=== PATIENT | female | born 1935 | race Caucasian/White ===

== ENCOUNTER 2023-12-16 09:54 | Inpatient (IN) | payer MEDICARE, SELFPAY ==
[2023-12-16] VITALS (19 sets, daily range): BP systolic 110–145; BP diastolic 52–98; BMI 21.6
--- NOTE | 2023-12-16 10:16 | CON.CAR ---
Addendum entered and electronically signed by Hair Muñoz MD 12/16/23 17:26:
I saw and examined the patient.
The Rn Admit's note was reviewed and I agree with the note.
Comment:
GEN: No distress, awake, Ox3
HEENT: supple, anicteric, mmm
LUNGS: CTA, no wheezes/rales
CV: Reg, S1/S2, 11/15 syst LSB, no gallop
ABD: soft, BS+, NT/ND
EXT: No edema
NEURO: Gross non-focal
SKIN: No rash
Plan:
She was recently hospitalized at [facility] for syncope and was found to have rapid atrial flutter and atrial fibrillation. Transesophageal echo revealed no left atrial appendage thrombus with a depressed ejection fraction of 20 to 25% but
cardioversion was not performed. At that point her primary digital sales executive felt AV node ablation will be a better choice for her over the long-term. A biventricular pacemaker is already in place.
Plan will be to proceed with AV node ablation. Post procedure we will consider reducing the amiodarone/Toprol doses.
Continue heart failure management with Toprol, Aldactone. Would consider reducing Toprol dose and adding Entresto.
Will need to investigate cost of Jardiance.
Continue Eliquis.
Original Note:
Consultation
Consultation Request
Date/Time Consultation Requested: 12/16/23
Date/Time Consultation Performed: 12/16/23
Performing Provider: Dr. Muñoz
Reason for Consultation: Transfer from [facility] for AV node ablation
Medical History
-
History of Present Illness:
Patient presented to [facility] with chest pain and possible syncope on 12/05/2023. Patient had serially undetectable troponin levels and it was noted and cardiology notes from transfer that she had nonobstructive coronary artery disease by cardiac
catheterization 2008 and again in 2019 so the plan was for conservative management. As for possible syncope on admission her orthostatic vital signs were initially positive but then corrected with IV fluids and knee-high compression stockings. She
continued with symptoms and also had 2:1 atrial flutter versus atrial tachycardia and Afib throughout her admission. She has a history of paroxysmal atrial fibrillation and was previously on amiodarone 100 mg daily but her burden increased leading
up to that admission at [facility]. The patient had a AUDI on 12/11/2023 with the plan for cardioversion to follow, but it appears that ultimately cardioversion was not performed as cardiology felt that the patient's rate control was adequate and
the prospects of a successful cardioversion were limited. The patient already has a Medtronic DOUBLE END PRODUCTION GRINDER�P in place this is a decision was made by cardiology at [facility] to send the patient to [facility] for an AV node ablation.
PMH:
Admitted to [facility] with chest pain and near syncope 12/05/23
s/p Medtronic DOUBLE END PRODUCTION GRINDER-P 12/29/20
Persistent Afib/tach with RVR
spontaneously converted to SR 12/15/23
Nonischemic CM EF 20-25% by AUDI 12/11/23
Chronic anemia, baseline hgb appears to be in 9 range
Chronic left bundle-branch block
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
Anteroseptal/apical scar/Ischemic cardiomyopathy EF 27%
Chronic amiodarone therapy
Chronic Eliquis OAC
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
History of right parietal ischemic stroke 06/2020
Hypertension
Hyperlipidemia
Past Medical History
Past Medical History: Other (in HPI)
Past Surgical History: Cardiac (Medtronic DOUBLE END PRODUCTION GRINDER-P 12/2020), Orthopedic (09/2004) and Other (femoral endarterectomy 08/2009)
Social History
Tobacco: Non-Smoker
Alcohol: None
Drug: None
Living: With Family
Family History
Family History: CAD and Other (CVA)
Allergies / Home Medications
Allergy/AdvReac Type Severity Reaction Status Date / Time
acetaminophen [From Percocet] Allergy Unknown Verified 12/28/20 13:42
diazepam [From Valium] Allergy Unknown Verified 12/28/20 13:42
lisinopril Allergy Unknown Verified 12/28/20 13:42
oxycodone [From Percocet] Allergy Unknown Verified 12/28/20 13:42
Penicillins Allergy Unknown Verified 12/28/20 13:42
Medication Instructions Recorded Confirmed Type
Iron 130 mg PO BID Supplement 12/29/20 12/29/20 History
amiodarone 200 mg tablet 100 mg PO DAILY Heart 12/29/20 12/29/20 History
disease/condition
amlodipine 5 mg tablet 5 mg PO DAILY Blood pressure 12/29/20 12/29/20 History
aspirin 81 mg tablet,delayed 81 mg PO Q48H Blood clot 12/29/20 12/29/20 History
release (Aspir-Low) prevention/tx
epoetin west 40,000 unit/mL 40,000 unit SC .[id number] ANEMIA 12/29/20 12/29/20 History
injection solution (Procrit)
glipizide 10 mg tablet 10 mg PO BID Diabetes 12/29/20 12/29/20 History
levothyroxine 75 mcg capsule 75 mcg PO DAILY Thyroid 12/29/20 12/29/20 History
metoprolol succinate 25 mg 25 mg PO DAILY Blood pressure 12/29/20 12/29/20 History
tablet,extended release 24 hr
pravastatin 20 mg tablet 20 mg PO DAILY High cholesterol 12/29/20 12/29/20 History
spironolactone 25 mg tablet 25 mg PO DAILY Heart Failure 12/29/20 12/29/20 History
Review of Systems
-
History Source: Patient
All other systems: Negative unless noted
Physical Exam
Vital Signs
Temp Pulse Resp Pulse Ox
97.8 F 62 18 96
12/16/23 10:00 12/16/23 10:00 12/16/23 10:00 12/16/23 10:00
GEN: NAD. AAOx3
HEENT: EOMI, MMM
LUNGS: CTA B/L, no wheezes or rales
CV: Reg, S1/S2, 2/6 systolic murmur
ABD: soft, BS+, NT/ND
EXT: No clubbing, cyanosis, lesions or edema B/L
NEURO: Gross non-focal
SKIN: Warm, dry and pink. No rash
Lab Results
Glu 179, BUN 34, Cre 1.2, sodium 134, potassium 5.1, magnesium 1.9
AST 27, ALT 37
WBC 10.6, Hgb 11.1, Hct 32.5, Plt 208
Impression / Plan
-
PCP: Dr. Olga Curry
Primary Fabric Stretcher: Dr. Benedicto Harvey
Assessment:
Transfer from [facility] for AV node ablation 12/16/23
Admitted to [facility] with chest pain and near syncope 12/05/23
s/p Medtronic DOUBLE END PRODUCTION GRINDER-P 12/29/20
Persistent Afib/tach with RVR
spontaneously converted to SR 12/15/23
Nonischemic CM EF 20-25% by AUDI 12/11/23
Chronic anemia, baseline hgb appears to be in 9 range
Chronic left bundle-branch block
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
Anteroseptal/apical scar/Ischemic cardiomyopathy EF 27%
Chronic amiodarone therapy
Chronic Eliquis OAC
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
History of right parietal ischemic stroke 06/2020
Hypertension
Hyperlipidemia
AUDI 12/11/23: [facility] study, EF 20-25%
Plan:
-Patient presented to [facility] with chest pain and possible syncope on 12/05/2023. Patient had serially undetectable troponin levels and it was noted and cardiology notes from transfer that she had nonobstructive coronary artery disease by cardiac
catheterization 2008 and again in 2019 so the plan was for conservative management. As for possible syncope on admission her orthostatic vital signs were initially positive but then corrected with IV fluids and knee-high compression stockings. She
continued with symptoms and also had 2:1 atrial flutter versus atrial tachycardia and Afib throughout her admission. She has a history of paroxysmal atrial fibrillation and was previously on amiodarone 100 mg daily but her burden increased leading
up to that admission at [facility]. The patient had a AUDI on 12/11/2023 with the plan for cardioversion to follow, but it appears that ultimately cardioversion was not performed as cardiology felt that the patient's rate control was adequate and
the prospects of a successful cardioversion were limited. The patient already has a Medtronic DOUBLE END PRODUCTION GRINDER�P in place this is a decision was made by cardiology at [facility] to send the patient to [facility] for an AV node ablation.
-Patient transferred from [facility] to today for a planned AV node ablation.
-Medtronic DOUBLE END PRODUCTION GRINDER-P in place and device checked today after patient arrived. She is now in SR. Afib is new just prior to admission to [facility] 12/05/23. Device report reviewed by me and ECG reviewed by me with sinus rhythm and paced rhythm.
-Patient spontaneously converted to SR prior to transfer.
-Cont Eliquis 2.5 mg BID. Patient had no TI thrombus on AUDI 12/11/23
-Prior to admission patient was taking amiodarone 100 mg daily and the dose was increased to 200 mg BID during [facility] admission.
-Nonobstructive CAD by last cath in 2019. Troponin levels were indeterminate to normal at [facility]. No recurrence of chest pain once rapid arrhythmia rates controlled.
-EF 20-25% by AUDI 12/11/23. Outpatient GDMT continued including Toprol XL but dose increased to 100 mg BID, spironolactone but dose increased to 25 mg daily
--- NOTE | 2023-12-16 10:48 | PTCARENOTE ---
Received the patient from [facility] in a stretcher. She is AAOX3, vital signs are stable. NSR/SB with occasional A/AV pacing noted on the monitor. She has no complains of pain. I assisted her to the commode with a RW x1 assist. She did
complain of dizziness when she stands up. She stated that she has been NPO since midnight. I oriented her to her room and her call gabriel is within reach. Her son and are at her bedside.
[2023-12-16 12:04] LABS: Hematocrit 32.5 % (37.0-47.0); Hemoglobin 11.1 g/dL (12.0-16.0); Mean Corp Hgb Conc. 34.2 g/dL (33.0-37.0); Mean Corpuscular Hgb 30.4 pg (27.0-31.0); Mean Platelet Volume 11.4 fL (7.4-10.4); Platelet Count 208 10^3/uL (130-400); Red Blood Cell Count 3.65 10^6/uL (4.20-5.40); Red Cell Dist. Width 13.8 % (11.5-14.5); White Blood Cell Count 10.6 10^3/uL (4.8-10.8)
[2023-12-16 12:50] LABS: ALT (SGPT) 37 U/L (0-35); AST (SGOT) 27 U/L (14-36); Albumin 3.3 g/dl (3.5-5.0); Alkaline Phosphatase 116 U/L (38-126); Blood Urea Nitrogen 34 mg/dl (7-17); Calcium 8.7 mg/dl (8.4-10.2); Carbon Dioxide 19 mmol/L (22-30); Chloride 109 mmol/L (98-107); Estimated Creatinine Clearance 20 ml/min; Glucose 179 mg/dl (70-99); Magnesium 1.9 mg/dl (1.6-2.3); Potassium 5.1 mmol/L (3.5-5.1); Sodium 134 mmol/L (135-145); Total Bilirubin 0.9 mg/dl (0.2-1.3); Total Protein 5.7 g/dl (6.3-8.2); eGFR 43.54
--- NOTE | 2023-12-16 14:21 | ITS.CL.ABL ---
Warranty Manager - Ablation
Ablation
Procedure Report:
ELECTROPHYSIOLOGY ABLATION REPORT
Date of procedure: December 16, 2023
Referring: Dr. Benedicto Harvey
INDICATION: Atrial fibrillation with rapid ventricular response which is medically refractory
HISTORY:
Recent admission for atrial fibrillation with rapid ventricular response and converted to sinus rhythm on amiodarone therapy.
'TIME-OUT': called and confirmed.
SEDATION/ANESTHESIA: Conscious
Vascular access: She has prior surgical scar in the right groin from prior dissection�bleeding during right femoral arterial access for left heart catheterization. We utilized ultrasound guidance for direct venipuncture on that side away from the
prior surgical scar and placed an 8 Wallisian short sheath which at the end of the case was removed with manual pressure.
PROCEDURE:
(1) The biventricular pacemaker placed in 2020 was interrogated and reprogrammed to VVI@40 ppm.
(2) A deflectable-tip mapping/ablation catheter was advanced to the medial tricuspid annulus region where a HIS potential identified. The catheter was slightly withdrawn from this location to a site more proximal, about correction between the HIS
recording position and that of the coronary sinus os. At this location, a small HIS potential was evident along with large amplitude atrial deflections and a relatively small ventricular electrogram.
Radiofrequency energy was applied at this site using a temperature-controlled system. 2 seconds after the onset of power delivery, an accelerated junctional rhythm occurred followed by deceleration and heart block. This RF application (max power
set: 70 W, Max temperature set: 60 degrees was continued for sequential 15 second lesions. At the conclusion of this, no escape rhythm was present.
(3) The biventricular pacemaker was interrogated and found to have stable function compared to the pre-ablation findings.
Pacing reprogrammed to DDDR@60-130 ppm.
COMPLICATIONS: None
SUMMARY: Status post AV bing ablation
RECOMMENDATIONS:
1. Out of bed 4 hours
2. Will have PT and OT evaluation and continue amiodarone loading plus apixaban
Copy to: Dr. Benedicto Harvey
--- NOTE | 2023-12-16 14:56 | PTCARENOTE ---
Received the patient from the labor relations consultant in her bed. The patient is AAOX3, VSS, and 93% on RA. 100% av paving is noted on the monitor. Instructed the patient on activity restrictions and expected oob time. Her call gabriel is within reach. Her family is
at her bedside.
[2023-12-16] MEDS: TYLENOL 650 MG PO (16:46)
[2023-12-16 17:36] LABS: Glucose - Point of Care 163 mg/dl (70-99)
[2023-12-16] MEDS: NOVOLOG FLEXPEN-MODERATE RESISTANCE 1 UNITS SC (18:40)
[2023-12-16] MEDS: GLUCOTROL 10 MG PO (19:36)
[2023-12-16] MEDS: PACERONE 200 MG PO (19:36)
[2023-12-16] MEDS: ELIQUIS 2.5 MG PO (19:37)
[2023-12-16] MEDS: TOPROL XL 100 MG PO (19:37)
--- NOTE | 2023-12-16 19:50 | PTCARENOTE ---
Assumed care of patient at 1900, patient AAO, denies chest pain/discomfort. Patient AV paced on monitor, VSS, lungs clear/diminished bilaterally, SPO2 96% on RA. Abd soft, non tender, Voiding without issue. Palpable distal pulses. PIV assessed
and maintained. Full assessment completed as documented, plan of care discussed with patient verbalizing understanding.
[2023-12-16] MEDS: LIPITOR 40 MG PO (21:25)
[2023-12-16 21:29] LABS: Glucose - Point of Care 316 mg/dl (70-99)
--- NOTE | 2023-12-16 23:27 | PTCARENOTE ---
No acute changes in assessment, patient resting comfortably, remains AV paced on monitor, VSS.
[2023-12-17] VITALS (10 sets, daily range): BP systolic 121–141; BP diastolic 64–87; PULSE 66–68; O2SAT 98; BMI 21.4
[2023-12-17 04:49] LABS: Hematocrit 30.3 % (37.0-47.0); Hemoglobin 10.4 g/dL (12.0-16.0); Mean Corp Hgb Conc. 34.3 g/dL (33.0-37.0); Mean Corpuscular Hgb 31.3 pg (27.0-31.0); Mean Corpuscular Volume 91.3 fL (81.0-99.0); Platelet Count 198 10^3/uL (130-400); Red Blood Cell Count 3.32 10^6/uL (4.20-5.40); Red Cell Dist. Width 13.8 % (11.5-14.5); White Blood Cell Count 8.2 10^3/uL (4.8-10.8)
[2023-12-17 05:32] LABS: Blood Urea Nitrogen 32 mg/dl (7-17); Calcium 8.3 mg/dl (8.4-10.2); Carbon Dioxide 19 mmol/L (22-30); Chloride 112 mmol/L (98-107); Estimated Creatinine Clearance 18 ml/min; Glucose 151 mg/dl (70-99); Magnesium 1.8 mg/dl (1.6-2.3); Potassium 4.7 mmol/L (3.5-5.1); Sodium 137 mmol/L (135-145); eGFR 39.55
[2023-12-17] MEDS: SYNTHROID 88 MCG PO (06:38)
--- NOTE | 2023-12-17 07:20 | W.PN.CARDCBS ---
Addendum entered and electronically signed by Olinda Joshi PA-C 12/17/23 09:13:
Patient and family agreeable to transfer to [facility] for rehab.
dictation # [id number]
Addendum entered and electronically signed by Adan Martell MD 12/17/23 09:08:
patient seen and examined
appropriate AV pacing on tele (BIV)
agree with PA-Lakeisha note and assessment
agree with PA-Lakeisha plan
exam:
heent ncat
jvp 6
cor regular
lungs ctab
abd soft nt nd
no ext edema
aao x3
non focal neurologically
Assessment:
s/p AV node ablation 12/16/23
Transfer from [facility] for AV node ablation 12/16/23
Admitted to [facility] with chest pain and near syncope 12/05/23
s/p Medtronic RESTAURANT LINE COOK-P 12/29/20
Persistent Afib/tach with RVR
spontaneously converted to SR 12/15/23Nonischemic CM EF 20-25% by AUDI 12/11/23
Chronic anemia, baseline hgb appears to be in 9 range
Chronic left bundle-branch block
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
Right femoral artery dissection complicating cath treated with femoral endarterectomy/patch angioplastyAnteroseptal/apical scar/Ischemic cardiomyopathy EF 27%
Chronic amiodarone therapy
Chronic Eliquis OAC
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
History of right parietal ischemic stroke 06/2020
Hypertension
Hyperlipidemia
AUDI 12/11/23: [facility] study, EF 20-25%
Plan:
-Patient is s/p successful AV node ablation 12/16/23. ECG is AV paced 12/16/23.
-Medtronic RESTAURANT LINE COOK-P in place and device checked 12/16/23. She is now in SR. Persistent Afib was relatively new just prior to admission to [facility] 12/05/23.
-Prior to admission at [facility] patient was taking amiodarone 100 mg daily and the dose was increased to 200 mg BID during [facility] admission. Will continue to load and then reduce to 200 mg daily.
-Cont Eliquis 2.5 mg BID. Patient had no TI thrombus on AUDI 12/11/23
-Nonobstructive CAD by last cath in 2019. Troponin levels were indeterminate to normal at [facility]. No recurrence of chest pain once rapid arrhythmia rates controlled.
-EF 20-25% by AUDI 12/11/23. Outpatient GDMT continued including Toprol XL but dose increased to 100 mg BID, spironolactone but dose increased to 25 mg daily
-Pending evaluations by PT/OT will plan for likely d/c 12/17/23
HPI: Patient presented to [facility] with chest pain and possible syncope on 12/05/2023.� Patient had serially undetectable troponin levels and it was noted and cardiology notes from transfer that she had nonobstructive coronary artery disease by cardiac
catheterization 2008 and again in 2019 so the plan was for conservative management.� As for possible syncope on admission her orthostatic vital signs were initially positive but then corrected with IV fluids and knee-high compression stockings.� She
continued with symptoms and also had 2:1 atrial flutter versus atrial tachycardia and Afib throughout her admission.� She has a history of paroxysmal atrial fibrillation and was previously on amiodarone 100 mg daily but her burden increased leading
up to that admission at [facility].� The patient had a AUDI on 12/11/2023 with the plan for cardioversion to follow, but it appears that ultimately cardioversion was not performed as cardiology felt that the patient's rate control was adequate and
the prospects of a successful cardioversion were limited.� The patient already has a Medtronic RESTAURANT LINE COOK�P in place this is a decision was made by cardiology at [facility] to send the patient to [facility] for an AV node ablation.
Original Note:
Today's Communication / Plan
-
PT/OT eval
In SR, cont amio
Possible d/c to home today
Impression / Plan
-
PCP: Dr. Olga Curry
Primary Doorperson Or Luggage Porter: Dr. Benedicto Harvey
Assessment:
s/p AV node ablation 12/16/23
Transfer from [facility] for AV node ablation 12/16/23
Admitted to [facility] with chest pain and near syncope 12/05/23
s/p Medtronic RESTAURANT LINE COOK-P 12/29/20
Persistent Afib/tach with RVR
spontaneously converted to SR 12/15/23
Nonischemic CM EF 20-25% by AUDI 12/11/23
Chronic anemia, baseline hgb appears to be in 9 range
Chronic left bundle-branch block
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
Anteroseptal/apical scar/Ischemic cardiomyopathy EF 27%
Chronic amiodarone therapy
Chronic Eliquis OAC
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
History of right parietal ischemic stroke 06/2020
Hypertension
Hyperlipidemia
AUDI 12/11/23: [facility] study, EF 20-25%
Plan:
-Patient is s/p successful AV node ablation 12/16/23. ECG is AV paced 12/16/23.
-Medtronic RESTAURANT LINE COOK-P in place and device checked 12/16/23. She is now in SR. Persistent Afib was relatively new just prior to admission to [facility] 12/05/23.
-Prior to admission at [facility] patient was taking amiodarone 100 mg daily and the dose was increased to 200 mg BID during [facility] admission. Will continue to load and then reduce to 200 mg daily.
-Cont Eliquis 2.5 mg BID. Patient had no TI thrombus on AUDI 12/11/23
-Nonobstructive CAD by last cath in 2019. Troponin levels were indeterminate to normal at [facility]. No recurrence of chest pain once rapid arrhythmia rates controlled.
-EF 20-25% by AUDI 12/11/23. Outpatient GDMT continued including Toprol XL but dose increased to 100 mg BID, spironolactone but dose increased to 25 mg daily
-Pending evaluations by PT/OT will plan for likely d/c 12/17/23
HPI: Patient presented to [facility] with chest pain and possible syncope on 12/05/2023. Patient had serially undetectable troponin levels and it was noted and cardiology notes from transfer that she had nonobstructive coronary artery disease by cardiac
catheterization 2008 and again in 2019 so the plan was for conservative management. As for possible syncope on admission her orthostatic vital signs were initially positive but then corrected with IV fluids and knee-high compression stockings. She
continued with symptoms and also had 2:1 atrial flutter versus atrial tachycardia and Afib throughout her admission. She has a history of paroxysmal atrial fibrillation and was previously on amiodarone 100 mg daily but her burden increased leading
up to that admission at [facility]. The patient had a AUDI on 12/11/2023 with the plan for cardioversion to follow, but it appears that ultimately cardioversion was not performed as cardiology felt that the patient's rate control was adequate and
the prospects of a successful cardioversion were limited. The patient already has a Medtronic RESTAURANT LINE COOK�P in place this is a decision was made by cardiology at [facility] to send the patient to [facility] for an AV node ablation.
Progress Note - Doorperson Or Luggage Porter
Subjective
Date of Service: December 17, 2023
She feels well, no palpitations
Objective
Labs:
12/17/23 04:15
12/17/23 04:15
Labs
Hgb 10.4 g/dL (12.0-16.0) L 12/17/23 04:15
Hct 30.3 % (37.0-47.0) L 12/17/23 04:15
Plt Count 198 10^3/uL (130-400) 12/17/23 04:15
Sodium 137 mmol/L (135-145) 12/17/23 04:15
Potassium 4.7 mmol/L (3.5-5.1) 12/17/23 04:15
BUN 32 mg/dl (7-17) H 12/17/23 04:15
Creatinine 1.3 mg/dL (0.6-1.0) H 12/17/23 04:15
Glucose 151 mg/dl (70-99) H 12/17/23 04:15
Vital Signs and I&O:
Vital Signs
Temp Pulse Resp BP Pulse Ox
97.9 F 60 16 131/68 95
12/17/23 03:55 12/17/23 03:52 12/17/23 03:55 12/17/23 03:52 12/17/23 03:55
Vital Signs
Temp Pulse Resp BP Pulse Ox
97.9 F 60 16 131/68 95
12/17/23 03:55 12/17/23 03:52 12/17/23 03:55 12/17/23 03:52 12/17/23 03:55
Intake & Output
12/15/23 12/16/23 12/17/23 12/18/23
06:59 06:59 06:59 06:59
Intake Total 240 / 240
Output Total 960 / 960
Balance -720 / -720
Physical Exam
Physical Exam
GEN: NAD. AAOx3
HEENT: EOMI, MMM
LUNGS: CTA B/L, no wheezes or rales
CV: Reg, S1/S2, 2/6 systolic murmur
ABD: soft, BS+, NT/ND
EXT: No clubbing, cyanosis, lesions or edema B/L
NEURO: Gross non-focal
SKIN: Warm, dry and pink. No rash
[2023-12-17] MEDS: GLUCOTROL 10 MG PO (08:35)
[2023-12-17] MEDS: TOPROL XL 100 MG PO (08:35)
[2023-12-17] MEDS: ELIQUIS 2.5 MG PO (08:35)
[2023-12-17] MEDS: PACERONE 200 MG PO (08:36)
[2023-12-17] MEDS: ALDACTONE 12.5 MG PO (08:36)
[2023-12-17] MEDS: FLUSH (NSS) 1 FLUSH IV (08:36)
[2023-12-17 08:54] LABS: Glycohemoglobin (HgbA1c) 7.5 % (4.0-5.6)
--- NOTE | 2023-12-17 09:05 | W.DS.TRANS ---
DC Summary - Material Inspector
-
Discharge Instructions:
Sleep Apnea Risk Intermediate
Discharge Diagnosis/Procedures AV node ablation
Diet Low Cholesterol,Diabetic, Carb Controlled
Activity Other activity
Driving Restrictions No driving for 24 hours
Bathing Restrictions OK to Shower
Stop these medications: -STOP taking aspirin
Instructions:
Stand-Alone Forms: DC Instructions- Cath/EP Lab
Changes to Home Medications: Yes
Discharge Medications:
DC Medications w/original date entered in [facility]
Iron 130 mg PO BID Supplement 12/29/20
epoetin west 40,000 unit/mL injection solution (Procrit) 40,000 unit SC .[id number] ANEMIA 12/29/20
glipizide 10 mg tablet 10 mg PO BID Diabetes 12/29/20
metoprolol succinate 25 mg tablet,extended release 24 hr 100 mg PO BID Blood pressure 12/29/20
spironolactone 25 mg tablet 12.5 mg PO DAILY Heart Failure 12/29/20
apixaban 2.5 mg tablet (Eliquis) 2.5 mg PO BID 12/16/23
atorvastatin 40 mg tablet 40 mg PO HS 12/16/23
levothyroxine 88 mcg tablet 88 mcg PO DAILY 12/16/23
amiodarone 200 mg tablet 200 mg PO DAILY Arrhythmia #30 tabs 12/17/23
amiodarone 200 mg tablet 200 mg PO Q12 Arrhythmia #28 tabs 12/17/23
Home Medication Changes
Aspirin stopped
Amiodarone dose increased
Pending Results: No
[2023-12-17 09:09] LABS: Glucose - Point of Care 151 mg/dl (70-99)
--- NOTE | 2023-12-17 09:27 | CM ---
Chart reviewed. Patient is independent of ADLS, lives with her in a [address], [facility], ambulates with a SPC and a rolling walker. Patient has become deconditioned from being an inpatient at [facility] since 12/05. Patient's daughter in law works at
[facility] and would like her to go there. Patient is agreeable. Bed available and confirmed. Wheelchair van arranged for 3pm. Patient's daughter in law, Galina, made aware. Plan is for the patient to be discharged to [facility].
[2023-12-17] MEDS: NOVOLOG FLEXPEN-MODERATE RESISTANCE 1 UNITS SC ×2 (09:58→13:08)
[2023-12-17 13:06] LABS: Glucose - Point of Care 184 mg/dl (70-99)
[2023-12-17] MEDS: FLUZONE HIGH-DOSE QUAD 2023-24 0.699999999999999956 ML IM (13:07)
== END 2023-12-17 16:46 | DRG 274 ==
LOC: IVU 09:54
PROVIDERS: Physician Assistant Medical; ADMITTING PHYSICIAN Internal Medicine Cardiovascular Disease; OTHER PHYSICIAN Internal Medicine Cardiovascular Disease
PROC: 02583ZZ Destruction of Conduction Mechanism, Percutaneous Approach (ICD-10-PCS; 2023-12-16)
DX: I48.19 Other persistent atrial fibrillation (principal); I48.92 Unspecified atrial flutter; I50.9 Heart failure, unspecified; I11.0 Hypertensive heart disease with heart failure; Z79.01 Long term (current) use of anticoagulants; E78.00 Pure hypercholesterolemia, unspecified; D64.9 Anemia, unspecified
CPT/HCPCS: 80048; 80053; 82962; 83036; 83735; 85027; 87070; 90662; 93005; 93650; 97162; 97166; 97535; C1733; C1894; G0008

== ENCOUNTER → 2023-12-22 10:43 | Outpatient (REF) | payer OTHER, MEDICARE, SELFPAY ==
[2023-12-22 11:49] LABS: % Basophils 0.3 % (0-2); % Eosinophils 2.3 % (0-6); % Immature Granulocytes 0.5 % (0-0.5); % Lymphocytes 10.4 % (20.5-51.1); % Monocytes 6.9 % (1.7-9.3); % Neutrophils 79.6 % (42.2-75.2); Absolute Eosinophils 0.3 10^3/uL (0-0.7); Absolute Immature Granulocytes 0.1 10^3/uL (0-0.05); Absolute Lymphocytes 1.3 10^3/uL (1.2-3.4); Absolute Monocytes 0.9 10^3/uL (0.1-0.6); Absolute Neutrophils 9.9 10^3/uL (1.4-6.5); Hematocrit 33.3 % (37.0-47.0); Mean Corpuscular Volume 93.8 fL (81.0-99.0); Mean Platelet Volume 10.9 fL (7.4-10.4); Nucleated Red Blood Cells % 0 %; Platelet Count 214 10^3/uL (130-400); Red Blood Cell Count 3.55 10^6/uL (4.20-5.40); Red Cell Dist. Width 13.7 % (11.5-14.5); White Blood Cell Count 12.4 10^3/uL (4.8-10.8)
[2023-12-22 12:20] LABS: ALT (SGPT) 24 U/L (0-35); AST (SGOT) 28 U/L (14-36); Albumin 3.2 g/dl (3.5-5.0); Alkaline Phosphatase 100 U/L (38-126); Blood Urea Nitrogen 26 mg/dl (7-17); Calcium 8.3 mg/dl (8.4-10.2); Carbon Dioxide 22 mmol/L (22-30); Chloride 108 mmol/L (98-107); Glucose 142 mg/dl (70-99); Magnesium 1.8 mg/dl (1.6-2.3); Potassium 4.9 mmol/L (3.5-5.1); Sodium 135 mmol/L (135-145); Total Bilirubin 0.6 mg/dl (0.2-1.3); Total Protein 5.6 g/dl (6.3-8.2); eGFR 48.33
[2023-12-22 12:33] LABS: TSH 1.15 uIU/ml (0.47-4.68)
[2023-12-23 11:43] LABS: Glycohemoglobin (HgbA1c) 7.4 % (4.0-5.6)
== END ==
LOC: OLABN 10:43
PROVIDERS: ATTENDING PHYSICIAN Student in an Organized Health Care Education/Training Program
DX: E11.9 Type 2 diabetes mellitus without complications (principal); D50.9 Iron deficiency anemia, unspecified; E83.42 Hypomagnesemia; E03.9 Hypothyroidism, unspecified
CPT/HCPCS: 36415; 80053; 83036; 83735; 84443; 85025

== ENCOUNTER → 2023-12-23 13:51 | Outpatient (REF) | payer OTHER, MEDICARE, SELFPAY ==
[2023-12-23 19:06] LABS: Urine Albumin Trace (Neg - Trace); Urine Bilirubin Negative (Negative); Urine Character Clear (Clear); Urine Color Yellow; Urine Glucose Negative (Negative); Urine Ketone Negative (Negative); Urine Leukocyte Trace (Negative); Urine Nitrite Negative (Negative); Urine Occult Blood Negative (Negative); Urine Urobilinogen Negative (Neg - 1+)
[2023-12-23 19:15] LABS: Urine Red Blood Cell None Seen /HPF (0-2)
== END ==
LOC: OLABN 13:51
PROVIDERS: ATTENDING PHYSICIAN Student in an Organized Health Care Education/Training Program
DX: R35.0 Frequency of micturition (principal); R39.15 Urgency of urination
CPT/HCPCS: 81003; 81015; 87086

== ENCOUNTER 2024-01-23 11:13 | Inpatient (IN) | payer MEDICARE, SELFPAY ==
[2024-01-23] VITALS (21 sets, daily range): BP systolic 88–140; BP diastolic 43–75; BMI 23.3; BMI 22.4
[2024-01-23 09:45] LABS: % Basophils 0.1 % (0-2); % Eosinophils 1.5 % (0-6); % Immature Granulocytes 0.6 % (0-0.5); % Lymphocytes 8.9 % (20.5-51.1); % Monocytes 8.3 % (1.7-9.3); % Neutrophils 80.6 % (42.2-75.2); Absolute Eosinophils 0.2 10^3/uL (0-0.7); Absolute Immature Granulocytes 0.1 10^3/uL (0-0.05); Absolute Lymphocytes 0.9 10^3/uL (1.2-3.4); Absolute Monocytes 0.8 10^3/uL (0.1-0.6); Absolute Neutrophils 8.1 10^3/uL (1.4-6.5); Mean Corp Hgb Conc. 30.2 g/dL (33.0-37.0); Mean Corpuscular Hgb 31.9 pg (27.0-31.0); Mean Corpuscular Volume 105.9 fL (81.0-99.0); Mean Platelet Volume 10.5 fL (7.4-10.4); Nucleated Red Blood Cells % 0.3 %; Platelet Count 221 10^3/uL (130-400); Red Blood Cell Count 1.88 10^6/uL (4.20-5.40); Red Cell Dist. Width 19.4 % (11.5-14.5); White Blood Cell Count 10.1 10^3/uL (4.8-10.8)
[2024-01-23 09:50] LABS: Hematocrit 19.9 % (37.0-47.0)
[2024-01-23 09:56] LABS: ALT (SGPT) 23 U/L (0-35); AST (SGOT) 34 U/L (14-36); Albumin 2.9 g/dl (3.5-5.0); Alkaline Phosphatase 91 U/L (38-126); Blood Urea Nitrogen 34 mg/dl (7-17); Calcium 7.8 mg/dl (8.4-10.2); Carbon Dioxide 22 mmol/L (22-30); Chloride 105 mmol/L (98-107); Estimated Creatinine Clearance 17 ml/min; Glucose 170 mg/dl (70-99); Potassium 4.5 mmol/L (3.5-5.1); Sodium 131 mmol/L (135-145); Total Bilirubin 0.6 mg/dl (0.2-1.3); Total Protein 5.2 g/dl (6.3-8.2); eGFR 36.19
[2024-01-23 10:01] LABS: INR 1.34; PT 16.4 Sec (11.4-14.6)
[2024-01-23 10:08] LABS: Troponin I 0.041 ng/ml
[2024-01-23] MEDS: PROTONIX IV 80 MG IV (10:10)
--- NOTE | 2024-01-23 10:25 | ED.GENMED ---
History of Present Illness
General
Chief Complaint: Chest Pain
Source: patient, ambulance crew and shelter
Exam Limitations: none
Time Seen by Provider: 01/23/24 09:41
Nursing documentation reviewed up to this point in time: agreed with
Travel History
Have you had any contact with someone who has COVID-19?: No
Do you have any symptoms of coronavirus? Fever > 100 degrees, chills, cough, shortness of breath, sore throat, loss of taste or smell, muscle aches, or headache?: No
History of Present Illness
History of Present Illness:
88-year-old female with Wade history of A-fib currently on Eliquis last dose 4 hours prior to arrival to the emergency department, cardiomyopathy CAD, pacemaker in place, NIDDM, hypothyroidism presenting to the emergency department today with
concerns of chest pain shortness of breath going to the bathroom a few hours prior to arrival. This resolved with rest has been feeling some lightheadedness with exertion over the past week or so. Also was noticed dark in stool over the past few
weeks. Denies abdominal pain has had some loose stool over the past few days
Review of Systems
Review of Systems
Allergies reviewed?: Yes
All Other Systems: ROS reviewed and negative except as documented in HPI and ROS
Phy Exam
Physical Exam
Physical Exam:
GENERAL: Alert , in no apparent distress
EYE: pupils equal and reactive
NECK: Supple, no significant adenopathy.
ENT: o/p clr, mmm.
CARDIAC: Regular rate and rhythm .
LUNGS: Clear breath sounds bilaterally, no acute respiratory distress, no wheezes/rales/rhonchi
ABDOMEN: Soft, without focal tenderness, no r/g, no cvat
NEUROLOGICAL: Alert and oriented, no focal neuro deficits
SKIN: Warm and dry, skin intact.
MUSCULOSKELETAL: No edema, well perfused.
PSYCH: Normal and appropriate interaction.
Scores
Heart Score for Chest Pain Patients
STEMI patient?: No
History: Moderately Suspicious
ECG: Nonspecific Repolarization
Age: >/= 65 years
Risk Factors: >/= 3 Risk Factors or History of CAD
Troponin: >1 - <3 x Normal Limit
Heart Score for Chest Pain Patients: 7
Heart Score Risk: 72.7 % MACE over next 6 weeks
Course
Orders/Labs/Results
Orders:
Orders
01/23/24 09:19
Electrocardiogram (*1) Urgent
Reason for Study: Chest Pain
Cardiac Monitoring- Treatment ONCE
EKG- Treatment ONCE
IV Insert/Care/Rem.- Treatment PRN
O2 Therapy [RESP] Urgent
Titrate/Wean O2 to maintain O2 sat greater than (%): 90
Special Instructions: Maintain sats >/=90%
Pulse Ox/spot Check [RESP] Urgent
Quantity: 1
Special Instructions: ON ROOM AIR
01/23/24 09:20
Complete Blood Count/With Diff Urgent
Comprehensive Metabolic Panel Urgent
Prothrombin Time Urgent
Troponin I Urgent
01/23/24 09:43
Chest [CR Chest - 2 Views ] Urgent
Comment:
Reason For Exam: cp
01/23/24 10:04
* Blood Bank Products Urgent
Blood Bank Products: *Packed RBC Leuko(PRBC's)
Quantity: 2
Transfuse Today: Yes
Reason: Anemia
01/23/24 10:05
Pantoprazole [Protonix IV] 80 mg IV NOW STA
01/23/24 10:09
Type And Crossmatch Urgent
01/23/24 10:22
Add On- LAB Routine
Tests Added?: ferritin, TIBC, iron level, B12 level, folate level
GASTROINTESTINAL CONSULT Routine
Consulting Provider: Hardy Mccoy
Was physician already notified: Yes
Abnormal Lab Results
01/23/24 01/23/24
09:20 10:09
RBC 1.88 L 10^6/uL
(4.20-5.40)
Hgb 6.0 L* g/dL
(12.0-16.0)
Hct 19.9 L* %
(37.0-47.0)
MCV 105.9 H fL
(81.0-99.0)
MCH 31.9 H pg
(27.0-31.0)
MCHC 30.2 L g/dL
(33.0-37.0)
RDW 19.4 H %
(11.5-14.5)
MPV 10.5 H fL
(7.4-10.4)
Abs Immat Gran (auto) 0.1 H 10^3/uL
(0-0.05)
Absolute Neuts (auto) 8.1 H 10^3/uL
(1.4-6.5)
Absolute Lymphs (auto) 0.9 L 10^3/uL
(1.2-3.4)
Absolute Monos (auto) 0.8 H 10^3/uL
(0.1-0.6)
Immature Gran % 0.6 H %
(0-0.5)
Neutrophils % 80.6 H %
(42.2-75.2)
Lymphocytes % 8.9 L %
(20.5-51.1)
PT 16.4 H Sec
(11.4-14.6)
Sodium 131 L mmol/L
(135-145)
BUN 34 H mg/dl
(7-17)
Creatinine 1.4 H mg/dL
(0.6-1.0)
Glucose 170 H mg/dl
(70-99)
Calcium 7.8 L mg/dl
(8.4-10.2)
Troponin I 0.041 H* ng/ml
Total Protein 5.2 L g/dl
(6.3-8.2)
Albumin 2.9 L g/dl
(3.5-5.0)
Crossmatch IS Only See Detail
01/23/24 09:20
01/23/24 09:20
Vital Signs
Initial and Last Documented VS:
Initial Vital Signs
Temp Pulse Resp BP Pulse Ox
98.4 F 63 22 114/71 99
01/23/24 09:21 01/23/24 09:21 01/23/24 09:21 01/23/24 09:21 01/23/24 09:21
Last Documented Vital Signs
Temp Pulse Resp BP Pulse Ox
98.4 F 60 21 106/50 94
01/23/24 09:21 01/23/24 10:15 01/23/24 10:15 01/23/24 10:02 01/23/24 09:55
MDM/Problems Addressed
MDM/Problems Addressed:
88-year-old female presenting to the emergency department today with concerns of chest discomfort lightheadedness walking to the back this morning resolved with upon arrival vital signs are normal EKG without emergent findings hemoglobin to be 6
which is 5 points lower than previous hemoglobin 1 month ago. She also claims that her stool has been dark and is guaiac positive. No abdominal pain. Patient was written for 2 units of blood GI was immediately consulted patient admitted for
transfusion and GI assessment.
*Critical Care Note
Total Time (30-74mins, 75-104mins- exclusive of procedures): Not Applicable
ED Attending Note
-
Portions of this chart may have been created with voice recognition software.� Occasional wrong word or��sound alike� substitutions may have occurred due to the inherent limitations of voice recognition software.
Discharge Plan
Departure
Patient Disposition: Admit
Date of Disposition: 01/23/24
Time of Disposition: 10:26
Admit to: IMU
Admit to doctor: Verdin
Presentation/result/management discussed w/ accepting MD/DO: Hospitalist
Patient with high blood pressure during this ER visit?: No
Condition: Good
Covid-19: Not Applicable
Discharge Problem:
Anemia, GI bleed
Prescriptions:
No Action
glipizide 10 MG tablet
5 mg PO BID
spironolactone 25 MG tablet
12.5 mg PO DAILY
Procrit 40,000 UNIT/ML solution
40,000 unit SC UD
Rx Instructions:
hold 6 days, administer 1 day hold for 14 days
ferrous sulfate 325 mg (65 mg iron) Tablet
650 mg PO BID Qty: 0
Patient Comments:
65mg tablets, takes 2 tabs BID
atorvastatin 40 mg Tablet
40 mg PO HS
levothyroxine 88 mcg Tablet
88 mcg PO DAILY
Eliquis 2.5 mg Tablet
2.5 mg PO BID
amiodarone 200 mg tablet
200 mg PO DAILY Qty: 30 11RF
acetaminophen [Tylenol] 325 mg Tablet
650 mg PO Q4HPRN PRN (Reason: mild pain)
lidocaine 4 % Adhesive Patch,Medicated
1 patch TOPICAL DAILY
trazodone 50 mg Tablet
25 mg PO Q8HPRN PRN (Reason: anxiety)
metoprolol tartrate [Lopressor] 100 mg Tablet
100 mg PO BID
magnesium hydroxide [Milk of Magnesia] 400 mg/5 mL Suspension
2,400 mg PO HSPRN PRN (Reason: constipation)
bisacodyl [Dulcolax (bisacodyl)] 10 mg Suppository
10 mg VA [id number] PRN (Reason: if no bm aftr mom)
Referrals:
Lizandro Stevenson DO [Family Provider] -
Interventions
Interventions:
*Risk Screen - Suicide Last Done: 01/23/24 09:21
*General Assessment Last Done: 01/23/24 09:21
*Neglect/Abuse Screening Last Done: 01/23/24 09:21
ED- Fall Risk Assessment Last Done: 01/23/24 09:26
*ED COVID-19 Vaccine History Last Done: 01/23/24 09:21
ED- Cardiac Assessment Last Done: 01/23/24 09:26
--- NOTE | 2024-01-23 10:41 | HPS.HSE ---
Family Physician
-
Family Physician: Lizandro Stevenson, DO
Chief Complaint
-
epigastric abd pain, nausea, exertional chest pain and shortness of breath which resolved with rest.
History of Present Illness
88-year-old female with PMH Persistent A-fib on Eliquis, cardiomyopathy/CAD, pacemaker in place, NIDDM, hypothyroidism; p/w exertional chest pain and shortness of breath, which resolved with rest. She also c/o epigastric abd pain, nausea (no
vomiting) and lightheadedness.� She has noticed dark stool over the past few weeks.�
Medical History
Past Medical History
Past Medical History: Reports Other
Additional Past Medical History:
# Persistent atrial fibrillation
# Status post AV node ablation 12/16/2023.
# Status post Medtronic TURNTABLE ENGINEER-P 12/29/2020.
# Chronic amiodarone therapy.
# Nonischemic cardiomyopathy ejection fraction 20-25 percent by AUDI 12/11/2023.
# Nonobstructive coronary artery disease by cardiac catheterization in August 2020.
# Hypertension.
# History of right femoral artery dissection as a cardiac catheterization complication treated with femoral endarterectomy and patch angioplasty August 2020.
# History of right parietal ischemic stroke June 2020.
# Hyperlipidemia.
Past Surgical History: Reports Other
Additional Past Surgical History:
see above
Social History
Tobacco: Non-smoker
Family History
Family History: Not pertinent
Allergies / Home Medications
Allergies reflects when Allergies were last updated in [facility].
Home Medications with original date entered in [facility]
Allergy/Medication List:
Allergies
Allergy/AdvReac Type Severity Reaction Status Date / Time
acetaminophen [From Percocet] Allergy Unknown Verified 01/23/24 09:26
diazepam [From Valium] Allergy Unknown Verified 01/23/24 09:26
lisinopril Allergy Unknown Verified 01/23/24 09:26
oxycodone [From Percocet] Allergy Unknown Verified 01/23/24 09:26
Penicillins Allergy Unknown Verified 01/23/24 09:26
Home Medications
epoetin west 40,000 unit/mL injection solution (Procrit) 40,000 unit SC UD ANEMIA 12/29/20
ferrous sulfate 325 mg (65 mg iron) tablet 650 mg PO BID Supplement ##0 12/29/20
glipizide 10 mg tablet 5 mg PO BID Diabetes 12/29/20
spironolactone 25 mg tablet 12.5 mg PO DAILY Heart Failure 12/29/20
apixaban 2.5 mg tablet (Eliquis) 2.5 mg PO BID Blood Clot Prevention/Tx 12/16/23
atorvastatin 40 mg tablet 40 mg PO HS High Cholesterol 12/16/23
levothyroxine 88 mcg tablet 88 mcg PO DAILY@0700 Thyroid 12/16/23
amiodarone 200 mg tablet 200 mg PO DAILY Arrhythmia #30 tabs 12/17/23
acetaminophen 325 mg tablet (Tylenol) 650 mg PO Q4HPRN PRN mild pain 01/23/24
bisacodyl 10 mg rectal suppository (Dulcolax (bisacodyl)) 10 mg UT [id number] PRN if no bm aftr mom 01/23/24
lidocaine 4 % topical patch 1 patch topical DAILY right shoulder pain 01/23/24
magnesium hydroxide 400 mg/5 mL oral suspension (Milk of Magnesia) 2,400 mg PO HSPRN PRN constipation 01/23/24
metoprolol tartrate 100 mg tablet (Lopressor) 100 mg PO BID Blood Pressure 01/23/24
trazodone 50 mg tablet 25 mg PO Q8HPRN PRN anxiety 01/23/24
Review of Systems
-
Abdomen/GI: Reports See HPI, Abdominal Pain (epigastric) and Nausea
Physical Exam
Vital Signs
Vital Signs
Temp Pulse Resp BP Pulse Ox
36.9 C 60 21 106/50 94
01/23/24 09:21 01/23/24 10:15 01/23/24 10:15 01/23/24 10:02 01/23/24 09:55
Physical Exam
General: Well Developed and Appears Chronically Ill
HEENT: NormoCephalic and Atraumatic
Respiratory: Clear and Non Labored Respirations; No Accessory Resp Muscle Use
Cardiac: S1/S2 and Regular Rhythm; No Murmur or Rub
GI: Soft, Non Tender, Non Distended and Normal Bowel Sounds; No Organomegaly
Rectal: Deferred by Provider
Musculoskeletal: No Clubbing, No Cyanosis and No Edema
Skin: No Rash
Neuro: Awake
Psych: Calm and Intact Judgment/Insight
Laboratory Results
-
01/23/24 09:20
01/23/24 09:20
Laboratory Results
PT 16.4 Sec (11.4-14.6) H 01/23/24 09:20
INR 1.34 01/23/24 09:20
Total Bilirubin 0.6 mg/dl (0.2-1.3) 01/23/24 09:20
AST 34 U/L (14-36) 01/23/24 09:20
ALT 23 U/L (0-35) 01/23/24 09:20
Alkaline Phosphatase 91 U/L (38-126) 01/23/24 09:20
Troponin I 0.041 ng/ml H* 01/23/24 09:20
Data Reviewed
-
Lab Data: Labs Reviewed by me
Impression/Plan
-
88-year-old female with PMH Persistent A-fib on Eliquis, cardiomyopathy/CAD, pacemaker in place, NIDDM, hypothyroidism; p/w exertional chest pain and shortness of breath, which resolved with rest. She also c/o epigastric abd pain, nausea (no
vomiting) and lightheadedness.� She has noticed dark stool over the past few weeks.�
A/P:
# Epigastric abd pain, with symptomatic anemia, acute on chronic anaemia, suspect due to GIB
Hgb 6.0 from baseline 11
2 units PRBC ordered to be transfused, follow Hgb
Start Protonix 40 IV BID
Check iron studies, B12, folate level
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
GI CS
Will consult cardiology to follow along due to extensive cardiac PMH and recent AV node ablation
# elevated trop likely due to demand ischemia
Trop 0.041, cont to trend until peak
EKG V paced
# ALENA on CKD stage 3, ALENA likely prerenal with GIB
SCr 1.4 from baseline 1.1
Monitor SCr
# Persistent atrial fibrillation
# Status post AV node ablation 12/16/2023.
# Status post Med[employer]onic TURNTABLE ENGINEER-P 12/29/2020.
# Chronic amiodarone therapy.
# Nonischemic cardiomyopathy ejection fraction 20-25 percent by AUDI 12/11/2023.
# Nonobstructive coronary artery disease by cardiac catheterization in August 2020.
# Hypertension.
Cardiology CS to follow along
Hold TRUCK BODY BUILDER Lopressor and Aldactone with current hypotension
# History of right femoral artery dissection as a cardiac catheterization complication treated with femoral endarterectomy and patch angioplasty August 2020.
# History of right parietal ischemic stroke June 2020.
# Hyperlipidemia.
DVT ppx: SCD
FC
[2024-01-23 10:49] LABS: Iron 59 ug/dl (37-170)
[2024-01-23 11:00] LABS: Percent Saturation 18 % (20-50); Total Iron Binding Capacity 323 ug/dl (265-497)
[2024-01-23 11:26] LABS: Ferritin 31.4 ng/ml (11.1-264.0)
--- NOTE | 2024-01-23 11:54 | CON.CAR ---
Addendum entered and electronically signed by Izaiah Kraft MD 01/23/24 16:59:
I saw and examined the patient.
The Egg Packer's note was reviewed and I agree with the note.
Comment: Briefly, 88-year-old woman past medical history of paroxysmal atrial fibrillation on Eliquis, prior CVA and nonischemic cardiomyopathy (EF 20-25%) presenting with symptomatic transfusion-dependent anemia with Hgb of 6. After receiving
blood transfusion she was resting comfortably in bed without chest discomfort or shortness of breath.
Okay to hold oral anticoagulation while working on potential bleed with plan to resume when safe from GI standpoint
Ultimately could consider watchman
Given known cardiomyopathy may require IV diuresis with blood transfusion, but currently volume status seems reasonable
Agree with holding BB and aldactone given hypotension earlier today
Original Note:
Consultation
Consultation Request
Date/Time Consultation Requested: 01/23/2024
Date/Time Consultation Performed: 01/23/2024 at 1400
Requesting Provider: Dr. Read
Performing Provider: Dr. Kraft
Reason for Consultation: GIB on Eliquis
Medical History
-
History of Present Illness:
HPI: Rica is an 88 year old female with PMH of paroxysmal atrial fibrillation, cardiomyopathy, nonobstructive CAD, anemia, HTN, HLD, and CVA who presented to [facility] for evaluation of chest pain and SOB in the AM while walking to the bathroom.
Symptoms resolved with rest, however given concern, she came to ER for further evaluation. Upon further questioning, patient admitted to dark stool for the past few weeks with loose stools over the past few days. On arrival to ER, she was noted to
have hemoglobin of 6.0. given concern for GIB, she was started on IV pantoprazole and admitted. 2 units PRBCs ordered. Cardiology consulted for evaluation as patient is on Eliquis for afib and had recent AV node ablation 12/16/2023. At this time,
patient reports she is chest pain free and denies any SOB at rest.
PMH:
Paroxysmal Afib/tach
s/p AV node ablation 12/16/23
s/p Med[employer]onic MONOMER RECOVERY OPERATOR-P 12/29/20
Nonischemic CM EF 20-25% by AUDI 12/11/23
Chronic LBBB
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
Chronic amiodarone therapy
Chronic Eliquis OAC
Chronic anemia
h/o GI bleeding/recurrent anemia presumed due to AV malformations
h/o right parietal ischemic stroke 06/2020
Hypertension
Hyperlipidemia
Past Medical History
Past Medical History: Other (In HPI)
Past Surgical History: Cardiac (Medtronic MONOMER RECOVERY OPERATOR-P 12/2020, AV node ablation 12/17/2023), Orthopedic and Other (femoral endarterectomy 2008)
Social History
Tobacco: Non-Smoker
Alcohol: None
Drug: None
Living: With Family
Family History
Family History: CAD and Other (CVA)
Allergies / Home Medications
Allergy/AdvReac Type Severity Reaction Status Date / Time
acetaminophen [From Percocet] Allergy Unknown Verified 01/23/24 09:26
diazepam [From Valium] Allergy Unknown Verified 01/23/24 09:26
lisinopril Allergy Unknown Verified 01/23/24 09:26
oxycodone [From Percocet] Allergy Unknown Verified 01/23/24 09:26
Penicillins Allergy Unknown Verified 01/23/24 09:26
Medication Instructions Recorded Confirmed Type
epoetin west 40,000 unit/mL 40,000 unit SC UD ANEMIA 12/29/20 01/23/24 History
injection solution (Procrit)
ferrous sulfate 325 mg (65 mg 650 mg PO BID Supplement ##0 12/29/20 01/23/24 History
iron) tablet
glipizide 10 mg tablet 5 mg PO BID Diabetes 12/29/20 01/23/24 History
spironolactone 25 mg tablet 12.5 mg PO DAILY Heart Failure 12/29/20 01/23/24 History
apixaban 2.5 mg tablet (Eliquis) 2.5 mg PO BID Blood Clot 12/16/23 01/23/24 History
Prevention/Tx
atorvastatin 40 mg tablet 40 mg PO HS High Cholesterol 12/16/23 01/23/24 History
levothyroxine 88 mcg tablet 88 mcg PO DAILY@0700 Thyroid 12/16/23 01/23/24 History
amiodarone 200 mg tablet 200 mg PO DAILY Arrhythmia #30 tabs 12/17/23 01/23/24 Rx
acetaminophen 325 mg tablet 650 mg PO Q4HPRN PRN mild pain 01/23/24 01/23/24 History
(Tylenol)
bisacodyl 10 mg rectal suppository 10 mg MS [id number] PRN if no bm aftr 01/23/24 01/23/24 History
(Dulcolax (bisacodyl)) mom
lidocaine 4 % topical patch 1 patch topical DAILY right 01/23/24 01/23/24 History
shoulder pain
magnesium hydroxide 400 mg/5 mL 2,400 mg PO HSPRN PRN constipation 01/23/24 01/23/24 History
oral suspension (Milk of Magnesia)
metoprolol tartrate 100 mg tablet 100 mg PO BID Blood Pressure 01/23/24 01/23/24 History
(Lopressor)
trazodone 50 mg tablet 25 mg PO Q8HPRN PRN anxiety 01/23/24 01/23/24 History
Review of Systems
-
History Source: Patient
All other systems: Negative unless noted
Physical Exam
Vital Signs
Temp Pulse Resp BP Pulse Ox
98.4 F 62 13 104/47 100
01/23/24 09:21 01/23/24 11:30 01/23/24 11:30 01/23/24 11:30 01/23/24 11:30
Lab Results
01/23/24 09:20
01/23/24 09:20
Troponin I 0.041 ng/ml H* 01/23/24 09:20
Physical Exam
General: Well Developed, Well Nourished and No Apparent Distress
Respiratory: Clear and Non Labored Respirations
Cardiac: S1/S2 and Regular Rhythm
Musculoskeletal: No Clubbing, No Cyanosis and No Edema
Skin: Warm and Dry
Neuro: AO x 3 and Nonfocal/Grossly Intact
Psych: Calm
Impression / Plan
-
PCP: Dr. Olga Curry
Maturity Checker: Dr. Harvey
Impression:
Presented with SOB
Acute blood loss anemia
Suspected GIB
Elevated troponin, suspect nonischemic myocardial injury
ALENA
Paroxysmal Afib/tach
s/p AV node ablation 12/16/23
s/p Med[employer]onic MONOMER RECOVERY OPERATOR-P 12/29/20
Nonischemic CM EF 20-25% by AUDI 12/11/23
Chronic LBBB
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
Chronic amiodarone therapy
Chronic Eliquis OAC - on hold currently w/ GIB
Chronic anemia
h/o GI bleeding/recurrent anemia presumed due to AV malformations
h/o right parietal ischemic stroke 06/2020
Hypertension
Hyperlipidemia
AUDI 12/11/23: HRH study, EF 20-25%
Plan:
-Presented with SOB and chest pain in the setting of anemia with hemoglobin 6.0 on arrival. 2 units PRBCs ordered and transfusing
-GI consulted by primary service given concern for GIB, following for active bleeding and continuing on BID IV PPI for now. Await plan for further workup/endoscopy.
-Eliquis on hold. Eventually resume once safe per GI. Consider for eventual watchman procedure given h/o recurent GIB.
-Elevated troponin noted at 0.041. Suspect nonischemic myocardial injury in the setting of severe anemia. Trend trop to peak. Nonobstructive CAD by cath in 2019.
-Patient has history of atrial fibrillation, V paced on EKG. HR stable on amiodarone 200mg daily.
-EF 20-25% by AUDI at [facility] 12/2023. As OP is on Toprol XL 100mg BID and spironolactone 25mg daily per last DC summary. Both on hold currently given hypotension.
-Follow volume status closely with transfusions. As OP is not on lasix.
-ALENA noted with creat up to 1.4. Spironolactone on hold.
HPI: Rica is an 88 year old female with PMH of paroxysmal atrial fibrillation, cardiomyopathy, nonobstructive CAD, anemia, HTN, HLD, and CVA who presented to [facility] for evaluation of chest pain and SOB in the AM while walking to the bathroom.
Symptoms resolved with rest, however given concern, she came to ER for further evaluation. Upon further questioning, patient admitted to dark stool for the past few weeks with loose stools over the past few days. On arrival to ER, she was noted to
have hemoglobin of 6.0. given concern for GIB, she was started on IV pantoprazole and admitted. 2 units PRBCs ordered. Cardiology consulted for evaluation as patient is on Eliquis for afib and had recent AV node ablation 12/16/2023. At this time,
patient reports she is chest pain free and denies any SOB at rest.
Data Reviewed
-
EKG: Tracing Personally Visualized and interpreted
Labs: Labs Reviewed by me
Old Records: Reviewed
[2024-01-23 11:57] LABS: Folate 10.8 ng/ml (2.76-20); Vitamin B12 332 pg/ml (239-931)
--- NOTE | 2024-01-23 12:38 | CON.GI ---
Addendum entered and electronically signed by Hardy Mccoy MD 01/23/24 17:51:
I saw and examined the patient.
The EVIDENCE TECHNICIAN or PA's note was reviewed and I agree with the note.
Comment: 88yo female presents with chest pain and SOB. Hgb 6.0 on admission and stool black heme positive. She has hx SB AVMs requiring EGD/cautery with Dr Leo at [facility] every couple years until about 2017. She was eventually started on
Sandostatin LAR 20mg IM monthly and that has helped control the bleeding. She has not required EGDs in the last years. She was recently hospitalized for cardiac issues and missed her dose of Sandostatin in December. She had AV node ablation done
on 12/16/23. She is currently on Eliquis, last dose this am.
REC:
Transfuse PRBC
Protonix BID IV
Trend Hgb
Would set up for EGD once OK from cardiac standpoint to treat possible bleeding AVMs. Could have bled since she missed her Sandostatin dose last month
Will follow
Original Note:
Consultation
-
Date/Time Consultation Requested: 01/23/24 1022
Date/Time Consultation Performed: 01/23/24 1239
Requesting Provider: Dr. Read
Performing Provider: Dr. Mccoy/BRI Rodriguez
Reason for Consultation: anemia, OB pos stool
Medical History
Chief Complaint / HPI
Chief Complaint: CP
History of Present Illness:
88-year-old female with past medical history of atrial fibrillation currently on Eliquis last dose 5 AM this morning, CAD, permanent pacemaker, nonischemic cardiomyopathy, CVA, diabetes, hypothyroidism, multiple small bowel AVMs with last
cauterization in [address] Leo at [facility], [place] with need for prior IV infusions changed over to Procrit followed by [facility] now on oral iron after being discharged to residential facility who presents to the emergency
room with chest pain. The patient states that this morning she felt as if a 'elephant was sitting on my chest and my heart was pounding out of my chest'. She also states that she had nausea as well. She states that she has been having shortness
of breath for some time at least over the past 2 weeks. We are asked to evaluate for significant anemia with a hemoglobin of 6.0 and stool that is occult blood positive. The patient tells me that she was followed by Dr. Leo for many years for
history of GI bleeding associated with '200 small bowel AVMs'. For which she had cauterized many times. She states that she was eventually placed on IV iron and then finally placed on Procrit which kept her hemoglobin stable. She no longer
required endoscopic evaluation for maintenance. Her last time that she had endoscopic evaluation was back in 2017. She states that since that time her stools have been light brown. Her last dose of Procrit was approximately 2 months ago. She
states that after she was hospitalized at [facility] she was placed on oral iron 2 pills a day and that is when her stool color changed. She also became constipated. She was given Dulcolax which then produced loose stool. After that she was
also given Imodium and has not had a bowel movement since that time. This morning she did have nausea associated with her chest pain. Her sons are present at bedside and states that while she was at [facility] her hemoglobin was 8. When she
was hospitalized here in December her hemoglobin was in the 11 range. The patient states that she feels gassy. She denies any fevers, chills, vomiting, hematochezia, dysphagia or dyne aphasia. She denies any early satiety or unintentional weight
loss. She does have a history of colon polyps. She does not have a history of ulcers. She has no family history of gastrointestinal malignancies.
Past Medical History
Past Medical History: Arrhythmias (A-fib), CAD, CVA and Other (Nonischemic cardiomyopathy, diabetes, hypothyroidism, small bowel AVMs, iron deficiency anemia)
Past Surgical History: Cardiac (Pacemaker, AV node ablation, right femoral artery dissection, femoral artery endarterectomy)
Social History
Tobacco: Non-Smoker
Alcohol: None
Drug: None
Living: Halfway
Family History
Family History: Other (No family history gastrointestinal malignancy or IBD)
Allergies / Home Medications
Allergy/AdvReac Type Severity Reaction Status Date / Time
acetaminophen [From Percocet] Allergy Unknown Verified 01/23/24 09:26
diazepam [From Valium] Allergy Unknown Verified 01/23/24 09:26
lisinopril Allergy Unknown Verified 01/23/24 09:26
oxycodone [From Percocet] Allergy Unknown Verified 01/23/24 09:26
Penicillins Allergy Unknown Verified 01/23/24 09:26
Medication Instructions Recorded
epoetin west 40,000 unit/mL 40,000 unit SC UD ANEMIA 12/29/20
injection solution (Procrit)
ferrous sulfate 325 mg (65 mg 650 mg PO BID Supplement ##0 12/29/20
iron) tablet
glipizide 10 mg tablet 5 mg PO BID Diabetes 12/29/20
spironolactone 25 mg tablet 12.5 mg PO DAILY Heart Failure 12/29/20
apixaban 2.5 mg tablet (Eliquis) 2.5 mg PO BID Blood Clot 12/16/23
Prevention/Tx
atorvastatin 40 mg tablet 40 mg PO HS High Cholesterol 12/16/23
levothyroxine 88 mcg tablet 88 mcg PO DAILY@0700 Thyroid 12/16/23
amiodarone 200 mg tablet 200 mg PO DAILY Arrhythmia #30 tabs 12/17/23
acetaminophen 325 mg tablet 650 mg PO Q4HPRN PRN mild pain 01/23/24
(Tylenol)
bisacodyl 10 mg rectal suppository 10 mg OR [id number] PRN if no bm aftr 01/23/24
(Dulcolax (bisacodyl)) mom
lidocaine 4 % topical patch 1 patch topical DAILY right 01/23/24
shoulder pain
magnesium hydroxide 400 mg/5 mL 2,400 mg PO HSPRN PRN constipation 01/23/24
oral suspension (Milk of Magnesia)
metoprolol tartrate 100 mg tablet 100 mg PO BID Blood Pressure 01/23/24
(Lopressor)
trazodone 50 mg tablet 25 mg PO Q8HPRN PRN anxiety 01/23/24
Review of Systems
-
All other systems: A 12 pt ROS was Negative except as stated above in HPI
Vital Signs
Temp Pulse Resp BP Pulse Ox
97.7 F 68 13 90/66 98
01/23/24 12:09 01/23/24 12:05 01/23/24 12:05 01/23/24 12:05 01/23/24 11:45
Physical Exam
Exam
General: No Apparent Distress
HEENT: Anicteric
Respiratory: Clear
Cardiac: Regular Rhythm
GI: Soft, Non Tender, Non Distended and Normal Bowel Sounds
Rectal: Hem Positive (Per ER record)
Musculoskeletal: No Edema
Skin: Warm and Dry
Neuro: AO x 3
Psych: Calm
Results
WBC 10.1 10^3/uL (4.8-10.8) 01/23/24 09:20
Hgb 6.0 g/dL (12.0-16.0) L* 01/23/24 09:20
Hct 19.9 % (37.0-47.0) L* 01/23/24 09:20
MCV 105.9 fL (81.0-99.0) H 01/23/24 09:20
Plt Count 221 10^3/uL (130-400) 01/23/24 09:20
Absolute Neuts (auto) 8.1 10^3/uL (1.4-6.5) H 01/23/24 09:20
PT 16.4 Sec (11.4-14.6) H 01/23/24 09:20
INR 1.34 01/23/24 09:20
Sodium 131 mmol/L (135-145) L 01/23/24 09:20
Potassium 4.5 mmol/L (3.5-5.1) 01/23/24 09:20
Chloride 105 mmol/L (98-107) 01/23/24 09:20
Carbon Dioxide 22 mmol/L (22-30) 01/23/24 09:20
BUN 34 mg/dl (7-17) H 01/23/24 09:20
Creatinine 1.4 mg/dL (0.6-1.0) H 01/23/24 09:20
Calcium 7.8 mg/dl (8.4-10.2) L 01/23/24 09:20
Total Bilirubin 0.6 mg/dl (0.2-1.3) 01/23/24 09:20
AST 34 U/L (14-36) 01/23/24 09:20
ALT 23 U/L (0-35) 01/23/24 09:20
Alkaline Phosphatase 91 U/L (38-126) 01/23/24 09:20
Diagnostic Image Results:
CXR (pending)
Prior GI Procedures:
EGD: Performed at [facility] [place] records not available to me, approximately or prior to 2017
Colonoscopy: Performed at [facility] records unavailable to me, approximately or prior to 2017
Assessment / Plan
-
88-year-old female with past medical history of atrial fibrillation currently on Eliquis last dose 5 AM this morning, CAD, permanent pacemaker, nonischemic cardiomyopathy, CVA, diabetes, hypothyroidism, multiple small bowel AVMs with last
cauterization in [address] Leo at [facility], [place] with need for prior IV infusions changed over to Procrit followed by [facility] now on oral iron after being discharged to residential facility who presents to the emergency
room with chest pain. Found to have hemoglobin of 6.0. Baseline is roughly 11. Stool positive for occult blood and is dark. Patient has been off of her routine Procrit for approximately 1 to 2 months. Has a history of small bowel AVMs in the
past requiring multiple cauterizations roughly 2017. WBC 10.0, hemoglobin 6.0, hematocrit 19.9, platelet 221, PT 16.4, INR 1.3, sodium 131, potassium 4.5, BUN 34, creatinine 1.4 iron 59, TIBC 323, percent saturation 18, ferritin 31.4, B12 332,
folate 10.8, total bilirubin 0.6, AST 34, ALT 23, alk phos 91, troponin 0.041.
Impression:
Severe anemia
Occult blood positive stools
History of small bowel AVMs
Paroxysmal A-fib currently on anticoagulation, Eliquis last dose this a.m.
Chest pain, elevated troponin
Nonischemic cardiomyopathy EF 20-25%
History of CAD
Plan:
-Okay for clear liquid diet, no reds
-Continue pantoprazole 40 mg IV twice daily
-Transfuse as ordered, keep hemoglobin greater than 8.
-Watch for signs of active GI bleeding
-Await cardiology consultation
-Eliquis currently on hold
-Trend hemoglobin
-Further recommendations to be forthcoming regarding endoscopic evaluation.
-
-
Thank you for consultation and allowing me to participate in the patient's care. Please call the call center professional GI physician during the after hours with any questions or concerns.
[2024-01-23] MEDS: COMPAZINE 5 MG IV (15:33)
--- NOTE | 2024-01-23 16:45 | PTCARENOTE ---
Admitted to 3344 approx 1200, admission completed bedside/IMU monitors in place. 100% V paced on tele, BP 90/60. Pale, c/o low back pain and she states she has restless legs at times and right should pain which has a lido patch on currently.
Mepilex pad placed on her back, lido patch left on and SCDs placed. Also c/o nausea- IV Compazine given x1 and she was able to get a jello and some tea in her. 1st unit PRBC completed now just started 2nd unit. Shes felt to weak to get up --Voided
100ml on bedpan- will get up to bsc with next urge to void.
[2024-01-23] MEDS: TYLENOL 650 MG PO (20:14)
[2024-01-23] MEDS: NSS (PRESERVATIVE FREE) 10 ML IV (20:15)
[2024-01-23] MEDS: PROTONIX IV 40 MG IV (20:15)
--- NOTE | 2024-01-23 21:20 | PTCARENOTE ---
Received pt at change of shift drowsy but oriented. She has restless legs and Temp was 101.0 so medicated with Tylenol Po. Skin is warm and dry and she just reports that she is tired. Monitor shows V paced rhythm at 60 and she denies SOB,
transfusion completed,
[2024-01-23 23:53] LABS: Troponin I 0.076 ng/ml
[2024-01-24] VITALS (72 sets, daily range): BP systolic 67–145; BP diastolic 35–64; BMI 23.1
[2024-01-24 00:03] LABS: Hematocrit 26.4 % (37.0-47.0)
[2024-01-24 00:05] LABS: Hemoglobin 8.4 g/dL (12.0-16.0)
--- NOTE | 2024-01-24 00:13 | W.PN.UPDATE ---
Update Note
Progress Note Update
Patient is hypotensive with SBP in low 80s, map 55, asymptomatic, no sign of active bleeding, repeated hgb level is 8.4 x2. IVF NSS total 500cc, one time order of midodrine were placed. No improvement SBP still in low 80s and map 53, Levophed
started.
[2024-01-24] MEDS: ProAmatine 5 MG PO (00:21)
[2024-01-24] MEDS: NSS 500 IV (00:21)
--- NOTE | 2024-01-24 01:08 | PTCARENOTE ---
Addendum entered by Danette Estrada RN 01/24/24 01:09:
Rechecked BP manually and it was 84/40, HR is 60 and V paced. WIRE RIGGER notified and midodrine given and 500 NSS IV at 100cc/hr. Will continue to monitor pt.
Original Note:
Pt noted to be hypotensive and admits to sl lightheadedness. Map 55 rechecke BP manuallt
[2024-01-24 05:06] LABS: Hemoglobin 8.4 g/dL (12.0-16.0); Mean Corp Hgb Conc. 32.3 g/dL (33.0-37.0); Mean Corpuscular Hgb 31.2 pg (27.0-31.0); Mean Corpuscular Volume 96.7 fL (81.0-99.0); Mean Platelet Volume 10.9 fL (7.4-10.4); Platelet Count 122 10^3/uL (130-400); Red Blood Cell Count 2.69 10^6/uL (4.20-5.40); Red Cell Dist. Width 22.8 % (11.5-14.5); White Blood Cell Count 22.1 10^3/uL (4.8-10.8)
[2024-01-24 05:18] LABS: Blood Urea Nitrogen 48 mg/dl (7-17); Calcium 7.3 mg/dl (8.4-10.2); Carbon Dioxide 20 mmol/L (22-30); Chloride 106 mmol/L (98-107); Estimated Creatinine Clearance 15 ml/min; Glucose 163 mg/dl (70-99); Potassium 3.6 mmol/L (3.5-5.1); Sodium 134 mmol/L (135-145); eGFR 30.83
[2024-01-24 05:36] LABS: Troponin I 0.089 ng/ml
[2024-01-24] MEDS: LEVOPHED 250 IV (06:10)
[2024-01-24] MEDS: SYNTHROID 88 MCG PO (06:35)
--- NOTE | 2024-01-24 08:06 | PTCARENOTE ---
Bp was continuing to be low so Weight Inspector ordered Levophed , started at 0610 and titrated to 5mcg to keep MAP > 65. See vital signs for BP trends.
[2024-01-24] MEDS: NSS (PRESERVATIVE FREE) 10 ML IV ×2 (08:20→21:18)
[2024-01-24] MEDS: PROTONIX IV 40 MG IV ×2 (08:20→21:19)
--- NOTE | 2024-01-24 08:49 | W.PN.HOSP.TC ---
Today's Communication/Plan
-
teran culture
renew and wean pressors
consider IVF
may need renal and/or ID consults
Assessment / Plan
Assessment / Plan
pt is an 88 year old female
acute hypotension requiring pressors--does not appear to be bleeding (hemorrhagic shock) nor cardiac (cardiogenic shock)--with fever and elevated WBC count, would consider septic shock as possible cause--pt having trouble urinating--bladder scan and
send for UA C&S, blood cultures, CXR without acute findings--unclear what to treat, would hold abx for now--
Epigastric abdominal pain, with symptomatic anemia, acute blood loss on chronic anemia, suspect due to GIB--HGB 6.0--transfused 2 units and now 8.4--seems to have stabilized--apprec GI, cont PPI--hold Eliquis--iron studies seem adequate so likely
anemia of chronic disease at baseline, folate WNL--B12 low normal, will replete
nonischemic myocardial injury with elevated trop likely due to GI bleed/critical illness--troponin 0.041 rising to 0.089--cont to trend--apprec cards input--also had recent AV node ablation
ALENA on CKD stage 3, ALENA likely prerenal with GIB--creat continues to rise, up to 1.6 rom baseline 1.1
Persistent atrial fibrillation/Status post AV node ablation 12/16/2023/Status post [employer] DRILL DOCTOR-P 12/29/2020/Chronic amiodarone therapy/Nonischemic cardiomyopathy ejection fraction 20-25 percent by AUDI 12/11/2023/Nonobstructive coronary artery
disease by cardiac catheterization in August 2020--apprec cards--on amio--holding eliquis
Essential Hypertension--hold all BP meds as pt on levophed for BP support
History of right femoral artery dissection as a cardiac catheterization complication treated with femoral endarterectomy and patch angioplasty August 2020.
History of right parietal ischemic stroke June 2020.
Hyperlipidemia.
DVT ppx: SCD
code status--full code
Anticipated Discharge: > 48 hours
Subjective/Interval History
-
Date of Service: January 24, 2024
pt c/o inability to urinate
Objective Data
-
Labs:
Laboratory Results
01/23/24 01/24/24
23:48 04:27
WBC 22.1 H
Hgb 8.4 L D 8.4 L
Hct 26.4 L 26.0 L
Plt Count 122 L D
Sodium 134 L
Potassium 3.6
Chloride 106
Carbon Dioxide 20 L
BUN 48 H
Creatinine 1.6 H
Glucose 163 H
Calcium 7.3 L
Vital Signs:
max temp for 24 hours
01/23/24
19:30
Temp 101.0 F H
Vital Signs
Temp Pulse Resp BP Pulse Ox
97.4 F 60 20 110/50 100
01/24/24 07:40 01/24/24 06:45 01/24/24 06:45 01/24/24 06:45 01/24/24 06:09
I&O
01/23/24 01/24/24 01/25/24
06:59 06:59 06:59
Intake Total 1640 / 1640
Output Total 100 / 100
Balance 1540 / 1540
Review of Systems
-
All other systems: Reviewed and negative
Genitourinary: Reports Difficulty Voiding
Physical Exam
-
General: Well Developed, Well Nourished and No Apparent Distress
HEENT: Normocephalic and Atraumatic; Negative Oxygen
Respiratory: Clear to Auscultation; Negative Wheezes or Rhonchi
Cardiac: Regular Rhythm and S1/S2; Negative Murmur
GI: Soft, Nontender, Nondistended and Normal Bowel Sounds
Musculoskeletal: No Clubbing, No Cyanosis and No Edema
Neuro: Awake
Psych: Calm
--- NOTE | 2024-01-24 09:23 | W.PN.GI.CBS2 ---
Today's Communication / Plan
-
Started on pressor for hypotension
No overt bleeding and Hgb stable at 8.4.
Cont BID protonix for now, change to gtt if overt bleeding
EGD when OK from cardiac standpoint for procedure, likely has SB AVMs that require cautery
Hold Eliquis, last dose yesterday
Assessment / Plan
-
88-year-old female with past medical history of atrial fibrillation currently on Eliquis last dose 5 AM this morning, CAD, permanent pacemaker, nonischemic cardiomyopathy, CVA, diabetes, hypothyroidism, multiple small bowel AVMs with last
cauterization in [address] Leo at [facility], [place] with need for prior IV infusions changed over to Procrit followed by [facility] now on oral iron after being discharged to residential facility who presents to the emergency
room with chest pain. Found to have hemoglobin of 6.0. Baseline is roughly 11. Stool positive for occult blood and is dark. Patient has been off of her routine Procrit for approximately 1 to 2 months. Has a history of small bowel AVMs in the
past requiring multiple cauterizations roughly 2016. WBC 10.0, hemoglobin 6.0, hematocrit 19.9, platelet 221, PT 16.4, INR 1.3, sodium 131, potassium 4.5, BUN 34, creatinine 1.4 iron 59, TIBC 323, percent saturation 18, ferritin 31.4, B12 332,
folate 10.8, total bilirubin 0.6, AST 34, ALT 23, alk phos 91, troponin 0.041.
Impression:
Severe anemia
Occult blood positive stools
History of small bowel AVMs. Treated with monthly Sandostatin LAR, missed dose in December due to AV node ablation hospitalization
Paroxysmal A-fib currently on anticoagulation, Eliquis last dose 315 am
Chest pain, elevated troponin 0.41-0.76-0.89
Nonischemic cardiomyopathy EF 20-25%
History of CAD
Subjective
Subjective
Date of Service: January 24, 2024
Pt hypotensive SBP 80s overnight, started on levophed. No overt bleeding
Objective
Data Reviewed
Laboratory Data:
Laboratory Results
01/24/24 04:27
Laboratory Results
PT 16.4 Sec (11.4-14.6) H 01/23/24 09:20
INR 1.34 01/23/24 09:20
Total Bilirubin 0.6 mg/dl (0.2-1.3) 01/23/24 09:20
AST 34 U/L (14-36) 01/23/24 09:20
ALT 23 U/L (0-35) 01/23/24 09:20
Alkaline Phosphatase 91 U/L (38-126) 01/23/24 09:20
Vital Signs and I&O:
Vital Signs
Temp Pulse Resp BP Pulse Ox
97.4 F 60 20 110/50 100
01/24/24 07:40 01/24/24 06:45 01/24/24 06:45 01/24/24 06:45 01/24/24 06:09
I&O
01/23/24 01/24/24 01/25/24
06:59 06:59 06:59
Intake Total 1640 / 1640
Output Total 100 / 100 275 / 275
Balance 1540 / 1540 -275 / -275
Physical Exam
Physical Exam
GI: Soft, Non Distended and Non Tender
--- NOTE | 2024-01-24 09:51 | CM ---
Patient from [facility] with Dx acute blood loss anemia, suspected GI bleed s/p transfusions. Levophed gtt. Clear liquids.
Spoke with Jett, nurse Unit [address], [facility] ([place] [phone]); the patient was there for short term rehab and had recent prior admission to their SNF for the same. She was A&O, pleasant, cooperative. The patient was receiving PT/OT, was
assist of 1 to the chair, SOB with exertion. Her skin was intact. She does not know if the patient has a bed hold. The patient's daughter in law Galina works at [facility]. [facility]
Spoke with Serjio, patient's son; the patient resides with her in a 2 story house in [facility] with 1 PETR.
The patient was A/O at home and independent in ADLs and ambulation.
She had been at [facility] previously recently and was discharged to home, then readmitted there for more rehab.
The is 89 yrs old and no longer able to manage the patient's affairs as he becomes confused.
DME - hospital bed, RW, SPC, w/c
VN - prior [facility]
SNF - [facility] x2
PCP - Olga Curry
Pharmacy - [facility]
A secondary contact is the patient's son Jaswant Cobos ([place] [phone]).
Serjio says the patient will want to return to [facility] to complete rehab, and he agrees.
Patient will need PT/OT Evals when medically stable.
SNF referral placed.
Plan follow up with [facility] for acceptance.
[2024-01-24] MEDS: PACERONE PO (09:53)
[2024-01-24] MEDS: CALCIUM GLUCONATE 280 MG IV (09:53)
--- NOTE | 2024-01-24 10:11 | W.PN.CARDCBS ---
Today's Communication / Plan
-
Agree with holding Eliquis, resume when safe from GI perspective
Agree with holding beta-alison, spironolactone given hypotension and ALENA
Impression / Plan
-
PCP: Dr. Olga Curry
Laboratory Chief: Dr. Harvey
Impression:
Presented with SOB
Acute blood loss anemia
Suspected GIB
Elevated troponin, suspect nonischemic myocardial injury
ALENA
Paroxysmal Afib/tach
s/p AV node ablation 12/16/23
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
Nonischemic CM EF 20-25% by AUDI 12/11/23
Chronic LBBB
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
Chronic amiodarone therapy
Chronic Eliquis OAC - on hold currently w/ GIB
Chronic anemia
h/o GI bleeding/recurrent anemia presumed due to AV malformations
h/o right parietal ischemic stroke 06/2020
Hypertension
Hyperlipidemia
AUDI 12/11/23: HR study, EF 20-25%
Plan:
-Presented with SOB and chest pain in the setting of anemia with hemoglobin 6.0 on arrival and received pRBCs and currently on BID IV PPI
-Requiring pressor for hemodynamic support and currently with ALENA on CKD
-Eliquis which she takes for cardioembolic ppx of AFib on hold for transfusion dependent anemia. Eventually resume once safe per GI. Consider for eventual watchman procedure given h/o recurrent GIB.
-Elevated troponin noted at 0.041. Suspect nonischemic myocardial injury in the setting of severe anemia and renal dysfunction. Trend trop to peak. Nonobstructive CAD by cath in 2019. Given age and comorbidites would favor conservative approach
-EF 20-25% by AUDI at [facility] 12/2023. As OP is on Toprol XL 100mg BID and spironolactone 25mg daily per last DC summary. Both on hold currently given hypotension.
-Follow volume status closely with transfusions, may require diuresis at some point but appears euvolemic
HPI: Rica is an 88 year old female with PMH of paroxysmal atrial fibrillation, cardiomyopathy, nonobstructive CAD, anemia, HTN, HLD, and CVA who [facility] pain and SOB in the AM while walking to the bathroom.
Symptoms resolved with rest, however given concern, she came to ER for further evaluation. Upon further questioning, patient admitted to dark stool for the past few weeks with loose stools over the past few days. On arrival to ER, she was noted to
have hemoglobin of 6.0. given concern for GIB, she was started on IV pantoprazole and admitted. 2 units PRBCs ordered. Cardiology consulted for evaluation as patient is on Eliquis for afib and had recent AV node ablation 12/16/2023. At this time,
patient reports she is chest pain free and denies any SOB at rest.
Progress Note - Laboratory Chief
Subjective
Date of Service: January 24, 2024
Patient hypotensive overnight and required pressor support. She is resting comfortably this morning and is not reporting any chest discomfort or shortness of breath. Tells me breathing is comfortable on room air.
Objective
Labs:
01/24/24 04:27
Labs
Hgb 8.4 g/dL (12.0-16.0) L 01/24/24 04:27
Hct 26.0 % (37.0-47.0) L 01/24/24 04:27
Plt Count 122 10^3/uL (130-400) L D 01/24/24 04:27
PT 16.4 Sec (11.4-14.6) H 01/23/24 09:20
INR 1.34 01/23/24 09:20
Sodium 134 mmol/L (135-145) L 01/24/24 04:27
Potassium 3.6 mmol/L (3.5-5.1) 01/24/24 04:27
BUN 48 mg/dl (7-17) H 01/24/24 04:27
Creatinine 1.6 mg/dL (0.6-1.0) H 01/24/24 04:27
Glucose 163 mg/dl (70-99) H 01/24/24 04:27
Troponins
01/23/24 01/23/24 01/24/24
09:20 23:11 04:27
Troponin I 0.041 H* 0.076 H* 0.089 H*
01/24/24
04:27
Troponin I Cancelled
Vital Signs and I&O:
Vital Signs
Temp Pulse Resp BP Pulse Ox
97.4 F 60 20 105/62 100
01/24/24 07:40 01/24/24 09:53 01/24/24 06:45 01/24/24 09:53 01/24/24 06:09
Vital Signs
Temp Pulse Resp BP Pulse Ox
97.4 F 60 20 105/62 100
01/24/24 07:40 01/24/24 09:53 01/24/24 06:45 01/24/24 09:53 01/24/24 06:09
Intake & Output
01/22/24 01/23/24 01/24/24 01/25/24
06:59 06:59 06:59 06:59
Intake Total 1640 / 1640
Output Total 100 / 100 275 / 275
Balance 1540 / 1540 -275 / -275
Physical Exam
Physical Exam
Gen: NAD, AA
HEENT: NC/AT, sclera anicteric
Neck: No JVD
CV: RRR, NL s1/s2
Lungs: CTAB on RA
Abd: S/ND
Ext: No LE edema
Skin: Warm, dry
Neuro: Non-focal
--- NOTE | 2024-01-24 12:00 | PTCARENOTE ---
Patient AAOx3, c/o being very tired. Levo gtt on, see documentation, will wean as tolerated. Patient initially not voiding but has since urinated twice, PVR documented, UA sent. No BMs. BPs soft but stable, all other VSS. RA 97%. Updated patients
son by phone. Continuing to closely monitor patient.
[2024-01-24 13:27] LABS: Hematocrit 30.4 % (37.0-47.0); Hemoglobin 9.7 g/dL (12.0-16.0)
[2024-01-24 13:52] LABS: Troponin I 0.072 ng/ml
[2024-01-24] MEDS: VITAMIN B-12 1000 MCG PO (15:15)
[2024-01-24 15:48] LABS: Urine Albumin Trace (Neg - Trace); Urine Bilirubin 1+ (Negative); Urine Character Slightly Cloudy (Clear); Urine Color Yellow; Urine Glucose 1+ (Negative); Urine Ketone Trace (Negative); Urine Leukocyte 1+ (Negative); Urine Nitrite Negative (Negative); Urine Occult Blood Negative (Negative); Urine Urobilinogen Negative (Neg - 1+)
[2024-01-24 16:08] LABS: Urine Squamous Cell >30 /LPF (Few)
[2024-01-24 16:09] LABS: Urine Bacteria Few (Negative); Urine Red Blood Cell 0-2 /HPF (0-2)
[2024-01-24 21:15] LABS: Hematocrit 25.3 % (37.0-47.0); Hemoglobin 8.4 g/dL (12.0-16.0)
[2024-01-24 21:46] LABS: Troponin I 0.066 ng/ml
[2024-01-24] MEDS: TYLENOL 650 MG PO (22:18)
[2024-01-25] VITALS (28 sets, daily range): BP systolic 89–144; BP diastolic 41–95; PULSE 60–72; BMI 23.4
[2024-01-25] MEDS: LEVOPHED 250 IV (02:18)
[2024-01-25 05:13] LABS: Hematocrit 29.4 % (37.0-47.0); Hemoglobin 9.3 g/dL (12.0-16.0); Mean Corp Hgb Conc. 31.6 g/dL (33.0-37.0); Mean Corpuscular Hgb 30.5 pg (27.0-31.0); Mean Corpuscular Volume 96.4 fL (81.0-99.0); Mean Platelet Volume 10.8 fL (7.4-10.4); Platelet Count 170 10^3/uL (130-400); Red Blood Cell Count 3.05 10^6/uL (4.20-5.40); Red Cell Dist. Width 21.1 % (11.5-14.5); White Blood Cell Count 18.6 10^3/uL (4.8-10.8)
[2024-01-25 05:38] LABS: Blood Urea Nitrogen 48 mg/dl (7-17); Calcium 8.2 mg/dl (8.4-10.2); Carbon Dioxide 20 mmol/L (22-30); Chloride 104 mmol/L (98-107); Estimated Creatinine Clearance 16 ml/min; Glucose 158 mg/dl (70-99); Magnesium 1.8 mg/dl (1.6-2.3); Sodium 133 mmol/L (135-145); eGFR 33.31
[2024-01-25] MEDS: SYNTHROID 88 MCG PO (06:21)
[2024-01-25] MEDS: NSS (PRESERVATIVE FREE) 10 ML IV ×2 (07:48→21:22)
[2024-01-25] MEDS: PROTONIX IV 40 MG IV ×2 (07:49→21:22)
[2024-01-25] MEDS: VITAMIN B-12 1000 MCG PO (07:51)
[2024-01-25] MEDS: PACERONE 200 MG PO (07:52)
--- NOTE | 2024-01-25 07:54 | W.PN.HOSP.TC ---
Today's Communication/Plan
-
will add requip
PT/OT
HGB stable
await cultures
wean levophed
Assessment / Plan
Assessment / Plan
pt is an 88 year old female
acute hypotension requiring pressors--does not appear to be bleeding (hemorrhagic shock) nor cardiac (cardiogenic shock)--with fever and elevated WBC count, would consider septic shock as possible cause but source unclear-- UA (not clean catch > 30
sq cells), urine and blood cultures pending, CXR without acute findings--unclear what to treat, would hold abx for now--levophed down to 2 mcgs
Epigastric abdominal pain, with symptomatic anemia, acute blood loss on chronic anemia, suspect due to GIB--HGB 6.0--transfused 2 units and now 9.3--seems to have stabilized, no active bleeding--apprec GI, cont PPI--hold Eliquis--iron studies seem
adequate so likely anemia of chronic disease at baseline, folate WNL--B12 low normal, started repletion
nonischemic myocardial injury with elevated trop likely due to GI bleed/critical illness--troponin 0.041 rising to 0.089--cont to trend--apprec cards input--also had recent AV node ablation
ALENA on CKD stage 3, ALENA likely prerenal with GIB--creat continues to rise, up to 1.6 from baseline 1.1
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
disease by cardiac catheterization in August 2020--apprec cards--on amio--holding eliquis
Essential Hypertension--hold all BP meds as pt on levophed for BP support
History of right femoral artery dissection as a cardiac catheterization complication treated with femoral endarterectomy and patch angioplasty August 2020.
History of right parietal ischemic stroke June 2020.
undiagnosed restless leg?--legs twitching per pt--mag and K are WNL--will add requip and see if helps
Hyperlipidemia.
DVT ppx: SCD
code status--full code
Anticipated Discharge: > 48 hours
Subjective/Interval History
-
Date of Service: January 25, 2024
pt c/o restless leg twitching
Objective Data
-
Labs:
Laboratory Results
01/24/24 01/25/24
20:55 04:52
WBC 18.6 H
Hgb 8.4 L 9.3 L
Hct 25.3 L 29.4 L
Plt Count 170 D
Sodium 133 L
Potassium 4.0
Chloride 104
Carbon Dioxide 20 L
BUN 48 H
Creatinine 1.5 H
Glucose 158 H
Calcium 8.2 L
Vital Signs:
max temp for 24 hours
01/24/24
19:40
Temp 98.5 F
Vital Signs
Temp Pulse Resp BP Pulse Ox
97.6 F 61 17 127/63 98
01/25/24 03:01 01/25/24 07:52 01/25/24 05:45 01/25/24 07:52 01/25/24 05:45
I&O
01/24/24 01/25/24 01/26/24
06:59 06:59 06:59
Intake Total 1640 / 1640 780 / 780
Output Total 100 / 100 1115 / 1115
Balance 1540 / 1540 -335 / -335
Review of Systems
-
All other systems: Reviewed and negative
Neuro: Reports Other (twitching legs)
Physical Exam
-
General: Well Developed, Well Nourished and No Apparent Distress
HEENT: Normocephalic and Atraumatic
Respiratory: Clear to Auscultation; Negative Wheezes or Rhonchi
Cardiac: Regular Rhythm and S1/S2; Negative Murmur
GI: Soft, Nontender, Nondistended and Normal Bowel Sounds
Musculoskeletal: No Clubbing, No Cyanosis and No Edema
Neuro: Awake
--- NOTE | 2024-01-25 08:15 | PTCARENOTE ---
Patient received from security shift supervisor. Patient resting comfortably in bed. AAO, VSS on Levo gtt. No events noted over night. No complaints of pain at this time. Currently on 3mcg of Levo, will attempt to wean. Diet advanced to full liquid. Call
gabriel in reach.
[2024-01-25] MEDS: REQUIP 0.25 MG PO ×2 (09:33→21:24)
[2024-01-25] MEDS: LIDOCAINE 4% PATCH 1 PATCH TOPICAL (09:33)
--- NOTE | 2024-01-25 10:30 | W.PN.GI.CBS2 ---
Today's Communication / Plan
-
Hgb stable
Pressors being weaned
Troponins have peaked
Discussed with Cardiology. Will plan EGD tomorrow for cautery of AVMs
Assessment / Plan
-
88-year-old female with past medical history of atrial fibrillation currently on Eliquis last dose 5 AM this morning, CAD, permanent pacemaker, nonischemic cardiomyopathy, CVA, diabetes, hypothyroidism, multiple small bowel AVMs with last
cauterization in [address] Leo at [facility], [place] with need for prior IV infusions changed over to Procrit followed [facility] now on oral iron after being discharged to group home facility who presents to the emergency
room with chest pain. Found to have hemoglobin of 6.0. Baseline is roughly 11. Stool positive for occult blood and is dark. Patient has been off of her routine Procrit for approximately 1 to 2 months. Has a history of small bowel AVMs in the
past requiring multiple cauterizations roughly 2016. WBC 10.0, hemoglobin 6.0, hematocrit 19.9, platelet 221, PT 16.4, INR 1.3, sodium 131, potassium 4.5, BUN 34, creatinine 1.4 iron 59, TIBC 323, percent saturation 18, ferritin 31.4, B12 332,
folate 10.8, total bilirubin 0.6, AST 34, ALT 23, alk phos 91, troponin 0.041.
Impression:
Severe anemia
Occult blood positive stools
History of small bowel AVMs. Treated with monthly Sandostatin LAR, missed dose in December due to AV node ablation hospitalization
Paroxysmal A-fib currently on anticoagulation, Eliquis last dose 3/15 am
Chest pain, elevated troponin 0.41-0.76-0.89
Nonischemic cardiomyopathy EF 20-25%
History of CAD
Subjective
Subjective
Date of Service: January 25, 2024
No complaints. No abd pain. Pressors being weaned
Objective
Data Reviewed
Laboratory Data:
Laboratory Results
01/25/24 04:52
01/25/24 04:52
Laboratory Results
PT 16.4 Sec (11.4-14.6) H 01/23/24 09:20
INR 1.34 01/23/24 09:20
Magnesium 1.8 mg/dl (1.6-2.3) 01/25/24 04:52
Total Bilirubin 0.6 mg/dl (0.2-1.3) 01/23/24 09:20
AST 34 U/L (14-36) 01/23/24 09:20
ALT 23 U/L (0-35) 01/23/24 09:20
Alkaline Phosphatase 91 U/L (38-126) 01/23/24 09:20
Vital Signs and I&O:
Vital Signs
Temp Pulse Resp BP Pulse Ox
97.6 F 61 17 127/63 94
01/25/24 07:52 01/25/24 07:52 01/25/24 05:45 01/25/24 07:52 01/25/24 10:15
I&O
01/24/24 01/25/24 01/26/24
06:59 06:59 06:59
Intake Total 1640 / 1640 780 / 780
Output Total 100 / 100 1115 / 1115
Balance 1540 / 1540 -335 / -335
Physical Exam
Physical Exam
GI: Soft, Non Distended and Non Tender
[2024-01-25 17:48] LABS: Glucose - Point of Care 365 mg/dl (70-99)
[2024-01-26] VITALS (15 sets, daily range): BP systolic 98–146; BP diastolic 44–84; PULSE 60–62; BMI 23.4
[2024-01-26 05:40] LABS: Hematocrit 27.1 % (37.0-47.0); Hemoglobin 8.5 g/dL (12.0-16.0); Mean Corp Hgb Conc. 31.4 g/dL (33.0-37.0); Mean Corpuscular Hgb 30.1 pg (27.0-31.0); Mean Corpuscular Volume 96.1 fL (81.0-99.0); Mean Platelet Volume 10.8 fL (7.4-10.4); Platelet Count 116 10^3/uL (130-400); Red Blood Cell Count 2.82 10^6/uL (4.20-5.40); Red Cell Dist. Width 19.8 % (11.5-14.5); White Blood Cell Count 10.5 10^3/uL (4.8-10.8)
[2024-01-26 05:51] LABS: Blood Urea Nitrogen 36 mg/dl (7-17); Calcium 7.7 mg/dl (8.4-10.2); Carbon Dioxide 24 mmol/L (22-30); Chloride 109 mmol/L (98-107); Estimated Creatinine Clearance 20 ml/min; Glucose 140 mg/dl (70-99); Magnesium 1.8 mg/dl (1.6-2.3); Potassium 4.7 mmol/L (3.5-5.1); Sodium 134 mmol/L (135-145); eGFR 43.54
[2024-01-26] MEDS: SYNTHROID 88 MCG PO (06:40)
--- NOTE | 2024-01-26 07:33 | W.PN.HOSP.TC ---
Today's Communication/Plan
-
see A/P
Assessment / Plan
Assessment / Plan
A/P:
# Acute hypotension requiring pressors
with fever and elevated WBC count, would consider septic shock as possible cause but source unclear. Does not appear to be bleeding (hemorrhagic shock) or cardiac (cardiogenic shock).
UA (not clean catch > 30 sq cells), urine culture pending, blood cultures negative, CXR without acute findings
cover with empiric Abx Ceftriaxone started 01/25 for 5 days
Weaned off levophed
# Epigastric abdominal pain
# Symptomatic anemia, acute blood loss on chronic anemia, suspect due to GIB
Hgb 6.0 on admission, transfused 2 units PRBC, Hgb improved to 9.7; today at 8.5
Ferritin 31, indicating iron deficient, start IV iron
Also low normal B12, cont repletion
cont PPI IV BID,
hold EAR FLAP BINDER Eliquis
GI on board, plan for EGD 01/26 for cautery of AVMs
# Nonischemic myocardial injury with elevated trop from GI bleed/critical illness
troponin peaked at 0.089
apprec cards input
# ALENA on CKD stage 3, ALENA due to prerenal with GIB
Creat 1.6 -> 1.2 today; baseline 1.1
# Persistent atrial fibrillation
# Status post AV node ablation 12/16/2023
# Status post [employer] DIRECTOR OF STUDENT AID-P 12/29/2020
# Chronic amiodarone therapy
# Nonischemic cardiomyopathy, ejection fraction 20-25 % by AUDI 12/11/2023
# Nonobstructive coronary artery disease by cardiac catheterization in August 2020
Apprec cards
Cont EAR FLAP BINDER Amio
holding Eliquis
# Essential Hypertension
hold all BP meds as pt on levophed for BP support
# History of right femoral artery dissection as a cardiac catheterization complication treated with femoral endarterectomy and patch angioplasty August 2020.
# History of right parietal ischemic stroke June 2020.
# Undiagnosed restless leg syndrome, possibly related to iron deficiency
Mag and K are WNL
added requip, can continue for now
suspect with IV iron repletion, leg twitching would improve
# Hyperlipidemia.
DVT ppx: SCD
Code status: full code
Anticipated Discharge: 24 - 48 hours
Subjective/Interval History
-
Date of Service: January 26, 2024
Objective Data
-
Labs:
Laboratory Results
01/26/24
05:17
WBC 10.5
Hgb 8.5 L
Hct 27.1 L
Plt Count 116 L D
Sodium 134 L
Potassium 4.7
Chloride 109 H
Carbon Dioxide 24
BUN 36 H
Creatinine 1.2 H
Glucose 140 H
Calcium 7.7 L
Vital Signs:
Vital Signs
Temp Pulse Resp BP Pulse Ox
36.4 C 64 19 118/61 99
01/26/24 07:20 01/26/24 05:30 01/26/24 05:30 01/26/24 04:00 01/26/24 05:30
I&O
01/25/24 01/26/24 01/27/24
06:59 06:59 06:59
Intake Total 780 / 780 680 / 680
Output Total 1115 / 1115 1000 / 1000
Balance -335 / -335 -320 / -320
Review of Systems
-
All other systems: Reviewed and negative
Physical Exam
-
General: Well Developed, Well Nourished, No Apparent Distress, Comfortable and Conversant
HEENT: Normocephalic, Atraumatic and Hearing Impaired
Respiratory: Clear to Auscultation and Non Labored Respirations; Negative Accessory Resp Muscle Use
Cardiac: Regular Rhythm and S1/S2; Negative Murmur
GI: Soft, Nontender, Nondistended and Normal Bowel Sounds
Musculoskeletal: No Clubbing, No Cyanosis and No Edema
Neuro: Awake
Psych: Calm and Intact Judgement/Insight
Data Reviewed
-
Labs: Labs Reviewed by me
[2024-01-26] MEDS: VITAMIN B-12 1000 MCG PO (08:20)
[2024-01-26] MEDS: NSS (PRESERVATIVE FREE) 10 ML IV ×2 (08:20→19:53)
[2024-01-26] MEDS: PACERONE 200 MG PO (08:20)
[2024-01-26] MEDS: PROTONIX IV 40 MG IV ×2 (08:21→19:53)
[2024-01-26] MEDS: ROCEPHIN 1000 MG IV (08:21)
[2024-01-26] MEDS: STERILE WATER FOR INJECTION 10 ML IV (08:21)
--- NOTE | 2024-01-26 09:39 | W.PN.UPDATE ---
Update Note
Progress Note Update
EGD done
Few small ectasias in gastric body, antrum and duodenal bulb. Cauterized w APC.
REC:
Resume diet
OK to resume eliquis
Told pt to reschedule her Sandostatin LAR (missed dose in December)
[2024-01-26] MEDS: LIDOCAINE 4% PATCH TOPICAL (11:29)
[2024-01-26] MEDS: FERRLECIT 110 MG IV (14:23)
--- NOTE | 2024-01-26 15:24 | W.PN.CARDCBS ---
Today's Communication / Plan
-
resume Toprol XL 100 mg po bid
eventual resume of Aldactone
Restart Eliquis per GI recommendations
Impression / Plan
-
PCP: Dr. Olga Curry
Chef Kitchen Manager: Dr. Harvey
Impression:
Presented with SOB
Acute blood loss anemia
Suspected GIB
Nonischemic myocardial injury
ALENA
Paroxysmal Afib/tach
s/p AV node ablation 12/16/23
s/p Medtronic METEOROLOGICAL TECHNICIAN-P 12/29/20
Nonischemic CM EF 20-25% by AUDI 12/11/23
Chronic LBBB
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
Chronic amiodarone therapy
Chronic Eliquis OAC - on hold currently w/ GIB
Chronic anemia
h/o GI bleeding/recurrent anemia presumed due to AV malformations
h/o right parietal ischemic stroke 06/2020
Hypertension
Hyperlipidemia
AUDI 12/11/23: HRH study, EF 20-25%
Plan:
Stable cardiology status
GI approved restart of Eliquis
Toprol and Aldactone were held on admission
Will resume Toprol
Volume status appears reasonable at present
HPI: Rica is an 88 year old female with PMH of paroxysmal atrial fibrillation, cardiomyopathy, nonobstructive CAD, anemia, HTN, HLD, and CVA who [facility] evaluation of chest pain and SOB in the AM while walking to the bathroom.
Symptoms resolved with rest, however given concern, she came to ER for further evaluation. Upon further questioning, patient admitted to dark stool for the past few weeks with loose stools over the past few days. On arrival to ER, she was noted to
have hemoglobin of 6.0. given concern for GIB, she was started on IV pantoprazole and admitted. 2 units PRBCs ordered. Cardiology consulted for evaluation as patient is on Eliquis for afib and had recent AV node ablation 12/16/2023. At this time,
patient reports she is chest pain free and denies any SOB at rest.
Progress Note - Chef Kitchen Manager
Subjective
Date of Service: January 26, 2024
No complaints
Objective
Labs:
01/26/24 05:17
01/26/24 05:17
Labs
Hgb 8.5 g/dL (12.0-16.0) L 01/26/24 05:17
Hct 27.1 % (37.0-47.0) L 01/26/24 05:17
Plt Count 116 10^3/uL (130-400) L D 01/26/24 05:17
PT 16.4 Sec (11.4-14.6) H 01/23/24 09:20
INR 1.34 01/23/24 09:20
Sodium 134 mmol/L (135-145) L 01/26/24 05:17
Potassium 4.7 mmol/L (3.5-5.1) 01/26/24 05:17
BUN 36 mg/dl (7-17) H 01/26/24 05:17
Creatinine 1.2 mg/dL (0.6-1.0) H 01/26/24 05:17
Glucose 140 mg/dl (70-99) H 01/26/24 05:17
Troponins
01/23/24 01/24/24 01/24/24
23:11 04:27 04:27
Troponin I 0.076 H* 0.089 H* Cancelled
01/24/24 01/24/24
13:19 20:55
Troponin I 0.072 H* 0.066 H*
Vital Signs and I&O:
Vital Signs
Temp Pulse Resp BP Pulse Ox
97.9 F 76 21 140/56 96
01/26/24 11:30 01/26/24 08:45 01/26/24 08:45 01/26/24 08:20 01/26/24 10:02
Vital Signs
Temp Pulse Resp BP Pulse Ox
97.9 F 76 21 140/56 96
01/26/24 11:30 01/26/24 08:45 01/26/24 08:45 01/26/24 08:20 01/26/24 10:02
Intake & Output
01/24/24 01/25/24 01/26/24 01/27/24
06:59 06:59 06:59 06:59
Intake Total 1640 / 1640 780 / 780 680 / 680
Output Total 100 / 100 1115 / 1115 1000 / 1000
Balance 1540 / 1540 -335 / -335 -320 / -320
Physical Exam
Physical Exam
General: Well developed, well nourished in NAD.
Neck: Supple, no JVD, HJR, carotids +2 B/L, no bruits bilaterally.
Heart: Non displaced PMI, RRR, no murmurs, No S3, S4, no rubs.
Lungs: Clear to auscultation bilaterally, no wheeze, rhonchi, rubs bilaterally,
normal expiratory phase.
Extremities: No clubbing, cyanosis or edema bilaterally.
Neuro: Grossly nonfocal, awake, alert and oriented x3.
--- NOTE | 2024-01-26 16:46 | PTCARENOTE ---
Recd pt this AM, pleasant cooperative. Went for Endoscopy and had AVMs quaterized. BP improved, less orhostatic symptoms upon return from EGD. Family requesting consult for palliative care upon annmarie GUERRA notified CM
[2024-01-26] MEDS: ELIQUIS 2.5 MG PO (19:53)
--- NOTE | 2024-01-26 21:32 | PTCARENOTE ---
Caring for pt overnight. pt aaox3, pleasant, denies pain. vpaced on monitor, remains on RA. no bleeding noted. no dizziness. took pills whole, no issues. Started her eliquis 2.5mg tonight. BA on, but pt rings appropriately. Refused SCDs. no other
issues at this time. will monitor.
[2024-01-27] VITALS (9 sets, daily range): BP systolic 106–151; BP diastolic 52–96; PULSE 63; BMI 22.9
[2024-01-27] MEDS: SYNTHROID 88 MCG PO (05:08)
[2024-01-27 05:37] LABS: Hematocrit 28.5 % (37.0-47.0); Hemoglobin 8.9 g/dL (12.0-16.0); Mean Corp Hgb Conc. 31.2 g/dL (33.0-37.0); Mean Corpuscular Hgb 30.3 pg (27.0-31.0); Mean Corpuscular Volume 96.9 fL (81.0-99.0); Mean Platelet Volume 11.2 fL (7.4-10.4); Platelet Count 137 10^3/uL (130-400); Red Blood Cell Count 2.94 10^6/uL (4.20-5.40); Red Cell Dist. Width 19.5 % (11.5-14.5); White Blood Cell Count 9.7 10^3/uL (4.8-10.8)
[2024-01-27 06:10] LABS: Blood Urea Nitrogen 27 mg/dl (7-17); Calcium 8.1 mg/dl (8.4-10.2); Carbon Dioxide 22 mmol/L (22-30); Chloride 107 mmol/L (98-107); Estimated Creatinine Clearance 24 ml/min; Glucose 197 mg/dl (70-99); Magnesium 1.8 mg/dl (1.6-2.3); Potassium 4.7 mmol/L (3.5-5.1); Sodium 137 mmol/L (135-145); eGFR 54.19
[2024-01-27] MEDS: PACERONE 200 MG PO (07:44)
[2024-01-27] MEDS: VITAMIN B-12 1000 MCG PO (07:45)
[2024-01-27] MEDS: ELIQUIS 2.5 MG PO (07:45)
[2024-01-27] MEDS: NSS (PRESERVATIVE FREE) 10 ML IV (07:45)
[2024-01-27] MEDS: PROTONIX IV 40 MG IV (07:46)
[2024-01-27] MEDS: STERILE WATER FOR INJECTION 10 ML IV (07:46)
[2024-01-27] MEDS: ROCEPHIN 1000 MG IV (07:46)
--- NOTE | 2024-01-27 08:16 | W.PN.HOSP.TC ---
Addendum entered and electronically signed by Joyce Read MD 01/28/24 16:23:
# Hyponatremia
# paroxysmal atrial fibrillation on Eliquis
Addendum entered and electronically signed by Joyce Read MD 01/27/24 15:01:
total DC time 40 min
Addendum entered and electronically signed by Joyce Read MD 01/27/24 08:53:
d/w GI, Ok to cont PPI daily (in place of BID)
Original Note:
Today's Communication/Plan
-
see A/P
Assessment / Plan
Assessment / Plan
A/P:
# Acute hypotension requiring pressors
with fever and elevated WBC count, would consider septic shock as possible cause but source unclear. Does not appear to be bleeding (hemorrhagic shock) or cardiac (cardiogenic shock).
UA (not clean catch > 30 sq cells), urine culture with Mixed ese hence probable contamination, blood cultures negative, CXR without acute findings
cover with empiric Abx Ceftriaxone started 01/25 for 5 days
Weaned off levophed
# Epigastric abdominal pain
# Symptomatic anemia, acute blood loss on chronic anemia, due to GIB from gastric ectasias
Hgb 6.0 on admission, transfused 2 units PRBC, Hgb improved to 9.7; today at 8.9
Ferritin 31, indicating iron deficient, started IV iron
Also low normal B12, cont repletion
cont PPI IV BID,
s/p EGD 01/25: noted few small ectasias in gastric body, antrum and duodenal bulb. Cauterized w APC.
OK to resume ASW SPECIALIST Eliquis per GI
ADAT
# Nonischemic myocardial injury with elevated trop from GI bleed/critical illness
troponin peaked at 0.089
apprec cards input
# ALENA on CKD stage 3, ALENA due to prerenal with GIB
Creat 1.6 -> 1.0 today; baseline 1.1
# Persistent atrial fibrillation
# Status post AV node ablation 12/16/2023
# Status post [employer]tronic SANFORIZING MACHINE OPERATOR-P 12/29/2020
# Chronic amiodarone therapy
# Nonischemic cardiomyopathy, ejection fraction 20-25 % by AUDI 12/11/2023
# Nonobstructive coronary artery disease by cardiac catheterization in August 2020
Cont ASW SPECIALIST Amio
OK to resume ASW SPECIALIST Eliquis per GI
ASW SPECIALIST Toprol XL and Aldactone remain on hold
Apprec cards
# Essential Hypertension
ASW SPECIALIST Toprol XL and Aldactone remain on hold
BP still low normal
# History of right femoral artery dissection as a cardiac catheterization complication treated with femoral endarterectomy and patch angioplasty August 2020.
# History of right parietal ischemic stroke June 2020.
# Undiagnosed restless leg syndrome, possibly related to iron deficiency
Mag and K are WNL
added requip, can continue for now
suspect with IV iron repletion, leg twitching would improve
# Hyperlipidemia.
DVT ppx: Eliquis
Code status: full code
DW CM
Anticipated Discharge: Within 24 hours
Subjective/Interval History
-
Date of Service: January 27, 2024
Objective Data
-
Labs:
Laboratory Results
01/27/24
05:20
WBC 9.7
Hgb 8.9 L
Hct 28.5 L
Plt Count 137
Sodium 137
Potassium 4.7
Chloride 107
Carbon Dioxide 22
BUN 27 H
Creatinine 1.0
Glucose 197 H
Calcium 8.1 L
Vital Signs:
Vital Signs
Temp Pulse Resp BP Pulse Ox
36.6 C 62 19 105/64 95
01/27/24 03:58 01/27/24 07:44 01/27/24 06:00 01/27/24 07:44 01/27/24 06:00
I&O
01/26/24 01/27/24 01/28/24
06:59 06:59 06:59
Intake Total 680 / 680 480 / 480
Output Total 1000 / 1000
Balance -320 / -320 480 / 480
Review of Systems
-
All other systems: Reviewed and negative
Physical Exam
-
General: Well Developed, Well Nourished, No Apparent Distress, Comfortable and Conversant
HEENT: Normocephalic, Atraumatic and Hearing Impaired
Respiratory: Clear to Auscultation and Non Labored Respirations; Negative Accessory Resp Muscle Use
Cardiac: Regular Rhythm and S1/S2; Negative Murmur
GI: Soft, Nontender, Nondistended and Normal Bowel Sounds
Musculoskeletal: No Clubbing, No Cyanosis and No Edema
Neuro: Awake
Psych: Calm and Intact Judgement/Insight
Data Reviewed
-
Labs: Labs Reviewed by me
--- NOTE | 2024-01-27 09:08 | W.PN.GI.CBS2 ---
Addendum entered and electronically signed by Fabian Galindo MD 01/27/24 13:34:
I saw and examined the patient.
The MACHINE SLAT BASKET MAKER or PA's note was reviewed and I agree with the note.
Comment: 88 yo F pmh A fib, Eliquis, pacemaker admitted with FOBT positive stool and anemia s/p EGD with Dr. Mccoy yesterday with AVMs.
Plan to follow up with Dr. Felipa Johnson and [facility].
I stressed to patient importance of continuing octreotide.
Continue Eliquis.
Patient being discharged as I saw her.
Original Note:
Today's Communication / Plan
-
As per plan
Assessment / Plan
-
88-year-old female with past medical history of atrial fibrillation currently on Eliquis last dose 5 AM this morning, CAD, permanent pacemaker, nonischemic cardiomyopathy, CVA, diabetes, hypothyroidism, multiple small bowel AVMs with last
cauterization in [address] Leo at [facility], [place] with need for prior IV infusions changed over to Procrit followed by [place] now on oral iron after being discharged to [facility] facility who presents to the emergency
room with chest pain. Found to have hemoglobin of 6.0. Baseline is roughly 11. Stool positive for occult blood and is dark. Patient has been off of her routine Procrit for approximately 1 to 2 months. Has a history of small bowel AVMs in the
past requiring multiple cauterizations roughly 2016. WBC 10.0, hemoglobin 6.0, hematocrit 19.9, platelet 221, PT 16.4, INR 1.3, sodium 131, potassium 4.5, BUN 34, creatinine 1.4 iron 59, TIBC 323, percent saturation 18, ferritin 31.4, B12 332,
folate 10.8, total bilirubin 0.6, AST 34, ALT 23, alk phos 91, troponin 0.041.
EGD ([facility]) 01/26/24
�� � - Normal esophagus.
�� � � � � � � � � � � - A few non-bleeding angioectasias in the stomach.
�� � � � � � � � � � � Treated with argon plasma coagulation (APC).
�� � � � � � � � � � � - A few non-bleeding angioectasias in the duodenum.
�� � � � � � � � � � � Treated with argon plasma coagulation (APC).
�� � � � � � � � � � � - No specimens collected.
Impression:
Severe anemia
Occult blood positive stools
History of small bowel AVMs. Treated with monthly Sandostatin LAR, missed dose in December due to AV node ablation hospitalization
Current gastric, duodenal bulb AVMs status post APC on 01/26/2024
Paroxysmal A-fib currently on anticoagulation, Eliquis last dose 315 am
Chest pain, elevated troponin 0.41-0.76-0.89
Nonischemic cardiomyopathy EF 20-25%
History of CAD
Plan:
-Continue PPI daily
-Follow-up with hematology as outpatient for Sandostatin (follows with [facility])
-Can follow-up with Dr. Leo
-Nothing further to add from a GI perspective. Will be available as needed or by request.
Subjective
Subjective
Date of Service: January 27, 2024
Patient without any current GI complaints. No bowel movement since yesterday. Tolerating solid diet without any difficulty. Hemoglobin stable at 8.9 up from 8.5 yesterday. She is status post EGD on 01/26/2024 that showed few small ectasias in
gastric body, antrum and duodenal bulb status post APC cauterization. Eliquis was resumed last evening. Patient to follow-up with hematology to resume her Sandostatin as an outpatient. Discussed with patient.
Objective
Data Reviewed
Laboratory Data:
Laboratory Results
01/27/24 05:20
01/27/24 05:20
Laboratory Results
PT 16.4 Sec (11.4-14.6) H 01/23/24 09:20
INR 1.34 01/23/24 09:20
Magnesium 1.8 mg/dl (1.6-2.3) 01/27/24 05:20
Total Bilirubin 0.6 mg/dl (0.2-1.3) 01/23/24 09:20
AST 34 U/L (14-36) 01/23/24 09:20
ALT 23 U/L (0-35) 01/23/24 09:20
Alkaline Phosphatase 91 U/L (38-126) 01/23/24 09:20
Vital Signs and I&O:
Vital Signs
Temp Pulse Resp BP Pulse Ox
97.9 F 62 19 105/64 95
01/27/24 03:58 01/27/24 07:44 01/27/24 06:00 01/27/24 07:44 01/27/24 06:00
I&O
01/26/24 01/27/24 01/28/24
06:59 06:59 06:59
Intake Total 680 / 680 480 / 480
Output Total 1000 / 1000
Balance -320 / -320 480 / 480
Physical Exam
Physical Exam
HEENT: Anicteric
Cardiology: Normal Sinus Rhythm
Pulmonary: Clear
GI: Soft, Non Distended, Non Tender and Normal Bowel Sounds
Neuro: Non Focal
--- NOTE | 2024-01-27 09:21 | W.PN.CARDCBS ---
Today's Communication / Plan
-
Continue Eliquis and amiodarone
Remains in underlying atrial flutter
Continue to hold Toprol with borderline blood pressure and occasional dizziness
Restart atorvastatin
Impression / Plan
-
PCP: Dr. Olga Curry
Elementary Instructional Coach: Dr. Harvey
Impression:
Presented with SOB
Acute blood loss anemia
Suspected GIB
Nonischemic myocardial injury
ALENA
Paroxysmal Afib/tach
s/p AV node ablation 12/16/23
s/p Medtronic LEAD PAINTER-P 12/29/20
Nonischemic CM EF 20-25% by AUDI 12/11/23
Chronic LBBB
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
Chronic amiodarone therapy
Chronic Eliquis OAC - on hold currently w/ GIB
Chronic anemia
h/o GI bleeding/recurrent anemia presumed due to AV malformations
h/o right parietal ischemic stroke 06/2020
Hypertension
Hyperlipidemia
AUDI 12/11/23: HRH study, EF 20-25%
Plan:
Eliquis has been resumed for no further bleeding. Hemoglobin at 8.9. Continue to follow.
Underlying rhythm remains atrial flutter. Would continue amiodarone. She was AV paced earlier this year.
Still with some mild dizziness at times. Will continue to hold on restarting Toprol.
Will ultimately need rehab.
Continue conservative therapy for coronary artery disease.
Would resume atorvastatin 40 mg daily. Continue Eliquis. Hopefully restart Toprol if blood pressure stable
HPI: Rica is an 88 year old female with PMH of paroxysmal atrial fibrillation, cardiomyopathy, nonobstructive CAD, anemia, HTN, HLD, and CVA who presented to [facility] for evaluation of chest pain and SOB in the AM while walking to the bathroom.
Symptoms resolved with rest, however given concern, she came to ER for further evaluation. Upon further questioning, patient admitted to dark stool for the past few weeks with loose stools over the past few days. On arrival to ER, she was noted to
have hemoglobin of 6.0. given concern for GIB, she was started on IV pantoprazole and admitted. 2 units PRBCs ordered. Cardiology consulted for evaluation as patient is on Eliquis for afib and had recent AV node ablation 12/16/2023. At this time,
patient reports she is chest pain free and denies any SOB at rest.
Progress Note - Elementary Instructional Coach
Subjective
Date of Service: January 27, 2024
Brief dizziness this morning. No clear bleeding
Objective
Labs:
01/27/24 05:20
01/27/24 05:20
Labs
Hgb 8.9 g/dL (12.0-16.0) L 01/27/24 05:20
Hct 28.5 % (37.0-47.0) L 01/27/24 05:20
Plt Count 137 10^3/uL (130-400) 01/27/24 05:20
PT 16.4 Sec (11.4-14.6) H 01/23/24 09:20
INR 1.34 01/23/24 09:20
Sodium 137 mmol/L (135-145) 01/27/24 05:20
Potassium 4.7 mmol/L (3.5-5.1) 01/27/24 05:20
BUN 27 mg/dl (7-17) H 01/27/24 05:20
Creatinine 1.0 mg/dL (0.6-1.0) 01/27/24 05:20
Glucose 197 mg/dl (70-99) H 01/27/24 05:20
Troponins
01/24/24 01/24/24
13:19 20:55
Troponin I 0.072 H* 0.066 H*
Vital Signs and I&O:
Vital Signs
Temp Pulse Resp BP Pulse Ox
97.9 F 62 19 105/64 95
01/27/24 03:58 01/27/24 07:44 01/27/24 06:00 01/27/24 07:44 01/27/24 06:00
Vital Signs
Temp Pulse Resp BP Pulse Ox
97.9 F 62 19 105/64 95
01/27/24 03:58 01/27/24 07:44 01/27/24 06:00 01/27/24 07:44 01/27/24 06:00
Intake & Output
01/25/24 01/26/24 01/27/24 01/28/24
06:59 06:59 06:59 06:59
Intake Total 780 / 780 680 / 680 480 / 480
Output Total 1115 / 1115 1000 / 1000
Balance -335 / -335 -320 / -320 480 / 480
Physical Exam
Physical Exam
GEN: No distress, awake, Ox3
HEENT: supple, anicteric, mmm
LUNGS: CTA, no wheezes/rales
CV: Reg, S1/S2, 1/6 syst LSB, no gallop
ABD: soft, BS+, NT/ND
EXT: No edema
NEURO: Gross non-focal
SKIN: No rash
[2024-01-27] MEDS: LIDOCAINE 4% PATCH 1 PATCH TOPICAL (09:38)
[2024-01-27] MEDS: NOVOLOG FLEXPEN-LOW RESISTANCE 3 UNITS SC (09:42)
[2024-01-27 09:50] LABS: Glucose - Point of Care 260 mg/dl (70-99)
[2024-01-27] MEDS: RETACRIT 40000 UNITS SC (11:29)
--- NOTE | 2024-01-27 11:45 | PN.CDI ---
CDI
- -
CDI:
Physician Documentation Request
Admit Date: 01/23/24 11:13
Dear Doctor Jacek,
Please review the following and provide your response in the progress notes.
Clinical Indicators:
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
Sodium levels are below/Did get IVFs
01/23/24 01/24/24 01/25/24
09:20 04:27 04:52
Sodium 131 L 134 L 133 L
01/26/24
05:17
Sodium 134 L
Based on the above, could you clarify in the progress notes, the appropriate diagnosis, if significant, that supports the above abnormalities and additional evaluation, monitoring and/or treatment rendered:
Hyponatremia
Abnormal lab value of clinical insignificance
Other
Use of terms such as suspected, likely, concern for, or probable (associated with a specific diagnosis that is being evaluated, monitored, or treated as if it exists) are acceptable and can be coded in the inpatient setting, when documented at the
time of discharge.
Thank you,
Delores Burks RN
CDI Specialist
[place] [facility]
Please use your independent medical judgment in providing your response.
--- NOTE | 2024-01-27 11:50 | PN.CDI ---
CDI
- -
CDI:
Physician Documentation Request
Admit Date: 01/23/24 11:13
Dear Doctor Jacek,
Please review the following and provide your response in the progress notes.
Clinical Indicators:
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
There is potentially conflicting documentation in the record regarding the type of afib.
Documented per cardiology notes, ' paroxysmal atrial fibrillation on Eliquis...'
Progress notes , ' Persistent atrial fibrillation...'
If possible, please provide further specificity regarding atrial fibrillation, such as:
Paroxysmal atrial fibrillation - terminates spontaneously or with intervention within 7 days of onset
Persistent atrial fibrillation - episodes of continuous AF that last more than 7 days and do not self-terminate
Other - please specify
Use of terms such as suspected, likely, concern for, or probable (associated with a specific diagnosis that is being evaluated, monitored, or treated as if it exists) are acceptable and can be coded in the inpatient setting, when documented at the
time of discharge.
Thank you,
Delores Burks RN
CDI Specialist
[place] [facility]
Please use your independent medical judgment in providing your response.
[2024-01-27] MEDS: NOVOLOG FLEXPEN-LOW RESISTANCE 4 UNITS SC (12:00)
--- NOTE | 2024-01-27 12:02 | CM ---
Addendum entered by Latricia Car RN 01/27/24 12:22:
clarification- Retacrit (epoetin west-epbx) given not Procrit.
Original Note:
Patient from [facility] with Dx acute blood loss anemia, suspected GI bleed s/p transfusions. Room air. Procrit SQ given today. PT & OT recommend skilled rehab.
Spoke with Yelitza, [facility]; they are able to accept the patient back today once the Procrit is given. They prefer that the patient arrive by 3pm so their MD can see the patient. for report [phone], fax [phone].
Met with patient, son Danie & NAMRATA Ortega, who is wound care nurse at [facility]. They agree with d/c today back to [facility] and son would like to transport the patient in his vehicle- informed him that the SNF would like the patient
to arrive by 3pm. IMM completed.
Jose/NAMRATA are requesting a referral to Palliative Care- referral placed. Informed them that Palliative Care will not see the patient while she is here in hospital or at SNF, but will contact once she goes home.
Plan [facility] today with son transporting.
[2024-01-27 12:11] LABS: Glucose - Point of Care 320 mg/dl (70-99)
--- NOTE | 2024-01-27 12:21 | PTCARENOTE ---
Per CM, pt ready for d.c. and bed available back at [facility]. Son will transport this afternoon. Attempted to call report to [phone] but no answer. Also awaitining d.c. order and instructions.
--- NOTE | 2024-01-27 12:42 | PTCARENOTE ---
Pt stable for d.c. order placed. Report given to Leonor GUERRA at [facility].
--- NOTE | 2024-01-27 14:51 | W.DCSUMMARY ---
Discharge Summary
Discharge Data
Date of Admission: 01/23/24
Date of Discharge: 01/27/24
-
Pending Results: No
Hospital Course
Principal Diagnosis:
Epigastric abdominal pain with symptomatic anemia/ acute blood loss anemia, due to gastrointestinal bleeding (GIB) from gastric ectasias
Acute kidney injury (ALENA) on chronic kidney disease stage 3; ALENA due to prerenal
Undiagnosed restless leg syndrome, possibly related to iron deficiency
Chronic Diagnoses:�
History of right femoral artery dissection as a cardiac catheterization complication treated with femoral endarterectomy and patch angioplasty August 2020.
History of right parietal ischemic stroke June 2020.
Hyperlipidemia.
Persistent atrial fibrillation
Status post AV node ablation 12/16/2023
Status post Medtronic PAVING PLANT OPERATOR-P 12/29/2020
Chronic amiodarone therapy
Nonischemic cardiomyopathy, ejection fraction 20-25 % by AUDI 12/11/2023
Nonobstructive coronary artery disease by cardiac catheterization in August 2020
Consultations:�
Cardiology
Gastroenterology
Procedures:�
EGD 01/25: noted few small ectasias in gastric body, antrum and duodenal bulb. Cauterized w APC.
Clinical course:�
This is a 88-year-old female, with past medical history as stated above, who presented with epigastric abdominal pain. She was noted to have low hemoglobin at 6.0 on admission.
Problem 1:
Epigastric abdominal pain with symptomatic anemia/ acute blood loss anemia, due to GIB from gastric ectasias.
The patient received 2 units PRBC transfusion, and her hemoglobin improved to 8.9 on the day of discharge.
She also received IV iron while in the hospital for iron deficiency, and she can continue with her prior to admission oral iron supplement following discharge.
Her vitamin B12 level was also noted to be low, and B12 supplement was started during her admission.
She underwent EGD 01/25: which noted few small ectasias in gastric body, antrum and duodenal bulb. Cauterized w APC.
Per GI, she can resume her prior to admission Eliquis, which was started while in the hospital and without significant drop in hemoglobin.
She can continue Protonix 40 mg daily per GI.
Problem 2:
Acute hypotension requiring pressor/Levophed, which was subsequently weaned off.
Given she had fever and had elevated WBC at that time, this was considered to be septic shock although source was unclear.
Infectious workup including urine culture (grew mixed ese hence probable contamination), blood cultures and CXR were unrevealing.
She received empiric antibiotic ceftriaxone while in the hospital for 2 days, and she was discharged with cefdinir for 3 more days.
Problem 3:
ALENA on CKD stage 3, ALENA due to prerenal with GIB.
Her creatinine down trended from 1.6 on admission to 1.0, which is at her baseline.
Problem 4:
Essential Hypertension.
Due to borderline blood pressure, her prior to admission Toprol and Aldactone remained on hold at the time of discharge.
She has been informed to follow-up with her radiotelephone operator for assessment of resumption of these medications outpatient.
As for the rest of her medical problems, they were stable during her hospital stay.
Discharge Plan
-
Patient Disposition: Residential/SNF
Discharge Diagnosis/Procedures: Epigastric abdominal pain with symptomatic anemia (due to GI bleed from gastric ectasias); Acute hypotension requiring pressor (unclear cause); Restless leg syndrome possibly related to iron deficiency from GI bleed
Condition: Fair
Diet: As tolerated
Activity: As tolerated
Driving Restrictions: Not until seen by your Dr
Blood Work: CBC in 1 week, result to PCP
Follow iron panel with your PCP
Referrals:
Lizandro Stevenson DO [Family Provider] - in less than 1 week
Benedicto Harvey MD [Active] - 01/30/24 2:00 pm (Please call with questions. )
Additional Discharge Medication Instructions: Hold Toprol XL and Aldactone (due to low blood pressure) until further directed by your PCP/radiotelephone operator.
Continue Protonix 40 mg daily.
Continue vitamin B12 supplement (deficiency can cayuse anemia too)
Continue cefdinir for 3 more days.
Prescriptions:
New
cyanocobalamin (vitamin B-12) 1,000 mcg Tablet
1,000 mcg PO DAILY Qty: 30 0RF
pantoprazole [Protonix] 40 mg tablet,delayed release (DR/EC)
40 mg PO DAILY Qty: 30 0RF
cefdinir 300 mg capsule
300 mg PO BID 3 Days Qty: 6 0RF
Continued
glipizide 10 MG tablet
5 mg PO BID
Procrit 40,000 UNIT/ML solution
40,000 unit SC UD
Rx Instructions:
hold 6 days, administer 1 day hold for 14 days
ferrous sulfate 325 mg (65 mg iron) Tablet
650 mg PO BID Qty: 0
Patient Comments:
65mg tablets, takes 2 tabs BID
atorvastatin 40 mg Tablet
40 mg PO HS
levothyroxine 88 mcg Tablet
88 mcg PO DAILY@0700
Eliquis 2.5 mg Tablet
2.5 mg PO BID
amiodarone 200 mg tablet
200 mg PO DAILY Qty: 30 11RF
acetaminophen [Tylenol] 325 mg Tablet
650 mg PO Q4HPRN PRN (Reason: mild pain)
lidocaine 4 % Adhesive Patch,Medicated
1 patch TOPICAL DAILY
trazodone 50 mg Tablet
25 mg PO Q8HPRN PRN (Reason: anxiety)
magnesium hydroxide [Milk of Magnesia] 400 mg/5 mL Suspension
2,400 mg PO HSPRN PRN (Reason: constipation)
bisacodyl [Dulcolax (bisacodyl)] 10 mg Suppository
10 mg ME [id number] PRN (Reason: if no bm aftr mom)
Held
spironolactone 25 MG tablet
12.5 mg PO DAILY
Hold Instructions: Resume on 02/04/24. until further directed by your PCP/Home Health Aide Caregiver
metoprolol tartrate [Lopressor] 100 mg Tablet
100 mg PO BID
Hold Instructions: Resume on 02/04/24. until further directed by your PCP/Home Health Aide Caregiver
Discharge Orders:
Discharge Patient (As Directed); Ordered 01/27/24
Ordered By: Joyce Read
Discharge Date and Time
Discharge Date/Time: 01/27/24 13:17
== END 2024-01-27 13:17 | DRG 377 ==
LOC: IMU 11:13
PROVIDERS: Emergency Medicine; Internal Medicine; Nurse Practitioner Family; ADMITTING PHYSICIAN Internal Medicine; CONSULT PHYSICIAN Specialist; EMERGENCY PHYSICIAN Emergency Medicine; FAMILY PHYSICIAN Student in an Organized Health Care Education/Training Program; OTHER PHYSICIAN Internal Medicine Cardiovascular Disease
PROC: 0W3P8ZZ Control Bleeding in Gastrointestinal Tract, Via Natural or Artificial Opening Endoscopic (ICD-10-PCS; 2024-01-23)
PROC: 30233N1 Transfusion of Nonautologous Red Blood Cells into Peripheral Vein, Percutaneous Approach (ICD-10-PCS; 2024-01-23)
DX: K31.811 Angiodysplasia of stomach and duodenum with bleeding (principal); A41.9 Sepsis, unspecified organism; R65.21 Severe sepsis with septic shock; D62 Acute posthemorrhagic anemia; N17.9 Acute kidney failure, unspecified; I13.0 Hypertensive heart and chronic kidney disease with heart failure and stage 1 through stage 4 chronic kidney disease, or unspecified chronic kidney disease; I48.19 Other persistent atrial fibrillation; I42.8 Other cardiomyopathies; I5A Non-ischemic myocardial injury (non-traumatic); E87.1 Hypo-osmolality and hyponatremia; K55.21 Angiodysplasia of colon with hemorrhage; N18.30 Chronic kidney disease, stage 3 unspecified; E11.22 Type 2 diabetes mellitus with diabetic chronic kidney disease; Z79.01 Long term (current) use of anticoagulants; E78.00 Pure hypercholesterolemia, unspecified; I25.10 Atherosclerotic heart disease of native coronary artery without angina pectoris; G25.81 Restless legs syndrome
CPT/HCPCS: 71046; 80048; 80053; 81003; 81015; 82607; 82728; 82746; 82962; 83540; 83550; 83735; 84484; 85014; 85018; 85025; 85027; 85610; 86850; 86900; 86901; 86920; 87040; 87070; 87086; 93005; 94760; 96374; 97116; 97163; 97167; 97535; 99285; J2916; P9016; Q5106

== ENCOUNTER → 2024-02-02 09:27 | Outpatient (REF) | payer OTHER, MEDICARE, SELFPAY ==
[2024-02-02 10:35] LABS: % Basophils 0.5 % (0-2); % Immature Granulocytes 2.8 % (0-0.5); % Lymphocytes 12.1 % (20.5-51.1); % Monocytes 8.3 % (1.7-9.3); % Neutrophils 74.3 % (42.2-75.2); Absolute Eosinophils 0.1 10^3/uL (0-0.7); Absolute Immature Granulocytes 0.2 10^3/uL (0-0.05); Absolute Lymphocytes 0.7 10^3/uL (1.2-3.4); Absolute Monocytes 0.5 10^3/uL (0.1-0.6); Absolute Neutrophils 4.2 10^3/uL (1.4-6.5); Hematocrit 23.9 % (37.0-47.0); Hemoglobin 7.2 g/dL (12.0-16.0); Mean Corp Hgb Conc. 30.1 g/dL (33.0-37.0); Mean Corpuscular Hgb 31.7 pg (27.0-31.0); Mean Corpuscular Volume 105.3 fL (81.0-99.0); Mean Platelet Volume 11.6 fL (7.4-10.4); Nucleated Red Blood Cells % 1.1 %; Platelet Count 200 10^3/uL (130-400); Red Blood Cell Count 2.27 10^6/uL (4.20-5.40); Red Cell Dist. Width 22.5 % (11.5-14.5); White Blood Cell Count 5.6 10^3/uL (4.8-10.8)
[2024-02-02 10:44] LABS: ALT (SGPT) 17 U/L (0-35); AST (SGOT) 21 U/L (14-36); Albumin 2.6 g/dl (3.5-5.0); Alkaline Phosphatase 99 U/L (38-126); Blood Urea Nitrogen 36 mg/dl (7-17); Calcium 8.5 mg/dl (8.4-10.2); Carbon Dioxide 27 mmol/L (22-30); Chloride 100 mmol/L (98-107); Glucose 190 mg/dl (70-99); Magnesium 1.9 mg/dl (1.6-2.3); Potassium 4.4 mmol/L (3.5-5.1); Sodium 133 mmol/L (135-145); Total Bilirubin 0.6 mg/dl (0.2-1.3); Total Protein 4.7 g/dl (6.3-8.2); eGFR 39.55
[2024-02-02 12:17] LABS: Normal RBC Morphology No
[2024-02-02 12:18] LABS: Anisocytosis 1+; Hypochromasia 1+; Poikilocytosis Slight; Polychromasia 1+
== END ==
LOC: OLABN 09:27
PROVIDERS: ATTENDING PHYSICIAN Student in an Organized Health Care Education/Training Program
DX: E03.9 Hypothyroidism, unspecified (principal); I48.91 Unspecified atrial fibrillation; D68.59 Other primary thrombophilia
CPT/HCPCS: 36415; 80053; 83735; 84443; 85025

== ENCOUNTER 2024-02-04 16:42 | Inpatient (IN) | payer MEDICARE, SELFPAY ==
[2024-02-04] VITALS (9 sets, daily range): BP systolic 110–137; BP diastolic 50–83; BMI 22.6
[2024-02-04 12:55] LABS: % Basophils 0.6 % (0-2); % Eosinophils 1.3 % (0-6); % Immature Granulocytes 1.4 % (0-0.5); % Lymphocytes 9.3 % (20.5-51.1); % Monocytes 5.6 % (1.7-9.3); % Neutrophils 81.8 % (42.2-75.2); Absolute Basophils 0.1 10^3/uL (0-0.2); Absolute Eosinophils 0.1 10^3/uL (0-0.7); Absolute Immature Granulocytes 0.1 10^3/uL (0-0.05); Absolute Lymphocytes 0.7 10^3/uL (1.2-3.4); Absolute Monocytes 0.4 10^3/uL (0.1-0.6); Absolute Neutrophils 6.4 10^3/uL (1.4-6.5); Hematocrit 27.8 % (37.0-47.0); Mean Corp Hgb Conc. 30.9 g/dL (33.0-37.0); Mean Corpuscular Hgb 32.6 pg (27.0-31.0); Mean Corpuscular Volume 105.3 fL (81.0-99.0); Mean Platelet Volume 10.8 fL (7.4-10.4); Nucleated Red Blood Cells % 0.3 %; Platelet Count 268 10^3/uL (130-400); Red Blood Cell Count 2.64 10^6/uL (4.20-5.40); Red Cell Dist. Width 23.7 % (11.5-14.5); White Blood Cell Count 7.9 10^3/uL (4.8-10.8)
[2024-02-04 13:00] LABS: INR 1.18
[2024-02-04 13:01] LABS: APTT 25.4 Sec (23.4-35.0); Hemoglobin 8.6 g/dL (12.0-16.0)
--- NOTE | 2024-02-04 13:10 | ED.GENMED ---
History of Present Illness
General
Chief Complaint: Abnormal Lab Value
Source: patient, records and ambulance crew
Exam Limitations: none
Time Seen by Provider: 02/04/24 12:49
Nursing documentation reviewed up to this point in time: agreed with
Travel History
Have you had any contact with someone who has COVID-19?: No
Do you have any symptoms of coronavirus? Fever > 100 degrees, chills, cough, shortness of breath, sore throat, loss of taste or smell, muscle aches, or headache?: No
History of Present Illness
History of Present Illness:
88-year-old female presents emergency department complaining of hemoglobin of 6.9. 2 days ago was 7.2. She reports feeling weak, lightheaded and short of breath. She was on Eliquis, but stopped due to bleeding AVMs in her esophagus.
Past History
Past History
ED Past Medical History: Arrthythmia (afib, aflutter), CAD and Other (kidney stones)
ED Past Surgical History: Cardiac (pacemaker), Gynecological (hysterectomy) and Orthopedic (right knee replacement, carpal tunnel bilateral)
Social History
Tobacco: Non-smoker
Alcohol: None
Drug: None
Living: [facility]
Review of Systems
Review of Systems
Allergies reviewed?: Yes
All Other Systems: Not applicable
Constitutional: Reports no symptoms
EENT: Reports no symptoms
Respiratory: Reports trouble breathing
Cardiac: Reports no symptoms
ABD/GI: Reports no symptoms
: Reports no symptoms
Musculoskeletal: Reports no symptoms
Skin: Reports no symptoms
Neurological: Reports no symptoms
Endocrine: Reports no symptoms
Hematologic/Lymphatic: Reports no symptoms
Psychiatric: Reports no symptoms
Phy Exam
Physical Exam
Physical Exam:
Physical Exam
General: no apparent distress, afebrile
Neck: supple. no meningeal signs. normal posterior pharynx
Heart: s1/s2 regular rate and rhythm, no murmur. equal radial
pulses.
HEENT: Pupils equal round reactive to light, EOMI
Lungs: no acute respiratory distress. clear bilaterally
Abdomen: normal bowel sounds. not tender. no CVAT
Neuro: alert and oriented. no focal neurological deficits cranial nerves II through XII intact
Skin: no rash
Psychiatric: well kept. interactive and cooperative
Extremities: no edema. no calf tenderness. negative homans. good distal pulses
Scores
Heart Failure Risk
Heart Failure Risk Score: Yes
History of Stroke or TIA: Yes
History of intubation for respiratory distress: No
Heart rate on ED arrival >/= 110: No
SaO2 <90% on arrival on room air: No
HR >/=110 during 3min walk test (or too ill to perform test): No
ECG has acute ischemic changes: No
Urea >/=12mmol/L (BUN 33.6mg/dL): No
Serum CO2>/=35mmol/L: No
Troponin I or T elevated to DE Level (0.4mg/dL): No
NT-proBNP >/=5,000ng/L (5,000pg/ml): No
HF Risk Score: 1
Admission Status: MEDIUM RISK 5.1% Consider observation or discharge to home with homecare & f/u visit to PCP/Screwdown Operator, or SNF for treatment
Course
Orders/Labs/Results
Orders:
Orders
02/04/24 Breakfast
Cholesterol Lowering
At Your Request: Limited Participation
Does patient need a safe tray?: No
Cholesterol Lowering: Sodium, 2 Gram
1800 emerson/15 CHO Diabetic
02/04/24 12:37
Electrocardiogram (*1) Urgent
Reason for Study: Chest Pain
EKG- Treatment ONCE
02/04/24 12:38
Complete Blood Count/With Diff Urgent
PTT Urgent
Prothrombin Time Urgent
02/04/24 13:09
Electrocardiogram (*1) Urgent
Reason for Study: Fatigue / Weakness
EKG- Treatment ONCE
02/04/24 13:10
CR Chest - 2 Views Urgent
Comment:
Reason For Exam: short of breath
02/04/24 13:57
Comprehensive Metabolic Panel Urgent
NT-proBNP Urgent
Comment: ADD ON
Troponin I Urgent
02/04/24 14:40
Add On- LAB Urgent
Tests Added?: pro-bnp
02/04/24 15:32
Furosemide [Lasix] 40 mg PO NOW STA
02/04/24 16:04
Furosemide [Lasix] 40 mg IV NOW STA
02/04/24 16:07
CARDIOLOGY CONSULT Routine
Consulting Provider: Jaime Gay
Was physician already notified: Yes
02/04/24 16:08
Admit/Transfer Patient As Directed
Co-Sign Provider:
Level of Care: Inpatient admission
Assign to:: Telemetry
Physician / Group: tarun torres
Diagnosis: CHF exacerbation
Reason for Telemetry: Arrhythmia
Date to Stop Telemetry: 02/07/24
Time to Stop Telemetry: 11:00
Reason for Hospitalization: CHF exacerbation
Expected length of stay greater than two midnights?: Yes
ELOS- Estimated Length of Stay in days: 3
I certify the patient meets the requirements for IP care: Yes
02/04/24 16:11
Code Status As Directed
Resuscitation Status: Do not resuscitate
Reached after discussion with pt or family/Healthcare POA: Yes
DNR Bracelet Application ONCE
02/04/24 16:[address] Non Medication Order As Directed
Physician Order: NOTIFY MD WHEN MED REC DONE
02/04/24 16:30
Dextrose 50%-Water [Dextrose 50% Syringe] 12.5 grams IV [id number] PRN
Glucagon [GlucaGen] 1 mg IM PRN PRN
Bedside Glucose Monitoring As Directed
Frequency: AC&HS
Comment: Change to q6h if pt on TPN, tube feeding or not eating
02/04/24 16:42
Ot Eval And Treat Routine
Pt Eval And Treat Routine
Activity Level: As Tolerated
02/04/24 17:00
Insulin Aspart Corrective Low [Novolog Flexpen-Low Resistance] See Protocol SC AC
02/04/24 18:16
Acetaminophen [Tylenol] 650 mg PO Q4HPRN PRN
Bisacodyl [Dulcolax] 10 mg RECTAL [id number] PRN
Magnesium Hydroxide [Milk of Magnesia] 30 ml PO HSPRN PRN
Trazodone [Desyrel] 25 mg PO Q8HPRN PRN
02/04/24 18:16
Activity As Directed
Activity Level: As Tolerated
Intake/ Output As Directed
Frequency: Per unit guidelines
Vital Signs As Directed
Frequency: Per unit guidelines
Weight As Directed
Frequency: Daily
Pulse Ox/spot Check [RESP] Routine
Quantity: 1
DX Deep Vein Thrombosis Video Routine
02/04/24 18:36
Troponin I Q6H
02/04/24 20:00
GlipiZIDE [Glucotrol] 5 mg PO BID@0800,1700
Heparin 5,000 units SC Q12
02/04/24 21:00
H&H Routine
02/04/24 22:00
Atorvastatin [Lipitor] 40 mg PO HS
Trazodone [Desyrel] 25 mg PO HS
02/05/24 00:16
Troponin I Q6H
02/05/24 06:00
Basic Metabolic Panel IN AM
Complete Blood Count/With Diff IN AM
02/05/24 06:16
Troponin I Q6H
02/05/24 07:00
Levothyroxine [Synthroid] 100 mcg PO DAILY@0700
02/05/24 08:00
Cyanocobalamin [Vitamin B-12] 1,000 mcg PO DAILY
Furosemide [Lasix] 40 mg IV DAILY
Lidocaine [Lidocaine 4% Patch] 1 patch TOPICAL DAILY
Pantoprazole [Protonix] 40 mg PO DAILY
02/06/24 06:00
Basic Metabolic Panel IN AM
Complete Blood Count/With Diff IN AM
02/07/24 06:00
Basic Metabolic Panel IN AM
Complete Blood Count/With Diff IN AM
02/07/24 11:00
DC Protocol for Telemetry ONCE
02/08/24 06:00
Basic Metabolic Panel IN AM
Complete Blood Count/With Diff IN AM
02/09/24 06:00
Basic Metabolic Panel IN AM
Complete Blood Count/With Diff IN AM
02/10/24 06:00
Basic Metabolic Panel IN AM
Complete Blood Count/With Diff IN AM
02/11/24 06:00
Basic Metabolic Panel IN AM
Complete Blood Count/With Diff IN AM
Abnormal Lab Results
02/04/24 02/04/24
12:38 13:57
RBC 2.64 L 10^6/uL
(4.20-5.40)
Hgb 8.6 L D g/dL
(12.0-16.0)
Hct 27.8 L %
(37.0-47.0)
MCV 105.3 H fL
(81.0-99.0)
MCH 32.6 H pg
(27.0-31.0)
MCHC 30.9 L g/dL
(33.0-37.0)
RDW 23.7 H %
(11.5-14.5)
MPV 10.8 H fL
(7.4-10.4)
Abs Immat Gran (auto) 0.1 H 10^3/uL
(0-0.05)
Absolute Lymphs (auto) 0.7 L 10^3/uL
(1.2-3.4)
Immature Gran % 1.4 H %
(0-0.5)
Neutrophils % 81.8 H %
(42.2-75.2)
Lymphocytes % 9.3 L %
(20.5-51.1)
PT 15.0 H Sec
(11.4-14.6)
Sodium 133 L mmol/L
(135-145)
BUN 28 H mg/dl
(7-17)
Glucose 201 H mg/dl
(70-99)
Total Protein 5.2 L g/dl
(6.3-8.2)
Albumin 2.9 L g/dl
(3.5-5.0)
02/04/24 12:38
02/04/24 13:57
Vital Signs
Initial and Last Documented VS:
Initial Vital Signs
Temp Pulse Resp BP Pulse Ox
98.6 F 84 20 110/83 100
02/04/24 12:33 02/04/24 12:33 02/04/24 12:33 02/04/24 12:33 02/04/24 12:33
Last Documented Vital Signs
Temp Pulse Resp BP Pulse Ox
97.8 F 69 18 125/57 94
02/04/24 18:15 02/04/24 18:15 02/04/24 18:15 02/04/24 18:15 02/04/24 18:15
MDM/Problems Addressed
Differential Diagnosis Includes:
CHF, pneumonia, GI bleed
MDM/Problems Addressed:
88-year-old female with CHF exacerbation. Anemia improved without transfusion. Admit to hospitalist. Lasix given.
*Radiology
Radiology exam reviewed: radiology read reviewed
*Pulse Oximetry
Patient hypoxic: no
*EKG
Interpreted by ED Provider?: Yes
EKG Intrepretation Date: 02/04/24
EKG Intrepretation Time: 12:40
Interpretation: abnormal
Comparison EKG: changes noted
Heart Rate: 64
Rate: normal
Rhythm: ventricular paced
[place]: normal axis
Interval: normal interval
QRS Pattern: left bundle branch block
Ischemia: no ischemia
*Billiard Parlor Manager Interpretation
Rate: normal
Interpretation: abnormal
Heart Rate: 64
Rhythm: ventricular paced
*Critical Care Note
Total Time (30-74mins, 75-104mins- exclusive of procedures): Not Applicable
Data Reviewed
Further Testing Considered But Not Given:
CT chest not indicated
Patient Management
Social determinants of health affecting care: Strong social support
Discussion with other providers: Hospitalist
Escalation/DeEscalation of care consider admission/obs:
Admit not indicated
ED Attending Note
-
Portions of this chart may have been created with voice recognition software.� Occasional wrong word or��sound alike� substitutions may have occurred due to the inherent limitations of voice recognition software.
Discharge Plan
Departure
Patient Disposition: Admit
Date of Disposition: 02/04/24
Time of Disposition: 15:16
Admit to: Telemetry
Presentation/result/management discussed w/ accepting MD/DO: Hospitalist
Patient with high blood pressure during this ER visit?: No
Condition: Fair
Discharge Problem:
Acute exacerbation of CHF (congestive heart failure)
Interventions
Interventions:
*Risk Screen - Suicide Last Done: 02/04/24 12:33
*General Assessment Last Done: 02/04/24 12:33
*Neglect/Abuse Screening Last Done: 02/04/24 12:33
*ED COVID-19 Vaccine History Last Done: 02/04/24 17:44
*Nursing Disposition Last Done: 02/04/24 18:08
Discharge Date and Time
Discharge Date/Time: 02/04/24 18:09
[2024-02-04 13:15] LABS: Anisocytosis 1+; Hypochromasia 1+; Normal RBC Morphology No; Polychromasia 1+
[2024-02-04 13:16] LABS: Acanthocytes 1+; Ovalocytes 1+; Tear Drop Red Blood Cells FEW
[2024-02-04 14:17] LABS: ALT (SGPT) 20 U/L (0-35); AST (SGOT) 30 U/L (14-36); Albumin 2.9 g/dl (3.5-5.0); Alkaline Phosphatase 84 U/L (38-126); Blood Urea Nitrogen 28 mg/dl (7-17); Calcium 8.7 mg/dl (8.4-10.2); Carbon Dioxide 26 mmol/L (22-30); Chloride 107 mmol/L (98-107); Estimated Creatinine Clearance 24 ml/min; Glucose 201 mg/dl (70-99); Potassium 4.8 mmol/L (3.5-5.1); Sodium 133 mmol/L (135-145); Total Bilirubin 0.6 mg/dl (0.2-1.3); Total Protein 5.2 g/dl (6.3-8.2); eGFR 54.19
[2024-02-04 14:28] LABS: Troponin I 0.032 ng/ml
[2024-02-04 15:10] LABS: NT-proBNP 3670 pg/ml
[2024-02-04] MEDS: LASIX 40 MG IV (16:08)
--- NOTE | 2024-02-04 16:13 | CON.CAR ---
Addendum entered and electronically signed by Jaime Gay DO 02/04/24 17:03:
I saw and examined the patient.
The Blowing Weasand's note was reviewed and I agree with the note.
Comment:
Plan:
EF 20 to 25% by AUDI at [facility] December 2023. proBNP elevated and chest x-ray with evidence of pulmonary edema. She was not on Lasix prior to admission. She was given IV Lasix 40 mg in the emergency room and is diuresing. Continue IV Lasix diuresis.
She will likely be discharged on diuretic therapy when she is ready for discharge.
She had been off Toprol and spironolactone recently and was just asked to resume at recent office visit with Dr. Sanders January 30, 2024.
Hemoglobin currently stable at 8.6 with ongoing anemia. She has a history of GI bleed and AVMs. She had been back on Eliquis which is now on hold again. She does have a history of atrial fibrillation and CVA. She is being considered for watchman
evaluation as an outpatient.
Monitor H/H closely.
HPI: Patient came to [facility] from [facility] today with abnormal lab work concerning for anemia and is now being admitted for acute HFrEF resulting in cardiology consult. Patient was just admitted to 01/23/24 until 01/27/24 with anemia in the setting of
GIB. Pateint was transfused with 2 units PRBCs that admission and EGD showed a few small ectasias that were cauterized with APC therefore she was felt to be stable to resume Eliquis at 2.5 mg BID prior to discharge. Patient has a h/o GIB, but has
remained on OAC due to h/o persistent atrial arrhythmia and CVA as well. Patient was also recently at 12/16/23 to 12/17/23 after being transferred from [facility] for an AV node ablation. Her EF was down to 20-25% by cath at [facility] at that time, but no
evidence of acute HF and patient was not on a daily diuretic. Patient now c/o SOB and pro-BNP is 3670. Patient was given Lasix 40 mg IV x1 in [facility].
Original Note:
Consultation
Consultation Request
Date/Time Consultation Performed: 02/04/24
Requesting Provider: Dr. Herring
Performing Provider: Alaina Sandy PA-C for Dr. Gay
Reason for Consultation: CHF
Medical History
-
Chief Complaint: weakness, SOB
History of Present Illness:
Patient came to [facility] from [facility] today with abnormal lab work concerning for anemia and is now being admitted for acute HFrEF resulting in cardiology consult. Patient was just admitted to 01/23/24 until 01/27/24 with anemia in the setting of GIB and
discharged to [facility] (normally lives at home with her ). Patient was transfused with 2 units PRBCs that admission and EGD showed a few small ectasias that were cauterized with APC therefore she was felt to be stable to resume Eliquis at 2.5 mg
BID prior to discharge. Patient has a h/o GIB, but has remained on OAC due to h/o persistent atrial arrhythmia and CVA as well. Patient was also recently at 12/16/23 to 12/17/23 after being transferred from [facility] for an AV node ablation. Her EF was
down to 20-25% by cath at [facility] at that time, but no evidence of acute HF and patient was not on a daily diuretic. Patient now c/o SOB and pro-BNP is 3670. Patient was given Lasix 40 mg IV x1 in [facility].
PMH:
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
Paroxysmal Afib/tach/flutter
Chronic amiodarone therapy, stopped 01/30/24
Chronic Eliquis OAC
s/p AV node ablation 12/16/23
s/p Medtronic FOOD BEVERAGE MANAGER-P 12/29/20
Nonischemic CM EF 20-25% by AUDI 12/11/23
Chronic LBBB
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
Chronic anemia
h/o GI bleeding/recurrent anemia presumed due to AV malformations
h/o right parietal ischemic stroke 06/2020
Hypertension
Hyperlipidemia
Past Medical History
Past Medical History: Other (in HPI)
Past Surgical History: Cardiac (Medtronic FOOD BEVERAGE MANAGER-P 12/2020), Orthopedic and Other (femoral endarterectomy 08/2009)
Social History
Tobacco: Non-Smoker
Alcohol: None
Drug: None
Living: Other (living at [facility] since 12/2023 discharge, her daughter in law works there)
Family History
Family History: CAD and Other (CVA)
Allergies / Home Medications
Allergy/AdvReac Type Severity Reaction Status Date / Time
acetaminophen [From Percocet] Allergy Unknown Verified 02/04/24 12:33
diazepam [From Valium] Allergy Unknown Verified 02/04/24 12:33
lisinopril Allergy Unknown Verified 02/04/24 12:33
oxycodone [From Percocet] Allergy Unknown Verified 02/04/24 12:33
Penicillins Allergy Anaphylaxis Verified 02/04/24 12:33
�Medication �Instructions �Recorded �Confirmed �Type
ferrous sulfate 325 mg (65 mg 650 mg PO BID Supplement ##0 12/29/20 02/04/24 History
iron) tablet
glipizide 10 mg tablet 5 mg PO BID Diabetes 12/29/20 02/04/24 History
spironolactone 25 mg tablet 12.5 mg PO DAILY Heart Failure 12/29/20 02/04/24 History
apixaban 2.5 mg tablet (Eliquis) 2.5 mg PO BID Blood Clot 12/16/23 02/04/24 History
Prevention/Tx
atorvastatin 40 mg tablet 40 mg PO HS High Cholesterol 12/16/23 02/04/24 History
acetaminophen 325 mg tablet 650 mg PO Q4HPRN PRN mild pain 01/23/24 02/04/24 History
(Tylenol)
bisacodyl 10 mg rectal suppository 10 mg GA [id number] PRN if no bm aftr 01/23/24 02/04/24 History
(Dulcolax (bisacodyl)) mom
lidocaine 4 % topical patch 1 patch topical DAILY right 01/23/24 02/04/24 History
shoulder pain
magnesium hydroxide 400 mg/5 mL 2,400 mg PO HSPRN PRN constipation 01/23/24 02/04/24 History
oral suspension (Milk of Magnesia)
metoprolol tartrate 100 mg tablet 100 mg PO BID Blood Pressure 01/23/24 02/04/24 History
(Lopressor)
trazodone 50 mg tablet 25 mg PO HS 01/23/24 02/04/24 History
cyanocobalamin (vitamin B-12) 1,000 mcg PO DAILY #30 tabs 01/27/24 02/04/24 Rx
1,000 mcg tablet
pantoprazole 40 mg tablet,delayed 40 mg PO DAILY #30 tabs 01/27/24 02/04/24 Rx
release (Protonix)
epoetin west 40,000 unit/mL 20,000 unit SC Q2W 02/04/24 02/04/24 History
injection solution
levothyroxine 100 mcg tablet 100 mcg PO DAILY 02/04/24 02/04/24 History
(Synthroid)
trazodone 50 mg tablet 25 mg PO Q8HPRN PRN anxiety 02/04/24 02/04/24 History
Review of Systems
-
History Source: Patient
All other systems: Negative unless noted
Physical Exam
Vital Signs
Temp Pulse Resp BP Pulse Ox
98.6 F 84 20 110/83 100
02/04/24 12:33 02/04/24 12:33 02/04/24 12:33 02/04/24 12:33 02/04/24 12:33
Lab Results
02/04/24 12:38
02/04/24 13:57
Troponin I 0.032 ng/ml 02/04/24 13:57
Xfr-D-Qlrgwfuwugu Pept 3670 pg/ml 02/04/24 13:57
Physical Exam
General: No Apparent Distress, Comfortable and Other (pale)
HEENT: Normocephalic, Anicteric and Moist Mucous Membranes
Respiratory: Clear (anterolaterally) and Non Labored Respirations
Cardiac: S1/S2 and Regular Rhythm
GI: Soft, Non Tender, Non Distended and Normal Bowel Sounds
Musculoskeletal: No Clubbing, No Cyanosis and Edema (1+ edema of B/L LE)
Skin: Warm and Dry
Neuro: AO x 3
Impression / Plan
-
PCP: Dr. Olga Curry
Energy Systems Engineer: Dr. Harvey
Impression:
Multifactorial SOB
Acute on chronic HFrEF
Acute on chronic anemia, improving from last admission
Recent admission for acute blood loss anemia, GIB 01/22- 01/27/24
h/o GI bleeding/recurrent anemia presumed due to AV malformations
Nonischemic CM EF 20-25% by AUDI 12/11/23
Paroxysmal Afib/tach/aflutter
Chronic amiodarone therapy, stopped by Dr. Harvey 01/30/24
Chronic Eliquis OAC
s/p AV node ablation 12/16/23
s/p Medtronic FOOD BEVERAGE MANAGER-P 12/29/20
Chronic LBBB
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
h/o right parietal ischemic stroke 06/2020
Hypertension
Hyperlipidemia
AUDI 12/11/23: HRH study, EF 20-25%
Plan:
-Patient came to [facility] from [facility] today with abnormal lab work concerning for anemia and is now being admitted for acute HFrEF resulting in cardiology consult. Patient was just admitted to 01/23/24 until 01/27/24 with anemia in the setting of GIB.
Pateint was transfused with 2 units PRBCs that admission and EGD showed a few small ectasias that were cauterized with APC therefore she was felt to be stable to resume Eliquis at 2.5 mg BID prior to discharge. Patient has a h/o GIB, but has
remained on OAC due to h/o persistent atrial arrhythmia and CVA as well. Patient was also recently at 12/16/23 to 12/17/23 after being transferred from [facility] for an AV node ablation. Her EF was down to 20-25% by cath at [facility] at that time, but no
evidence of acute HF and patient was not on a daily diuretic. Patient now c/o SOB and pro-BNP is 3670. Patient was given Lasix 40 mg IV x1 in [facility].
-Hgb was 7.2 on 02/02/24 and then 6.9 in the ER at 0500 this AM. No record of transfusion, but Hgb now up to 8.6 on recheck at 1238.
-h/o GIB and AVMs, but following APC of ectasias last admission patient was cleared to resume Eliquis 2.5mg BID due to h/o persistent Afib/tach and CVA. eliquis now on hold again with variable hgb
-EF 20-25% by AUDI at [facility] 12/11/23. ProBNP elevated and CXR with evidence of mild pulm edema. Patient was not taking a daily diuretic prior to admission. Given Lasix 40 mg IV x1 in ER. Continue diuresis with IV lasix 40mg daily. will need daily
diuretic upon DC
-At cardiology discharge 12/17/23 patient was ordered spironolactone 12.5 mg daily and Toprol XL 100 mg BID for GDMT. Then when patient readmitted 01/23/24 she was changed to Lopressor and on day of d/c 01/27/24 the spironolactone and Lopressor were
both held for hypotension. Then patient saw Dr. Harvey in the office 01/30/24 and he told her to resume Toprol XL 25 mg daily and spironolactone 12.5 mg daily but unclear if this occurred based on current med rec. patient is unsure of recent med
changes
-in vpaced rhythm by EKG. follow on tele. amiodarone was stopped by Dr. Harvey 01/30/24 in office as felt to be ineffective.
-will attempt to continue toprol 25mg daily with hold parameters in place. uptitration of GDMT as BP allows
-she is being considered for watchman through Dr. Harvey
Data Reviewed
-
EKG: Tracing Personally Visualized and interpreted
Radiology: Report Reviewed by me
Medical Tests (Nuc Med, Echo etc): Report Reviewed by me
Labs: Labs Reviewed by me
Old Records: Reviewed
--- NOTE | 2024-02-04 16:15 | HPS.HSE ---
Family Physician
-
Family Physician: Lizandro Stevenson DO
Chief Complaint
-
Shortness of breath, fatigue, palpitations
History of Present Illness
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
came to the hospital from [facility] with shortness of breath, fatigue and palpitations. Initially hemoglobin was checked at [facility] was 6.9 so patient was referred to the ED. In the ER patient hemoglobin is 8.6. Patient denies any
bleeding. Denies any abdominal pain. Denies any nausea, vomiting. Chest x-ray consistent with CHF along with elevated BNP. Currently patient denies any fever/chills.
Medical History
Past Medical History
Past Medical History: Reports Arrhythmia, CAD, CHF, HTN, Hypercholesterolemia and NIDDM
Past Surgical History: Reports Cardiac, Gynocological and Orthopedic
Social History
Tobacco: Non-smoker
Alcohol: None
Family History
Family History: Not pertinent
Allergies / Home Medications
Allergies reflects when Allergies were last updated in [email or web address].
Home Medications with original date entered in [email or web address]
Allergy/Medication List:
Allergies
Allergy/AdvReac Type Severity Reaction Status Date / Time
acetaminophen [From Percocet] Allergy Unknown Verified 02/04/24 12:33
diazepam [From Valium] Allergy Unknown Verified 02/04/24 12:33
lisinopril Allergy Unknown Verified 02/04/24 12:33
oxycodone [From Percocet] Allergy Unknown Verified 02/04/24 12:33
Penicillins Allergy Anaphylaxis Verified 02/04/24 12:33
Home Medications
ferrous sulfate 325 mg (65 mg iron) tablet 650 mg PO BID Supplement ##0 12/29/20
glipizide 10 mg tablet 5 mg PO BID Diabetes 12/29/20
spironolactone 25 mg tablet 12.5 mg PO DAILY Heart Failure 12/29/20
apixaban 2.5 mg tablet (Eliquis) 2.5 mg PO BID Blood Clot Prevention/Tx 12/16/23
atorvastatin 40 mg tablet 40 mg PO HS High Cholesterol 12/16/23
acetaminophen 325 mg tablet (Tylenol) 650 mg PO Q4HPRN PRN mild pain 01/23/24
bisacodyl 10 mg rectal suppository (Dulcolax (bisacodyl)) 10 mg MO [id number] PRN if no bm aftr mom 01/23/24
lidocaine 4 % topical patch 1 patch topical DAILY right shoulder pain 01/23/24
magnesium hydroxide 400 mg/5 mL oral suspension (Milk of Magnesia) 2,400 mg PO HSPRN PRN constipation 01/23/24
metoprolol tartrate 100 mg tablet (Lopressor) 100 mg PO BID Blood Pressure 01/23/24
trazodone 50 mg tablet 25 mg PO HS 01/23/24
cyanocobalamin (vitamin B-12) 1,000 mcg tablet 1,000 mcg PO DAILY #30 tabs 01/27/24
pantoprazole 40 mg tablet,delayed release (Protonix) 40 mg PO DAILY #30 tabs 01/27/24
epoetin west 40,000 unit/mL injection solution 20,000 unit SC Q2W 02/04/24
levothyroxine 100 mcg tablet (Synthroid) 100 mcg PO DAILY 02/04/24
trazodone 50 mg tablet 25 mg PO Q8HPRN PRN anxiety 02/04/24
Review of Systems
-
History Source: Patient
A 12 point ROS was completed and negative except as noted: Yes
Respiratory: Reports Trouble Breathing
Physical Exam
Vital Signs
Vital Signs
Temp Pulse Resp BP Pulse Ox
98.6 F 84 20 110/83 100
02/04/24 12:33 02/04/24 12:33 02/04/24 12:33 02/04/24 12:33 02/04/24 12:33
Physical Exam
General: No Apparent Distress and Comfortable
HEENT: Anicteric and Moist mucous membranes
Respiratory: Clear and Non Labored Respirations; No Wheezes
Cardiac: S1/S2 and Regular Rhythm
Breast: Deferred by me
GI: Soft, Non Tender, Non Distended and Normal Bowel Sounds
Rectal: Deferred by Provider
Genito-urinary: No Saba
Musculoskeletal: No Edema
Neuro: Awake, Alert, Oriented and AO x 3
Psych: Calm and Intact Judgment/Insight
Laboratory Results
-
02/04/24 12:38
02/04/24 13:57
Laboratory Results
PT 15.0 Sec (11.4-14.6) H 02/04/24 12:38
INR 1.18 02/04/24 12:38
APTT 25.4 Sec (23.4-35.0) 02/04/24 12:38
Total Bilirubin 0.6 mg/dl (0.2-1.3) 02/04/24 13:57
AST 30 U/L (14-36) 02/04/24 13:57
ALT 20 U/L (0-35) 02/04/24 13:57
Alkaline Phosphatase 84 U/L (38-126) 02/04/24 13:57
Troponin I 0.032 ng/ml 02/04/24 13:57
Data Reviewed
-
Diagnostic Radiology: Report Reviewed by me and Discussed with Patient
Lab Data: Labs Reviewed by me and Discussed with Patient
Impression/Plan
-
Shortness of breath secondary to acute on chronic CHF with reduced EF
Echo EF 20 to 25% by AUDI 12/11/2023
Chronic left bundle branch block
s/p Medtronic BROKER IN CHARGE-P 12/29/20
Chest x-ray noted
Consult cardiology
IV Lasix
Per patient and her son her assistant track coach stopped her Eliquis; watchmann is ongoing discussion however per son its likely not going to happen
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
Trend troponin
per med rec on Lopressor; should switch to toprol
Paroxysmal A-fib
Status post AV node ablation 12/16/2023
Hold BB for now; per med rec on lopressor
eliquis dc'ed by primary assistant track coach Dr Harvey
was on amio on last dc but currently not on amio anymore
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
Does have chronic anemia
Hemoglobin apparently Neshaminy was 6.9 this morning however repeat 8.6 without any management
Currently without any bleeding, monitor
Continue PPI
EGD 01/25 noted with few small ectasia in the gastric body, antrum and duodenal bulb. Cauterized with APC
Mild hyponatremia
Monitor
Essential hypertension
Monitor
Hold Lopressor for now
History of CKD 3
Monitor
History of diabetes mellitus
A1c 7.4
Sliding scale, Accu-Cheks. Continue glipizide
History of right parietal ischemic stroke
Hyperlipidemia
DVT prophylaxis
Heparin
DNR, confirmed with patient admission
Discussed with son over the phone in detail
I spent a total of 78 minutes with the patient or on the floor. More than 50% of this time involved counseling and coordination of care.
--- NOTE | 2024-02-04 18:09 | CM ---
CM reviewed medical records. Patient has presented from [facility] as STR. CM met with patient in room. Patient confirmed that she is anxious to return to [facility] and 'finish her physical therapy.'
CM sent preliminary referral to [facility]. CM pending PT evaluation.
PLAN; STR at [facility].
[2024-02-04 18:33] LABS: Glucose - Point of Care 138 mg/dl (70-99)
[2024-02-04] MEDS: NOVOLOG FLEXPEN-LOW RESISTANCE SC (18:48)
[2024-02-04 19:10] LABS: Troponin I 0.039 ng/ml
[2024-02-04 20:31] LABS: Glucose - Point of Care 242 mg/dl (70-99)
[2024-02-04 21:05] LABS: Hematocrit 25.2 % (37.0-47.0); Hemoglobin 7.9 g/dL (12.0-16.0)
[2024-02-04] MEDS: HEPARIN 5000 UNITS SC (21:21)
[2024-02-04] MEDS: GLUCOTROL 5 MG PO (21:21)
[2024-02-04] MEDS: DESYREL 25 MG PO (21:22)
[2024-02-04] MEDS: LIPITOR 40 MG PO (21:22)
[2024-02-05] VITALS (9 sets, daily range): BP systolic 108–138; BP diastolic 44–60; PULSE 63–69; O2SAT 99; BMI 22.5
[2024-02-05 01:12] LABS: Troponin I 0.036 ng/ml
[2024-02-05] MEDS: SYNTHROID 100 MCG PO (06:24)
--- NOTE | 2024-02-05 06:39 | PTCARENOTE ---
Blood bank notified nurse that Antibodies from [facility] were not accurately resulting. Blood bank stated they arnaud blood twice and both times antibodies were not resulting correctly. Hannah from blood bank stated in order to properly result
antibodies, they would have to do an extensive [place] work up that is very costly to patient. Patient hbg at current time of conversation was 8.6. Another Hbg to be drawn at 2100 on 02/04/24. teacher physically impaired MEDICAL ASSISTANT SECRETARY notified and made aware and wanted to see
what 2100 Hbg was first. 2100 Hbg was 7.9. Vitals stable. MEDICAL ASSISTANT SECRETARY aware and decided to not do extensive blood draw at this time and to wait to see what morning Hbg is and MEDICAL ASSISTANT SECRETARY will report situation to incoming hospitalist. RN notified blood bank and
made aware of plan. No bllod ordered at this time.
[2024-02-05 07:42] LABS: Glucose - Point of Care 158 mg/dl (70-99)
[2024-02-05 07:59] LABS: % Basophils 0.3 % (0-2); % Eosinophils 1.4 % (0-6); % Immature Granulocytes 0.9 % (0-0.5); % Lymphocytes 11.7 % (20.5-51.1); % Monocytes 6.2 % (1.7-9.3); % Neutrophils 79.5 % (42.2-75.2); Absolute Eosinophils 0.1 10^3/uL (0-0.7); Absolute Immature Granulocytes 0.1 10^3/uL (0-0.05); Absolute Lymphocytes 0.8 10^3/uL (1.2-3.4); Absolute Monocytes 0.4 10^3/uL (0.1-0.6); Absolute Neutrophils 5.1 10^3/uL (1.4-6.5); Hematocrit 23.3 % (37.0-47.0); Mean Corpuscular Hgb 31.8 pg (27.0-31.0); Mean Corpuscular Volume 105.9 fL (81.0-99.0); Mean Platelet Volume 10.8 fL (7.4-10.4); Nucleated Red Blood Cells % 0 %; Platelet Count 200 10^3/uL (130-400); Red Cell Dist. Width 22.6 % (11.5-14.5); White Blood Cell Count 6.4 10^3/uL (4.8-10.8)
[2024-02-05 08:30] LABS: Troponin I 0.037 ng/ml
[2024-02-05] MEDS: LIDOCAINE 4% PATCH 1 PATCH TOPICAL (08:35)
[2024-02-05] MEDS: VITAMIN B-12 1000 MCG PO (08:36)
[2024-02-05] MEDS: GLUCOTROL 5 MG PO ×2 (08:36→16:35)
[2024-02-05] MEDS: HEPARIN 5000 UNITS SC ×2 (08:36→20:37)
[2024-02-05] MEDS: TOPROL XL 25 MG PO (08:36)
[2024-02-05] MEDS: PROTONIX 40 MG PO (08:36)
[2024-02-05] MEDS: LASIX 40 MG IV (08:37)
[2024-02-05 08:39] LABS: Blood Urea Nitrogen 33 mg/dl (7-17); Calcium 8.6 mg/dl (8.4-10.2); Carbon Dioxide 26 mmol/L (22-30); Chloride 105 mmol/L (98-107); Estimated Creatinine Clearance 20 ml/min; Glucose 136 mg/dl (70-99); Potassium 4.3 mmol/L (3.5-5.1); Sodium 133 mmol/L (135-145); eGFR 43.54
[2024-02-05 08:49] LABS: Iron 55 ug/dl (37-170)
[2024-02-05 08:58] LABS: Percent Saturation 19 % (20-50); Total Iron Binding Capacity 287 ug/dl (265-497)
[2024-02-05] MEDS: NOVOLOG FLEXPEN-LOW RESISTANCE 1 UNITS SC ×2 (09:59→16:34)
--- NOTE | 2024-02-05 10:03 | W.PN.CARDCBS ---
Today's Communication / Plan
-
Primary service addressing events from this morning and last night with weakness.
Hemoglobin 7, repeat is pending.
Hold Lasix for now. Continue to reassess. Will resume when stable.
Eliquana is currently on hold although patient high risk given persistent A-fib and history of prior stroke. Resume once stable.
Impression / Plan
-
PCP: Dr. Olga Curry
Wire Communications Engineer: Dr. Harvey
Impression:
Multifactorial SOB
Acute on chronic HFrEF
Acute on chronic anemia, improving from last admission
Recent admission for acute blood loss anemia, GIB 01/22- 01/27/24
h/o GI bleeding/recurrent anemia presumed due to AV malformations
Nonischemic CM EF 20-25% by AUDI 12/11/23
Persistent Afib/tach/aflutter
Chronic amiodarone therapy, stopped by Dr. Harvey 01/30/24
Chronic Eliquis OAC
s/p AV node ablation 12/16/23
s/p Medtronic SUPERVISOR MAPPING-P 12/29/20
Chronic LBBB
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
h/o right parietal ischemic stroke 06/2020
Hypertension
Hyperlipidemia
AUDI 12/11/23: HRH study, EF 20-25%
Plan:
-Patient relays that she had an episode today where in the bathroom she became very dizzy and had to be taken back to bed. This is in the setting of decreased hemoglobin to 7. Will obtain details. Defer to primary service. She is not sure if
bleeding was noted.
-Hgb was 7.2 on 02/02/24 and then 6.9 in the ER at in AM. No record of transfusion, thenHgb now up to 8.6 on recheck but once again has decreased.
-h/o GIB and AVMs, but following APC of ectasias last admission patient was cleared to resume Eliquis 2.5mg BID due to h/o persistent Afib/tach and CVA. Eliquis now on hold again with variable hgb
-From a cardiac point of view some dyspnea on exertion noted which is likely multifactorial. Continue rate control of atrial fibrillation for now. Continue to reassess oral anticoagulation risk. History of parietal stroke in the past.
-EF 20-25% by AUDI at [facility] 12/11/23.
-She has been receiving diuresis but will hold for right now until recent events regarding dizziness and decreased hemoglobin addressed.
-Previously at [facility] at cardiology discharge 12/17/23 patient was ordered spironolactone 12.5 mg daily (currently on hold) and Toprol-XL?/metoprolol tartrate 100 mg BID (on low-dose Toprol-XL currently which was started at cardiology office
01/30/2024). Previously other medications were held for hypotension.
-in vpaced rhythm by EKG. follow on tele. Amiodarone was stopped by Dr. Harvey 01/30/24 in office as felt to be ineffective. Atrial fibrillation felt to be persistent. She is status post AVJ ablation.
-She is being considered for watchman through Dr. Harvey
-Patient came [facility] from [facility] today with abnormal lab work concerning for anemia and is now being admitted for acute HFrEF resulting in cardiology consult. Patient was just admitted to 01/23/24 until 01/27/24 with anemia in the setting of GIB.
Pateint was transfused with 2 units PRBCs that admission and EGD showed a few small ectasias that were cauterized with APC therefore she was felt to be stable to resume Eliquis at 2.5 mg BID prior to discharge. Patient has a h/o GIB, but has
remained on OAC due to h/o persistent atrial arrhythmia and CVA as well. Patient was also recently at 12/16/23 to 12/17/23 after being transferred from [facility] for an AV node ablation. Her EF was down to 20-25% by cath at [facility] at that time, but no
evidence of acute HF and patient was not on a daily diuretic. Patient now c/o SOB and pro-BNP is 3670. Patient was given Lasix 40 mg IV x1 in [facility].
Progress Note - Wire Communications Engineer
Subjective
Date of Service: February 05, 2024
She feels tired but denies chest pain and palpitations.
Objective
Labs:
02/05/24 07:23
Labs
Hgb 7.0 g/dL (12.0-16.0) L 02/05/24 07:23
Hct 23.3 % (37.0-47.0) L 02/05/24 07:23
Plt Count 200 10^3/uL (130-400) D 02/05/24 07:23
PT 15.0 Sec (11.4-14.6) H 02/04/24 12:38
INR 1.18 02/04/24 12:38
APTT 25.4 Sec (23.4-35.0) 02/04/24 12:38
Sodium 133 mmol/L (135-145) L 02/05/24 07:23
Potassium 4.3 mmol/L (3.5-5.1) 02/05/24 07:23
BUN 33 mg/dl (7-17) H 02/05/24 07:23
Creatinine 1.2 mg/dL (0.6-1.0) H 02/05/24 07:23
Glucose 136 mg/dl (70-99) H 02/05/24 07:23
Troponins
02/04/24 02/04/24 02/04/24
13:30 13:57 18:36
Troponin I Cancelled 0.032 0.039 H*
02/05/24 02/05/24
00:26 07:23
Troponin I 0.036 H* 0.037 H*
Vital Signs and I&O:
Vital Signs
Temp Pulse Resp BP Pulse Ox
98.5 F 63 17 124/52 98
02/05/24 07:53 02/05/24 08:36 02/05/24 07:53 02/05/24 08:36 02/05/24 07:53
Vital Signs
Temp Pulse Resp BP Pulse Ox
98.5 F 63 17 124/52 98
02/05/24 07:53 02/05/24 08:36 02/05/24 07:53 02/05/24 08:36 02/05/24 07:53
Intake & Output
02/03/24 02/04/24 02/05/24 02/06/24
06:59 06:59 06:59 06:59
Intake Total 480 / 480
Output Total 550 / 550
Balance -70 / -70
Physical Exam
Physical Exam
General: Well developed, well nourished in NAD.
Heart: Non displaced PMI, RRR, 2/6 basal systolic murmur, No S3, S4, no rubs.
Lungs: Coarse breath sounds
Extremities: No clubbing, cyanosis or edema bilaterally.
Neuro: Grossly nonfocal, awake, alert and oriented x3.
[2024-02-05 10:46] LABS: Ferritin 57.7 ng/ml (11.1-264.0)
[2024-02-05 11:03] LABS: Glucose - Point of Care 291 mg/dl (70-99)
[2024-02-05 11:11] LABS: Hematocrit 24.8 % (37.0-47.0); Hemoglobin 7.6 g/dL (12.0-16.0)
[2024-02-05 11:17] LABS: Folate 11.4 ng/ml (2.76-20); Vitamin B12 945 pg/ml (239-931)
--- NOTE | 2024-02-05 11:18 | W.PN.HOSP.TC ---
Addendum entered and electronically signed by Jordon Herring MD 02/05/24 14:04:
Updated son over the phone
Original Note:
Today's Communication/Plan
-
Monitor vitals
See plan
monitor volume status
repeat hgb 7.6; monitor
start IV iron
PT/OT
Assessment / Plan
Assessment / Plan
General: No Apparent Distress and Comfortable
HEENT: Anicteric and Moist mucous membranes
Respiratory: Clear and Non Labored Respirations; No Wheezes
Cardiac: S1/S2 and Regular Rhythm
Breast: Deferred by me
GI: Soft, Non Tender, Non Distended and Normal Bowel Sounds
Rectal: Deferred by Provider
Genito-urinary: No Saba
Musculoskeletal: No Edema
Neuro: Awake, Alert, Oriented and AO x 3
Psych: Calm and Intact Judgment/Insight
Shortness of breath secondary to acute on chronic CHF with reduced EF
Echo EF 20 to 25% by AUDI 12/11/2023
Chronic left bundle branch block
s/p Medtronic ABATTOIR SUPERVISOR-P 12/29/20
Chest x-ray noted
cardiology following
IV Lasix now on hold by cards
Per patient and her son her ore bridge operator stopped her Eliquis; ant is ongoing discussion however per son its likely not going to happen
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
Trend troponin
per med rec on Lopressor; should switch to toprol
Elevated troponin likely from non myocardial injury
persistent A-fib
Status post AV node ablation 12/16/2023
Hold BB for now; per med rec on lopressor
eliquis dc'ed by primary ore bridge operator Dr Harvey
was on amio on last dc but currently not on amio anymore
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
Does have chronic anemia; iron deficient; start IV iron
Hemoglobin this morning 7, repeat 7.6. Continue to monitor
Currently without any bleeding, monitor
Continue PPI
EGD 01/25 noted with few small ectasia in the gastric body, antrum and duodenal bulb. Cauterized with APC
Mild hyponatremia
Monitor
Essential hypertension
Monitor
Hold Lopressor for now
History of CKD 3
Monitor
History of diabetes mellitus
A1c 7.4
Sliding scale, Accu-Cheks. Continue glipizide
History of right parietal ischemic stroke
Hyperlipidemia
DVT prophylaxis
Heparin
DNR, confirmed with patient admission
I spent a total of 54 minutes with the patient or on the floor. More than 50% of this time involved counseling and coordination of care.
Anticipated Discharge: Within 24 hours
Subjective/Interval History
-
Date of Service: February 05, 2024
denies pain
Objective Data
-
Labs:
Laboratory Results
02/05/24 02/05/24
07:23 10:38
WBC 6.4
Hgb 7.0 L 7.6 L
Hct 23.3 L 24.8 L
Plt Count 200 D
Sodium 133 L
Potassium 4.3
Chloride 105
Carbon Dioxide 26
BUN 33 H
Creatinine 1.2 H
Glucose 136 H
Calcium 8.6
Vital Signs:
Vital Signs
Temp Pulse Resp BP Pulse Ox
98.5 F 63 17 124/52 98
02/05/24 07:53 02/05/24 08:36 02/05/24 07:53 02/05/24 08:36 02/05/24 07:53
I&O
02/04/24 02/05/24 02/06/24
06:59 06:59 06:59
Intake Total 480 / 480
Output Total 550 / 550
Balance -70 / -70
[2024-02-05] MEDS: NOVOLOG FLEXPEN-LOW RESISTANCE 3 UNITS SC (12:39)
--- NOTE | 2024-02-05 13:50 | W.PN.UPDATE ---
Update Note
Progress Note Update
ortho VS noted - negative from lying to sitting however standing signs not recorded. noted that patient had large black BM today. will hold off on resuming eliquis for now with evidence of continued GI bleeding. would consider for transfusion. GI to
eval. patient receiving iron. will follow
[2024-02-05] MEDS: FERRLECIT 110 MG IV (13:57)
--- NOTE | 2024-02-05 14:47 | CM ---
met with patient at bedside.her hbg is 7.6 on repeat.she is started on iv iron.continue ppi.seen by physical therapy who are recommending patient return to snf at [facility]. son sushant is holding the bed for patient at [facility],he is
anxious tp fond out when patient is ready for discharge.spoke with sushant briefly because he was on the phone with [facility].spoke with attending who feels patient will dc in 1-2 days because gi is following patient closely for a gi bleed.i
will recall son to discuss continuing bed hold.
Plan:patient to return to [facility] when stable for dc.
[2024-02-05 16:27] LABS: Glucose - Point of Care 157 mg/dl (70-99)
[2024-02-05] MEDS: PROTONIX IV 40 MG IV (20:38)
[2024-02-05] MEDS: NSS (PRESERVATIVE FREE) 10 ML IV (20:39)
[2024-02-05 21:55] LABS: Glucose - Point of Care 102 mg/dl (70-99)
[2024-02-05] MEDS: DESYREL 25 MG PO (22:07)
[2024-02-05] MEDS: LIPITOR 40 MG PO (22:08)
[2024-02-06] VITALS (7 sets, daily range): BP systolic 111–144; BP diastolic 48–59; PULSE 61–62; O2SAT 100; BMI 21.3
[2024-02-06] MEDS: SYNTHROID 100 MCG PO (06:07)
[2024-02-06 07:40] LABS: Glucose - Point of Care 102 mg/dl (70-99)
[2024-02-06] MEDS: NOVOLOG FLEXPEN-LOW RESISTANCE SC (07:48)
[2024-02-06 08:28] LABS: % Basophils 0.8 % (0-2); % Eosinophils 1.4 % (0-6); % Lymphocytes 12.9 % (20.5-51.1); % Monocytes 7.8 % (1.7-9.3); % Neutrophils 76.1 % (42.2-75.2); Absolute Eosinophils 0.1 10^3/uL (0-0.7); Absolute Immature Granulocytes 0.1 10^3/uL (0-0.05); Absolute Lymphocytes 0.6 10^3/uL (1.2-3.4); Absolute Monocytes 0.4 10^3/uL (0.1-0.6); Absolute Neutrophils 3.8 10^3/uL (1.4-6.5); Hematocrit 24.6 % (37.0-47.0); Hemoglobin 7.4 g/dL (12.0-16.0); Mean Corp Hgb Conc. 30.1 g/dL (33.0-37.0); Mean Corpuscular Hgb 31.5 pg (27.0-31.0); Mean Corpuscular Volume 104.7 fL (81.0-99.0); Mean Platelet Volume 10.8 fL (7.4-10.4); Nucleated Red Blood Cells % 0.4 %; Platelet Count 201 10^3/uL (130-400); Red Blood Cell Count 2.35 10^6/uL (4.20-5.40); Red Cell Dist. Width 21.6 % (11.5-14.5)
--- NOTE | 2024-02-06 08:47 | CON.GI ---
Addendum entered and electronically signed by Royce Reynoso MD 02/06/24 15:48:
I saw and examined the patient.
The ROLL EDGE MACHINE OPERATOR or PA's note was reviewed and I agree with the note.
Comment:
Pt is a 88 y/o with known AVM disease with multiple endoscopic exams last one on 01/25 with apc of non bleeding avms. came in with dizziness. Initial hgb was 6.9, repeat is 8.5. No bleeding per pt. some abd cramps.
abd: soft, nontender
impression:
anemia
avms of gi tract
plan:
monitor hgb which seems stable
stool studies if diarrhea
iron/octreotide per hematology
No urgent endoscopic exams for now
records from [facility]
Original Note:
Consultation
-
Date/Time Consultation Requested: 02/05/24 1311
Date/Time Consultation Performed: 02/06/24 0900
Requesting Provider: Dr. Herring
Performing Provider: Dr. Royce Reynoso / Effie Shabazz PA-C
Reason for Consultation: anemia
Medical History
Chief Complaint / HPI
Chief Complaint: anemia
History of Present Illness:
This is an 88-year-old female with past medical history of atrial fibrillation (NOT on Eliquis, discontinued recently by her Employee Relation Manager), CAD, permanent pacemaker, nonischemic cardiomyopathy, CVA, diabetes, hypothyroidism, multiple small bowel
AVMs with history of recurrent GI bleeding requiring cautery with Dr. Leo at [facility], who was recently admitted here at for anemia/GI bleed due to bleeding gastric and duodenal AVMs which were cauterized with APC by Dr. Mccoy on 01/26/24. Sent to
the hospital yesterday 02/05/[address] [facility] with hemoglobin of 6.9 and pt was complaining of dizziness, weakness. In the ER, Hgb was 8.6. She denies any rectal bleeding, but does note that she has had black stools, although patient is on
oral iron supplementation. She has not had any diarrhea or constipation recently and denies any abdominal pain, nausea, vomiting, fevers or chills. She denies any early satiety or weight loss. She was discharged 01/27/24 on pantoprazole with
instructions to follow up with GI, Dr. Leo at [facility], as well as Hematology, and to continue monthly octreotide (Sandostatin). She states that she saw her Employee Relation Manager, Dr. Harvey, about 1 week ago per pt, and Eliquis was stopped with discussion
of possible Watchman procedure. Today's labs reviewed: Hgb 7.4, Hct 24.6, MCV 104.7, platelets 201, PT 15.0, INR 1.18, creatinine 1.4, BUN 36, serum iron 55, TIBC 287, ferritin 57.7. Vitamin B12 956 and folate 11.4. Normal LFTs. Pt reports a history
of colon polyps. No family history of GI malignancies.
Past Medical History
Past Medical History: Arrhythmias (A-fib), CAD, CVA and Other (Nonischemic cardiomyopathy, diabetes, hypothyroidism, small bowel AVMs, iron deficiency anemia)
Past Surgical History: Cardiac (Pacemaker, AV node ablation, right femoral artery dissection, femoral artery endarterectomy)
Social History
Tobacco: Non-Smoker
Alcohol: None
Drug: None
Living: Longterm
Family History
Family History: Other (No family history gastrointestinal malignancy or IBD)
Allergies / Home Medications
Allergy/AdvReac Type Severity Reaction Status Date / Time
acetaminophen [From Percocet] Allergy Unknown Verified 02/04/24 12:33
diazepam [From Valium] Allergy Unknown Verified 02/04/24 12:33
lisinopril Allergy Unknown Verified 02/04/24 12:33
oxycodone [From Percocet] Allergy Unknown Verified 02/04/24 12:33
Penicillins Allergy Anaphylaxis Verified 02/04/24 12:33
�Medication �Instructions �Recorded
ferrous sulfate 325 mg (65 mg 650 mg PO BID Supplement ##0 12/29/20
iron) tablet
glipizide 10 mg tablet 5 mg PO BID Diabetes 12/29/20
spironolactone 25 mg tablet 12.5 mg PO DAILY Heart Failure 12/29/20
apixaban 2.5 mg tablet (Eliquis) 2.5 mg PO BID Blood Clot 12/16/23
Prevention/Tx
atorvastatin 40 mg tablet 40 mg PO HS High Cholesterol 12/16/23
acetaminophen 325 mg tablet 650 mg PO Q4HPRN PRN mild pain 01/23/24
(Tylenol)
bisacodyl 10 mg rectal suppository 10 mg DC [id number] PRN if no bm aftr 01/23/24
(Dulcolax (bisacodyl)) mom
lidocaine 4 % topical patch 1 patch topical DAILY right 01/23/24
shoulder pain
magnesium hydroxide 400 mg/5 mL 2,400 mg PO HSPRN PRN constipation 01/23/24
oral suspension (Milk of MagnPressi)
metoprolol tartrate 100 mg tablet 100 mg PO BID Blood Pressure 01/23/24
(Lopressor)
trazodone 50 mg tablet 25 mg PO HS Mental Health/Anxiety 01/23/24
cyanocobalamin (vitamin B-12) 1,000 mcg PO DAILY #30 tabs 01/27/24
1,000 mcg tablet
pantoprazole 40 mg tablet,delayed 40 mg PO DAILY #30 tabs 01/27/24
release (Protonix)
epoetin west 40,000 unit/mL 20,000 unit SC Q2W 02/04/24
injection solution
levothyroxine 100 mcg tablet 100 mcg PO DAILY Thyroid 02/04/24
(Synthroid)
trazodone 50 mg tablet 25 mg PO Q8HPRN PRN anxiety 02/04/24
Review of Systems
-
History Source: Patient
All other systems: A 12 pt ROS was Negative except as stated above in HPI
Vital Signs
Temp Pulse Resp BP Pulse Ox
97.5 F 62 17 121/55 97
02/06/24 07:52 02/06/24 07:52 02/06/24 07:52 02/06/24 07:52 02/06/24 07:52
Physical Exam
Exam
General: Well Developed, Well Nourished and No Apparent Distress
Respiratory: Clear
Cardiac: Regular Rhythm
GI: Soft, Non Tender, Non Distended and Normal Bowel Sounds
Rectal: Hem Positive and Other (Dark brown stool, heme positive)
Musculoskeletal: No Edema
Skin: Warm and Dry
Neuro: AO x 3
Psych: Calm
Results
WBC 5.0 10^3/uL (4.8-10.8) 02/06/24 07:30
Hgb 7.4 g/dL (12.0-16.0) L 02/06/24 07:30
Hct 24.6 % (37.0-47.0) L 02/06/24 07:30
MCV 104.7 fL (81.0-99.0) H 02/06/24 07:30
Plt Count 201 10^3/uL (130-400) 02/06/24 07:30
Absolute Neuts (auto) 3.8 10^3/uL (1.4-6.5) 02/06/24 07:30
PT 15.0 Sec (11.4-14.6) H 02/04/24 12:38
INR 1.18 02/04/24 12:38
APTT 25.4 Sec (23.4-35.0) 02/04/24 12:38
Sodium 133 mmol/L (135-145) L 02/05/24 07:23
Potassium 4.3 mmol/L (3.5-5.1) 02/05/24 07:23
Chloride 105 mmol/L (98-107) 02/05/24 07:23
Carbon Dioxide 26 mmol/L (22-30) 02/05/24 07:23
BUN 33 mg/dl (7-17) H 02/05/24 07:23
Creatinine 1.2 mg/dL (0.6-1.0) H 02/05/24 07:23
Calcium 8.6 mg/dl (8.4-10.2) 02/05/24 07:23
Total Bilirubin 0.6 mg/dl (0.2-1.3) 02/04/24 13:57
AST 30 U/L (14-36) 02/04/24 13:57
ALT 20 U/L (0-35) 02/04/24 13:57
Alkaline Phosphatase 84 U/L (38-126) 02/04/24 13:57
Diagnostic Image Results:
Chest x-ray, 02/04/24:
Cardiomegaly.
Slightly increased pulmonary vascularity suggesting mild CHF.
Prior GI Procedures:
EGD, 01/26/24, Dr. Mccoy:
- Normal esophagus.
- A few non-bleeding angioectasias in the stomach.
Treated with argon plasma coagulation (APC).
- A few non-bleeding angioectasias in the duodenum.
Treated with argon plasma coagulation (APC).
- No specimens collected.
Recommendation: - [facility].
- Resume monthly Sandostatin LAR (missed her dose in
December)
Previous EGDs done at Dr. Felipa Johnson (records not available), prior to 2016
Colonoscopy:
Previously done at Dr. Felipa Johnson (records not available), prior to 2017
Reported history of colon polyps.
Assessment / Plan
-
88-year-old female with past medical history of atrial fibrillation (NOT on Eliquis, discontinued recently by her Employee Relation Manager), CAD, permanent pacemaker, nonischemic cardiomyopathy, CVA, diabetes, hypothyroidism, multiple small bowel AVMs with
history of recurrent GI bleeding requiring cautery with Dr. Leo at [facility], who was recently admitted here at for anemia/GI bleed due to bleeding gastric and duodenal AVMs which were cauterized with APC by Dr. Mccoy on 01/26/24. [facility] from [facility] with hemoglobin of 6.9 and pt was complaining of dizziness, weakness. In the ER, Hgb was 8.6. She denies any rectal bleeding, but does note that she has had black stools, although patient is on oral
iron supplementation. She has not had any diarrhea or constipation recently and denies any abdominal pain, nausea, vomiting, fevers or chills. She denies any early satiety or weight loss. She was discharged 01/27/24 on pantoprazole with instructions
to follow up with GI, Dr. Leo at [facility], as well as Hematology, and to continue monthly octreotide (Sandostatin). She states that she saw her Employee Relation Manager, Dr. Harvey, about 1 week ago per pt, and Eliquis was stopped with discussion of possible
Watchman procedure. Today's labs reviewed: Hgb 7.4, Hct 24.6, MCV 104.7, platelets 201, PT 15.0, INR 1.18, creatinine 1.4, BUN 36, serum iron 55, TIBC 287, ferritin 57.7. Vitamin B12 956 and folate 11.4. Normal LFTs. Pt reports a history of colon
polyps. No family history of GI malignancies. Also noted with heart failure and pro-BNP 3670, Cardiology has been consulted. She has remained hemodynamically stable.
IMPRESSION / PLAN:
Acute on Chronic Anemia, with history of GI bleeding due to gastric and small bowel AVMs
-Hgb 6.9 outpatient on 02/03, then 8.6 in ER (without intervention or transfusion)
-Hgb in the 7.9 - 7.0 - 7.6 - 7.4 range since admission
-h/o recent GI bleeding from gastric and small bowel AVMs, cauterized by Dr. Mccoy 01/26/24
-continue PPI, pantoprazole 40mg BID
-Eliquis has been discontinued by Cardiology (last week per patient)
-continue to trend Hgb, transfuse if falls below 7
-dark brown, heme positive on rectal exam
-monitor closely for signs of active bleeding
---Further recommendations to be forthcoming regarding possible need for repeat endoscopic evaluation, to discuss timing with Dr. Reynoso
Other medical issues managed as per Cardiology and Hospitalist.
-
-
Thank you for consultation and allowing me to participate in the patient's care. Please call the regional [facility] physician during the after hours with any questions or concerns.
[2024-02-06] MEDS: GLUCOTROL 5 MG PO ×2 (08:50→17:40)
[2024-02-06] MEDS: TOPROL XL 25 MG PO (08:50)
[2024-02-06] MEDS: VITAMIN B-12 1000 MCG PO (08:50)
[2024-02-06] MEDS: LIDOCAINE 4% PATCH 1 PATCH TOPICAL (08:50)
[2024-02-06] MEDS: HEPARIN 5000 UNITS SC ×2 (08:51→21:10)
[2024-02-06] MEDS: NSS (PRESERVATIVE FREE) 10 ML IV ×2 (08:51→21:09)
[2024-02-06] MEDS: PROTONIX IV 40 MG IV ×2 (08:51→21:10)
[2024-02-06 08:52] LABS: Blood Urea Nitrogen 36 mg/dl (7-17); Calcium 8.4 mg/dl (8.4-10.2); Carbon Dioxide 27 mmol/L (22-30); Chloride 104 mmol/L (98-107); Estimated Creatinine Clearance 17 ml/min; Glucose 91 mg/dl (70-99); Potassium 4.1 mmol/L (3.5-5.1); Sodium 134 mmol/L (135-145); eGFR 36.19
[2024-02-06 11:19] LABS: Glucose - Point of Care 318 mg/dl (70-99)
--- NOTE | 2024-02-06 11:30 | W.PN.CARDCBS ---
Addendum entered and electronically signed by Hair Muñoz MD 02/06/24 14:58:
I saw and examined the patient.
The Tow Car Driver's note was reviewed and I agree with the note.
Comment:
GEN: No distress, awake, Ox3
HEENT: supple, anicteric, mmm
LUNGS: CTA, no wheezes/rales
CV: irreg, S1/S2, 1/6 syst LSB, no gallop
ABD: soft, BS+, NT/ND
EXT: No edema
NEURO: Gross non-focal
SKIN: No rash
plan:
Continue to hold Lasix and Eliquis. Likely for repeat endoscopy. Hemoglobin today at 7.4
Creatinine up to 1.4
Original Note:
Today's Communication / Plan
-
Hold lasix
Continue holding Eliquis
Eventual repeat endoscopy
Follow hgb and transfuse as needed
Impression / Plan
-
PCP: Dr. Olga Curry
Applications Intern: Dr. Harvey
Impression:
Multifactorial SOB
Acute on chronic HFrEF
Acute on chronic anemia, improving from last admission
Recent admission for acute blood loss anemia, GIB 01/22- 01/27/24
h/o GI bleeding/recurrent anemia presumed due to AV malformations
Nonischemic CM EF 20-25% by AUDI 12/11/23
Persistent Afib/tach/aflutter
Chronic amiodarone therapy, stopped by Dr. Harvey 01/30/24
Chronic Eliquis OAC
s/p AV node ablation 12/16/23
s/p [employer]tr[employer] DIRECTOR CLINICAL DATA-P 12/29/20
Chronic LBBB
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
h/o right parietal ischemic stroke 06/2020
Hypertension
Hyperlipidemia
AUDI 12/11/23: [facility] study, EF 20-25%
Plan:
-Presented with anemia. Also with evidence of acute heart failure.
-Diuresed with IV lasix 40mg daily. Placed on hold 02/04 due to episode dizziness. Creat up to 1.4 02/05.
-Weight down to 98 lbs 02/05. Continue to follow daily weights, I&Os, and renal function.
-EF 12/2023 with EF 20-25% as noted above.
-Continue Toprol 25mg daily for medical therapy. Previously on spironolactone which has been on hold due to hypotension.
-Also with h/o GIB and AVMs w/ APC of ectasias last admission and now this admission has had anemia, although has not required transfusion thus far.
-Hgb 7.4 in AM 02/05. GI evaluated patient and found to have heme + stool. Considering repeat endoscopy, timing TBD.
-Has h/o Afib and CVA, although Eliquis has been on hold again with recurrent anemia and GIB
-Remains in persistent atrial fibrillation. s/p AV node ablation and HR stable on review of telemetry. Continue Toprol. Previously amiodarone stopped as OP as it was felt to be ineffective.
-She is being considered for watchman through Dr. Harvey
HPI: [facility] today with abnormal lab work concerning for anemia and is now being admitted for acute HFrEF resulting in cardiology consult. Patient was just admitted to 01/23/24 until 01/27/24 with anemia in the setting of
GIB. Pateint was transfused with 2 units PRBCs that admission and EGD showed a few small ectasias that were cauterized with APC therefore she was felt to be stable to resume Eliquis at 2.5 mg BID prior to discharge. Patient has a h/o GIB, but has
remained on OAC due to h/o persistent atrial arrhythmia and CVA as well. Patient was also recently at 12/16/23 to 12/17/23 after being transferred from [facility] for an AV node ablation. Her EF was down to 20-25% by cath at [facility] at that time, but no
evidence of acute HF and patient was not on a daily diuretic. Patient now c/o SOB and pro-BNP is 3670. Patient was given Lasix 40 mg IV x1 in [facility].
Progress Note - Applications Intern
Subjective
Date of Service: February 06, 2024
Reports she has had ongoing diarrhea and abdominal cramping. Otherwise no CP, SOB.
Objective
Labs:
02/06/24 07:30
02/06/24 07:30
Labs
Hgb 7.4 g/dL (12.0-16.0) L 02/06/24 07:30
Hct 24.6 % (37.0-47.0) L 02/06/24 07:30
Plt Count 201 10^3/uL (130-400) 02/06/24 07:30
PT 15.0 Sec (11.4-14.6) H 02/04/24 12:38
INR 1.18 02/04/24 12:38
APTT 25.4 Sec (23.4-35.0) 02/04/24 12:38
Sodium 134 mmol/L (135-145) L 02/06/24 07:30
Potassium 4.1 mmol/L (3.5-5.1) 02/06/24 07:30
BUN 36 mg/dl (7-17) H 02/06/24 07:30
Creatinine 1.4 mg/dL (0.6-1.0) H 02/06/24 07:30
Glucose 91 mg/dl (70-99) 02/06/24 07:30
Troponins
02/04/24 02/04/24 02/04/24
13:30 13:57 18:36
Troponin I Cancelled 0.032 0.039 H*
02/05/24 02/05/24
00:26 07:23
Troponin I 0.036 H* 0.037 H*
Vital Signs and I&O:
Vital Signs
Temp Pulse Resp BP Pulse Ox
97.5 F 62 17 121/55 97
02/06/24 07:52 02/06/24 08:50 02/06/24 07:52 02/06/24 08:50 02/06/24 07:52
Vital Signs
Temp Pulse Resp BP Pulse Ox
97.5 F 62 17 121/55 97
02/06/24 07:52 02/06/24 08:50 02/06/24 07:52 02/06/24 08:50 02/06/24 07:52
Intake & Output
02/04/24 02/05/24 02/06/24 02/07/24
06:59 06:59 06:59 06:59
Intake Total 480 / 480 180 / 180
Output Total 550 / 550 1450 / 1450
Balance -70 / -70 -1270 / -1270
Physical Exam
Physical Exam
GEN: No distress, awake, alert, oriented x3
HEENT: supple, anicteric, mmm
LUNGS: CTA b/l, no wheezes/rales
CV: Irreg, S1/S2, 2/6 syst murmur
EXT: No clubbing, cyanosis, or edema
NEURO: Gross non-focal
SKIN: Warm, dry, no rash
--- NOTE | 2024-02-06 11:45 | W.PN.HOSP.TC ---
Today's Communication/Plan
-
Monitor vital signs see plan
Continue with clears
Transfuse hemoglobin less than 7
Hold Eliquis
Monitor orthostatics
Assessment / Plan
Assessment / Plan
General: No Apparent Distress and Comfortable
HEENT: Anicteric and Moist mucous membranes
Respiratory: Clear and Non Labored Respirations; No Wheezes
Cardiac: S1/S2 and Regular Rhythm
Breast: Deferred by me
GI: Soft, Non Tender, Non Distended and Normal Bowel Sounds
Rectal: Deferred by Provider
Genito-urinary: No Saba
Musculoskeletal: No Edema
Neuro: Awake, Alert, Oriented and AO x 3
Psych: Calm and Intact Judgment/Insight
Shortness of breath secondary to acute on chronic CHF with reduced EF
Echo EF 20 to 25% by AUDI 12/11/2023
Chronic left bundle branch block
s/p Medtronic COAL DELIVERER-P 12/29/20
Chest x-ray noted
cardiology following
IV Lasix now on hold by cards
Per patient and her son her stripping machine operator stopped her Eliquis; ant is ongoing discussion however per son its likely not going to happen
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
per med rec on Lopressor; should switch to toprol
Check orthostatics
Elevated troponin likely from non myocardial injury
persistent A-fib
Status post AV node ablation 12/16/2023
Hold BB for now; per med rec on lopressor
eliquis dc'ed by primary stripping machine operator Dr Harvey
was on amio on last dc but currently not on amio anymore
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
Does have chronic anemia; iron deficient; cw IV iron
Hemoglobin this morning 7.4; Continue to monitor
Transfuse hemoglobin less than 7, blood consent in chart
Heme positive stool, GI following
Continue PPI
EGD 01/25 noted with few small ectasia in the gastric body, antrum and duodenal bulb. Cauterized with APC
Mild hyponatremia
Monitor
Essential hypertension
Monitor
Hold Lopressor for now
History of CKD 3
Monitor
History of diabetes mellitus
A1c 7.4
Sliding scale, Accu-Cheks. Continue glipizide
History of right parietal ischemic stroke
Hyperlipidemia
DVT prophylaxis
Heparin
DNR, confirmed with patient admission
Discussed with son 02/04 in great detail. He is speaking with the patient regarding possible need for palliative care in future.
I spent a total of 52 minutes with the patient or on the floor. More than 50% of this time involved counseling and coordination of care.
Anticipated Discharge: > 48 hours
Subjective/Interval History
-
Date of Service: February 06, 2024
Denies abdominal pain
Objective Data
-
Labs:
Laboratory Results
02/06/24
07:30
WBC 5.0
Hgb 7.4 L
Hct 24.6 L
Plt Count 201
Sodium 134 L
Potassium 4.1
Chloride 104
Carbon Dioxide 27
BUN 36 H
Creatinine 1.4 H
Glucose 91
Calcium 8.4
Vital Signs:
Vital Signs
Temp Pulse Resp BP Pulse Ox
97.7 F 62 17 113/48 99
02/06/24 11:44 02/06/24 11:44 02/06/24 11:44 02/06/24 11:44 02/06/24 11:44
I&O
02/05/24 02/06/24 02/07/24
06:59 06:59 06:59
Intake Total 480 / 480 180 / 180
Output Total 550 / 550 1450 / 1450
Balance -70 / -70 -1270 / -1270
[2024-02-06] MEDS: FERRLECIT 110 MG IV (14:22)
[2024-02-06] MEDS: NOVOLOG FLEXPEN-LOW RESISTANCE 4 UNITS SC ×2 (14:22→17:38)
--- NOTE | 2024-02-06 15:02 | CM ---
met with patient at bedside and spoke with melecio canchola.patient to cont iv ppi,on clears,cont iv iron,monitor hgb.spoke with silvana amaya who spoke with dr sandoval.plan is to hold off on scope.dr sandoval to see patient per TT.asking if the patient will
remain in the hospital over the weekend. melecio canchola wants to dc the bed hold if patient is not going to be discharged until next week,trying to get an answer for family.
plan is to dc back to [facility] if bed available for patient.
--- NOTE | 2024-02-06 16:01 | W.PN.UPDATE ---
Update Note
Progress Note Update
for billing purposes only
[2024-02-06 16:16] LABS: Glucose - Point of Care 309 mg/dl (70-99)
[2024-02-06 18:10] LABS: Transferrin 204 mg/dL (200-360)
[2024-02-06 21:09] LABS: Glucose - Point of Care 62 mg/dl (70-99)
[2024-02-06] MEDS: DESYREL 25 MG PO (21:11)
[2024-02-06] MEDS: LIPITOR 40 MG PO (21:11)
[2024-02-06 21:48] LABS: Glucose - Point of Care 104 mg/dl (70-99)
[2024-02-06 23:42] LABS: Glucose - Point of Care 130 mg/dl (70-99)
--- NOTE | 2024-02-07 01:45 | PTCARENOTE ---
Went into pt room to take BS per hypoglycemic protocol. Fingers were cold and not having adequate blood sample. Rectal temp obtained after a failed oral and axillary attempt. Temp was 95.6. TRAVEL COORDINATOR notified and anika hugger ordered. While waiting for the
anika hugger to arrive on unit multiple warmed blankets were placed on pt.
[2024-02-07 03:07] VITALS: BP 100/50
[2024-02-07 03:32] LABS: Glucose - Point of Care 135 mg/dl (70-99)
--- NOTE | 2024-02-07 03:40 | PTCARENOTE ---
Pt's rectal temp 96.7, anika hugger order obtained and placed on pt., will continue to monitor.
[2024-02-07] MEDS: SYNTHROID 100 MCG PO (06:11)
[2024-02-07 07:50] VITALS: BP 119/54
[2024-02-07 08:26] LABS: % Basophils 0.5 % (0-2); % Eosinophils 1.7 % (0-6); % Lymphocytes 14.6 % (20.5-51.1); % Monocytes 8.3 % (1.7-9.3); % Neutrophils 73.9 % (42.2-75.2); Absolute Eosinophils 0.1 10^3/uL (0-0.7); Absolute Lymphocytes 0.6 10^3/uL (1.2-3.4); Absolute Monocytes 0.3 10^3/uL (0.1-0.6); Hematocrit 23.7 % (37.0-47.0); Hemoglobin 7.6 g/dL (12.0-16.0); Mean Corp Hgb Conc. 32.1 g/dL (33.0-37.0); Mean Corpuscular Hgb 32.3 pg (27.0-31.0); Mean Corpuscular Volume 100.9 fL (81.0-99.0); Mean Platelet Volume 10.2 fL (7.4-10.4); Nucleated Red Blood Cells % 0 %; Platelet Count 195 10^3/uL (130-400); Red Blood Cell Count 2.35 10^6/uL (4.20-5.40); Red Cell Dist. Width 20.5 % (11.5-14.5); White Blood Cell Count 4.1 10^3/uL (4.8-10.8)
[2024-02-07 08:53] LABS: Blood Urea Nitrogen 23 mg/dl (7-17); Calcium 8.6 mg/dl (8.4-10.2); Carbon Dioxide 26 mmol/L (22-30); Chloride 107 mmol/L (98-107); Estimated Creatinine Clearance 22 ml/min; Glucose 97 mg/dl (70-99); Potassium 4.3 mmol/L (3.5-5.1); Sodium 136 mmol/L (135-145); eGFR 48.33
[2024-02-07] MEDS: LIDOCAINE 4% PATCH 1 PATCH TOPICAL (09:18)
[2024-02-07] MEDS: NSS (PRESERVATIVE FREE) 10 ML IV ×2 (09:21→21:45)
[2024-02-07] MEDS: PROTONIX IV 40 MG IV ×2 (09:21→21:45)
[2024-02-07] MEDS: HEPARIN 5000 UNITS SC ×2 (09:21→21:42)
[2024-02-07] MEDS: TOPROL XL 25 MG PO (09:22)
[2024-02-07] MEDS: VITAMIN B-12 1000 MCG PO (09:22)
[2024-02-07 09:24] LABS: Glucose - Point of Care 103 mg/dl (70-99)
[2024-02-07] MEDS: NOVOLOG FLEXPEN-LOW RESISTANCE SC (09:26)
[2024-02-07] MEDS: GLUCOTROL PO (09:33)
--- NOTE | 2024-02-07 10:01 | W.PN.CARDCBS ---
Today's Communication / Plan
-
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 No plan for urgent endoscopy at this time
Hb 7.6 on february 06 has been in the 7s range this admit. Transfuse as needed. Receiving iron. Heme +
GI to eval diarrhea
Wt is down over 10 lbs from admit although not clear accurate
Cr improved with lasix held. Creat was up to 1.4 02/05 and is now improved. Consider lasix 20 mg daily as outpt once closer to discharge; She was not on lasix prior to admit
Continue to follow daily weights, I&Os, and cr.
Recent AUDI 12/2023 with EF 20-25% as noted above.
-Continue Toprol 25mg daily for medical therapy for CM.
- Previously on spironolactone which has been on hold due to hypotension and renal insufficiency.
Hx persistent Afib and CVA, although Eliquis has been on hold again with recurrent anemia and GI Bleed. Resume anticoagulation once ok from GI standpoint.
Difficult situation as her stroke risk is elevated but her bleeding risk remains higher.
She is s/p AV node ablation and HR remains stable. Continue Toprol. Previously amiodarone stopped as outpt as it was felt to be ineffective.
-She is being considered for Watchman through Dr. Harvey
Impression / Plan
-
.
PCP: Dr. Olga Curry
Wool Tamper: Dr. Harvey
Impression:
Multifactorial SOB
Acute on chronic HFrEF
Acute on chronic anemia, improving from last admission
Acute renal failure
Recent admission for acute blood loss anemia, GIB 01/22- 01/27/24
h/o GI bleeding/recurrent anemia presumed due to AV malformations
Nonischemic CM EF 20-25% by AUDI 12/11/23
Persistent Afib/tach/aflutter
Chronic amiodarone therapy, stopped by Dr. Harvey 01/30/24
Chronic Eliquis OAC
s/p AV node ablation 12/16/23
s/p Medtronic EMERY GRINDER-P 12/29/20
Chronic LBBB
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
h/o right parietal ischemic stroke 06/2020
Hypertension
Hyperlipidemia
AUDI 12/11/23: HRH study, EF 20-25%
Plan:
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 No plan for urgent endoscopy at this time
Hb 7.6 on february 06 has been in the 7s range this admit. Transfuse as needed. Receiving iron. Heme +
GI to eval diarrhea
Wt is down over 10 lbs from admit although not clear accurate
Cr improved with lasix held. Creat was up to 1.4 02/05 and is now improved. Consider lasix 20 mg daily as outpt once closer to discharge; She was not on lasix prior to admit
Continue to follow daily weights, I&Os, and cr.
Recent AUDI 12/2023 with EF 20-25% as noted above.
-Continue Toprol 25mg daily for medical therapy for CM.
- Previously on spironolactone which has been on hold due to hypotension and renal insufficiency.
Hx persistent Afib and CVA, although Eliquis has been on hold again with recurrent anemia and GI Bleed. Resume anticoagulation once ok from GI standpoint.
Difficult situation as her stroke risk is elevated but her bleeding risk remains higher.
She is s/p AV node ablation and HR remains stable. Continue Toprol. Previously amiodarone stopped as outpt as it was felt to be ineffective.
-She is being considered for Watchman through Dr. Harvey
HPI: Patient came to [facility] from [facility] today with abnormal lab work concerning for anemia and is now being admitted for acute HFrEF resulting in cardiology consult. Patient was just admitted to 01/23/24 until 01/27/24 with anemia in the setting of
GIB. Pateint was transfused with 2 units PRBCs that admission and EGD showed a few small ectasias that were cauterized with APC therefore she was felt to be stable to resume Eliquis at 2.5 mg BID prior to discharge. Patient has a h/o GIB, but has
remained on OAC due to h/o persistent atrial arrhythmia and CVA as well. Patient was also recently at 12/16/23 to 12/17/23 after being transferred from [facility] for an AV node ablation. Her EF was down to 20-25% by cath at [facility] at that time, but no
evidence of acute HF and patient was not on a daily diuretic. Patient now c/o SOB and pro-BNP is 3670. Patient was given Lasix 40 mg IV x1 in DHER.
Progress Note - Wool Tamper
Subjective
Date of Service: February 07, 2024
Pt seen and examined. No cp or dyspnea.
Objective
Labs:
02/07/24 08:08
02/07/24 08:08
Labs
Hgb 7.6 g/dL (12.0-16.0) L 02/07/24 08:08
Hct 23.7 % (37.0-47.0) L 02/07/24 08:08
Plt Count 195 10^3/uL (130-400) 02/07/24 08:08
PT 15.0 Sec (11.4-14.6) H 02/04/24 12:38
INR 1.18 02/04/24 12:38
APTT 25.4 Sec (23.4-35.0) 02/04/24 12:38
Sodium 136 mmol/L (135-145) 02/07/24 08:08
Potassium 4.3 mmol/L (3.5-5.1) 02/07/24 08:08
BUN 23 mg/dl (7-17) H 02/07/24 08:08
Creatinine 1.1 mg/dL (0.6-1.0) H 02/07/24 08:08
Glucose 97 mg/dl (70-99) 02/07/24 08:08
Troponins
02/04/24 02/04/24 02/04/24
13:30 13:57 18:36
Troponin I Cancelled 0.032 0.039 H*
02/05/24 02/05/24
00:26 07:23
Troponin I 0.036 H* 0.037 H*
Vital Signs and I&O:
Vital Signs
Temp Pulse Resp BP Pulse Ox
97.5 F 100 18 100/50 100
02/07/24 05:30 02/07/24 03:07 02/07/24 03:07 02/07/24 03:07 02/07/24 03:07
Vital Signs
Temp Pulse Resp BP Pulse Ox
97.5 F 100 18 100/50 100
02/07/24 05:30 02/07/24 03:07 02/07/24 03:07 02/07/24 03:07 02/07/24 03:07
Intake & Output
02/05/24 02/06/24 02/07/24 02/08/24
06:59 06:59 06:59 06:59
Intake Total 480 / 480 180 / 180 900 / 900
Output Total 550 / 550 1450 / 1450 150 / 150
Balance -70 / -70 -1270 / -1270 750 / 750
Physical Exam
Physical Exam
General: No acute distress, AAOX3
Neck: Negative JVD
Heart: Irregularly irregular, Negative S3 positive S1/S2, Negative S4, No murmur
Lungs: CTA b/l, negative wheezes/rales/rhonchi
Abd: Positive BS, NT/ND, neg rebound/rigidity/guarding
Ext: Negative cyanosis/clubbing/edema
Neuro: nonfocal
[2024-02-07 11:08] VITALS: BP 138/66
[2024-02-07 11:31] LABS: Glucose - Point of Care 245 mg/dl (70-99)
--- NOTE | 2024-02-07 12:03 | W.PN.HOSP.TC ---
Today's Communication/Plan
-
Monitor vital signs
see plan
GI to see today, if no procedure planned this hospitalization then can initiate diet
Stool studies
Likely low-dose Lasix on discharge
Monitor renal function
Son updated over the phone
Assessment / Plan
Assessment / Plan
General: No Apparent Distress and Comfortable
HEENT: Anicteric and Moist mucous membranes
Respiratory: Clear and Non Labored Respirations; No Wheezes
Cardiac: S1/S2 and Regular Rhythm
Breast: Deferred by me
GI: Soft, Non Tender, Non Distended and Normal Bowel Sounds
Rectal: Deferred by Provider
Genito-urinary: No Saba
Musculoskeletal: No Edema
Neuro: Awake, Alert, Oriented and AO x 3
Psych: Calm and Intact Judgment/Insight
Shortness of breath secondary to acute on chronic CHF with reduced EF
Echo EF 20 to 25% by AUDI 12/11/2023
Chronic left bundle branch block
s/p Medtronic BOILER TUBE REAMER-P 12/29/20
Chest x-ray noted
cardiology following
IV Lasix now on hold by cards
Per patient and her son her recovery operator stopped her Eliquis; watchmann is ongoing discussion however per son its likely not going to happen. spoke with patient and son and they want to hold eliquis and likely dont want it to be started. they
understand high risk of CVA but bleeding risk is also high
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
per med rec on Lopressor; should switch to toprol
Check orthostatics
abdominal cramping with diarrhea
Pending stool studies
Monitor
Elevated troponin likely from non myocardial injury
persistent A-fib
Status post AV node ablation 12/16/2023
Hold BB for now; per med rec on lopressor
eliquis dc'ed by primary recovery operator Dr Harvey
was on amio on last dc but currently not on amio anymore
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
Does have chronic anemia; iron deficient; cw IV iron
Hemoglobin this morning 7.4; Continue to monitor
Transfuse hemoglobin less than 7, blood consent in chart
Heme positive stool, GI following
Continue PPI
EGD 01/25 noted with few small ectasia in the gastric body, antrum and duodenal bulb. Cauterized with APC
Mild hyponatremia
Monitor
Essential hypertension
Monitor
Hold Lopressor for now
History of CKD 3
Monitor
History of diabetes mellitus
A1c 7.4
Sliding scale, Accu-Cheks. Continue glipizide
History of right parietal ischemic stroke
Hyperlipidemia
DVT prophylaxis
Heparin
DNR, confirmed with patient admission
Discussed with son 02/04 in great detail. He is speaking with the patient regarding possible need for palliative care in future.
I spent a total of 53 minutes with the patient or on the floor. More than 50% of this time involved counseling and coordination of care.
Anticipated Discharge: 24 - 48 hours
Subjective/Interval History
-
Date of Service: February 07, 2024
denies pain
Objective Data
-
Labs:
Laboratory Results
02/07/24
08:08
WBC 4.1 L
Hgb 7.6 L
Hct 23.7 L
Plt Count 195
Sodium 136
Potassium 4.3
Chloride 107
Carbon Dioxide 26
BUN 23 H
Creatinine 1.1 H
Glucose 97
Calcium 8.6
Vital Signs:
Vital Signs
Temp Pulse Resp BP Pulse Ox
97.5 F 67 18 138/66 100
02/07/24 11:08 02/07/24 11:08 02/07/24 11:08 02/07/24 11:08 02/07/24 11:08
I&O
02/06/24 02/07/24 02/08/24
06:59 06:59 06:59
Intake Total 180 / 180 900 / 900
Output Total 1450 / 1450 150 / 150
Balance -1270 / -1270 750 / 750
[2024-02-07] MEDS: NOVOLOG FLEXPEN-LOW RESISTANCE 2 UNITS SC ×2 (13:02→17:02)
--- NOTE | 2024-02-07 13:13 | W.PN.GI.CBS2 ---
Today's Communication / Plan
-
stool studies
monitor hgb
Assessment / Plan
-
Pt with a hx of multiple AVM bleeds in past with numerous endoscopic interventions. Does have some diarrhea but hemoglobin remains stable and no overt bleeidng
1. check stool studies
2. monitor hgb and transfuse as necessary
3. heme and cardiology following
4. if hgb stable tomorrow would restart anticoagulation
5. no current plan for endoscopic procedures
Subjective
Subjective
Date of Service: February 07, 2024
Pt w/o bleeding. some loose stool noted
Objective
Data Reviewed
Laboratory Data:
Laboratory Results
02/07/24 08:08
02/07/24 08:08
Laboratory Results
PT 15.0 Sec (11.4-14.6) H 02/04/24 12:38
INR 1.18 02/04/24 12:38
APTT 25.4 Sec (23.4-35.0) 02/04/24 12:38
Total Bilirubin 0.6 mg/dl (0.2-1.3) 02/04/24 13:57
AST 30 U/L (14-36) 02/04/24 13:57
ALT 20 U/L (0-35) 02/04/24 13:57
Alkaline Phosphatase 84 U/L (38-126) 02/04/24 13:57
Vital Signs and I&O:
Vital Signs
Temp Pulse Resp BP Pulse Ox
97.5 F 67 18 138/66 100
02/07/24 11:08 02/07/24 11:08 02/07/24 11:08 02/07/24 11:08 02/07/24 11:08
I&O
02/06/24 02/07/24 02/08/24
06:59 06:59 06:59
Intake Total 180 / 180 900 / 900
Output Total 1450 / 1450 150 / 150
Balance -1270 / -1270 750 / 750
Physical Exam
Physical Exam
GI: Soft, Non Distended and Non Tender
[2024-02-07] MEDS: GLUCOTROL 5 MG PO ×2 (13:29→17:05)
[2024-02-07] MEDS: FERRLECIT 110 MG IV (13:29)
[2024-02-07 15:53] VITALS: BP 119/55
[2024-02-07 16:41] LABS: Glucose - Point of Care 249 mg/dl (70-99)
[2024-02-07 19:56] VITALS: BP 124/92
[2024-02-07 21:40] LABS: Glucose - Point of Care 187 mg/dl (70-99)
[2024-02-07] MEDS: DESYREL 25 MG PO (21:46)
[2024-02-07] MEDS: LIPITOR 40 MG PO (21:47)
[2024-02-07 23:30] VITALS: BP 119/42
[2024-02-08 04:12] VITALS: BP 122/56
[2024-02-08] MEDS: SYNTHROID 100 MCG PO (06:45)
[2024-02-08 07:50] VITALS: BP 97/46
[2024-02-08 08:21] LABS: Glucose - Point of Care 134 mg/dl (70-99)
[2024-02-08] MEDS: NOVOLOG FLEXPEN-LOW RESISTANCE SC (08:23)
[2024-02-08] MEDS: PROTONIX IV 40 MG IV ×2 (08:24→21:03)
[2024-02-08] MEDS: NSS (PRESERVATIVE FREE) 10 ML IV ×2 (08:24→21:03)
[2024-02-08] MEDS: HEPARIN 5000 UNITS SC ×2 (08:24→21:04)
[2024-02-08] MEDS: GLUCOTROL 5 MG PO ×2 (08:25→16:55)
[2024-02-08] MEDS: LIDOCAINE 4% PATCH 1 PATCH TOPICAL (08:25)
[2024-02-08] MEDS: VITAMIN B-12 1000 MCG PO (08:25)
[2024-02-08] MEDS: TOPROL XL PO (08:27)
[2024-02-08 08:51] LABS: % Basophils 0.5 % (0-2); % Eosinophils 2.1 % (0-6); % Immature Granulocytes 0.5 % (0-0.5); % Lymphocytes 16.1 % (20.5-51.1); % Monocytes 7.6 % (1.7-9.3); % Neutrophils 73.2 % (42.2-75.2); Absolute Eosinophils 0.1 10^3/uL (0-0.7); Absolute Lymphocytes 0.7 10^3/uL (1.2-3.4); Absolute Monocytes 0.3 10^3/uL (0.1-0.6); Absolute Neutrophils 3.2 10^3/uL (1.4-6.5); Hematocrit 25.1 % (37.0-47.0); Hemoglobin 7.3 g/dL (12.0-16.0); Mean Corp Hgb Conc. 29.1 g/dL (33.0-37.0); Mean Corpuscular Hgb 31.2 pg (27.0-31.0); Mean Corpuscular Volume 107.3 fL (81.0-99.0); Mean Platelet Volume 10.7 fL (7.4-10.4); Nucleated Red Blood Cells % 0 %; Platelet Count 186 10^3/uL (130-400); Red Blood Cell Count 2.34 10^6/uL (4.20-5.40); Red Cell Dist. Width 19.5 % (11.5-14.5); White Blood Cell Count 4.3 10^3/uL (4.8-10.8)
--- NOTE | 2024-02-08 08:57 | W.PN.CARDCBS ---
Today's Communication / Plan
-
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 No plan for endoscopy at this time
Hb 7.6 on february 06 and 7.3 February 07 and has been in the 7s range this admit. Transfuse as needed. Receiving iron. Heme +
Hx persistent Afib and CVA, although Eliquis has been on hold again with recurrent anemia and GI Bleed. Resume anticoagulation once ok from GI standpoint.
Difficult situation as her stroke risk is elevated but her bleeding risk remains higher.
She is s/p AV node ablation and HR remains stable. Continue Toprol. Previously amiodarone stopped as outpt as it was felt to be ineffective.
-She is being considered for Watchman through Dr. Harvey
Wt is down over 10 lbs from admit although not clear accurate
Cr was improving with lasix held and worsened again to 1.5, possibly from volume losses from diarrhea. Cont to hold lasix. Creat was up to 1.4 02/05. Consider lasix 20 mg daily as outpt once closer to discharge and if cr improves; She was not on
lasix prior to admit
Impression / Plan
-
.
PCP: Dr. Olga Curry
Servicer: Dr. Harvey
Impression:
Multifactorial SOB
Acute on chronic HFrEF
Acute on chronic anemia, improving from last admission
Acute renal failure
Recent admission for acute blood loss anemia, GIB 01/22- 01/27/24
h/o GI bleeding/recurrent anemia presumed due to AV malformations
Nonischemic CM EF 20-25% by AUDI 12/11/23
Persistent Afib/tach/aflutter
Chronic amiodarone therapy, stopped by Dr. Harvey 01/30/24
Chronic Eliquis OAC
s/p AV node ablation 12/16/23
s/p Medtronic SPOOL SORTER-P 12/29/20
Chronic LBBB
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
h/o right parietal ischemic stroke 06/2020
Hypertension
Hyperlipidemia
AUDI 12/11/23: HRH study, EF 20-25%
Plan:
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 No plan for endoscopy at this time
Hb 7.6 on february 06 and 7.3 February 07 and has been in the 7s range this admit. Transfuse as needed. Receiving iron. Heme +
Hx persistent Afib and CVA, although Eliquis has been on hold again with recurrent anemia and GI Bleed. Resume anticoagulation once ok from GI standpoint.
Difficult situation as her stroke risk is elevated but her bleeding risk remains higher.
She is s/p AV node ablation and HR remains stable. Continue Toprol. Previously amiodarone stopped as outpt as it was felt to be ineffective.
-She is being considered for Watchman through Dr. Harvey
Wt is down over 10 lbs from admit although not clear accurate
Cr was improving with lasix held and worsened again to 1.5, possibly from volume losses from diarrhea. Cont to hold lasix. Creat was up to 1.4 02/05. Consider lasix 20 mg daily as outpt once closer to discharge and if cr improves; She was not on
lasix prior to admit
Continue to follow daily weights, I&Os, and cr.
Recent AUDI 12/2023 with EF 20-25% as noted above.
-Continue Toprol 25mg daily for medical therapy for CM.
- Previously on spironolactone which has been on hold due to hypotension and renal insufficiency.
HPI: Patient came to [facility] from [facility] today with abnormal lab work concerning for anemia and is now being admitted for acute HFrEF resulting in cardiology consult. Patient was just admitted to 01/23/24 until 01/27/24 with anemia in the setting of
GIB. Pateint was transfused with 2 units PRBCs that admission and EGD showed a few small ectasias that were cauterized with APC therefore she was felt to be stable to resume Eliquis at 2.5 mg BID prior to discharge. Patient has a h/o GIB, but has
remained on OAC due to h/o persistent atrial arrhythmia and CVA as well. Patient was also recently at 12/16/23 to 12/17/23 after being transferred from [facility] for an AV node ablation. Her EF was down to 20-25% by cath at [facility] at that time, but no
evidence of acute HF and patient was not on a daily diuretic. Patient now c/o SOB and pro-BNP is 3670. Patient was given Lasix 40 mg IV x1 in DHER.
Progress Note - Servicer
Subjective
Date of Service: February 08, 2024
Objective
Labs:
Labs
Hgb 7.6 g/dL (12.0-16.0) L 02/07/24 08:08
Hct 23.7 % (37.0-47.0) L 02/07/24 08:08
Plt Count 195 10^3/uL (130-400) 02/07/24 08:08
PT 15.0 Sec (11.4-14.6) H 02/04/24 12:38
INR 1.18 02/04/24 12:38
APTT 25.4 Sec (23.4-35.0) 02/04/24 12:38
Sodium 136 mmol/L (135-145) 02/07/24 08:08
Potassium 4.3 mmol/L (3.5-5.1) 02/07/24 08:08
BUN 23 mg/dl (7-17) H 02/07/24 08:08
Creatinine 1.1 mg/dL (0.6-1.0) H 02/07/24 08:08
Glucose 97 mg/dl (70-99) 02/07/24 08:08
Vital Signs and I&O:
Vital Signs
Temp Pulse Resp BP Pulse Ox
98.2 F 64 14 97/46 99
02/08/24 07:50 02/08/24 07:50 02/08/24 07:50 02/08/24 08:27 02/08/24 07:50
Vital Signs
Temp Pulse Resp BP Pulse Ox
98.2 F 64 14 97/46 99
02/08/24 07:50 02/08/24 07:50 02/08/24 07:50 02/08/24 08:27 02/08/24 07:50
Intake & Output
02/06/24 02/07/24 02/08/24 02/09/24
06:59 06:59 06:59 06:59
Intake Total 180 / 180 900 / 900 1200 / 1200
Output Total 1450 / 1450 150 / 150
Balance -1270 / -1270 750 / 750 1200 / 1200
Physical Exam
Physical Exam
General: No acute distress, AAOX3
Neck: Negative JVD
Heart: Irrwegularly irregular, Negative S3 positive S1/S2, Negative S4, No murmur
Lungs: CTA b/l, negative wheezes/rales/rhonchi
Abd: Positive BS, NT/ND, neg rebound/rigidity/guarding
Ext: Negative cyanosis/clubbing/edema
Neuro: nonfocal
[2024-02-08 09:15] LABS: Blood Urea Nitrogen 27 mg/dl (7-17); Calcium 8.2 mg/dl (8.4-10.2); Carbon Dioxide 24 mmol/L (22-30); Chloride 108 mmol/L (98-107); Estimated Creatinine Clearance 16 ml/min; Glucose 116 mg/dl (70-99); Sodium 134 mmol/L (135-145); eGFR 33.31
[2024-02-08 09:22] LABS: Potassium 4.5 mmol/L (3.5-5.1)
--- NOTE | 2024-02-08 10:24 | W.PN.GI.CBS2 ---
Today's Communication / Plan
-
no endoscopic intervention
Assessment / Plan
-
Pt with a hx of multiple AVM bleeds in past with numerous endoscopic interventions. Did have diarrhea but that resolved and hemoglobin remains stable and no overt bleeidng
1. can restart anticoagulation if needed
2. no current plan for endoscopic procedures
will sign off call with questions
Subjective
Subjective
Date of Service: February 08, 2024
Pt with no bleeding, no diarrhea
Objective
Data Reviewed
Laboratory Data:
Laboratory Results
02/08/24 06:54
02/08/24 06:54
Laboratory Results
PT 15.0 Sec (11.4-14.6) H 02/04/24 12:38
INR 1.18 02/04/24 12:38
APTT 25.4 Sec (23.4-35.0) 02/04/24 12:38
Total Bilirubin 0.6 mg/dl (0.2-1.3) 02/04/24 13:57
AST 30 U/L (14-36) 02/04/24 13:57
ALT 20 U/L (0-35) 02/04/24 13:57
Alkaline Phosphatase 84 U/L (38-126) 02/04/24 13:57
Vital Signs and I&O:
Vital Signs
Temp Pulse Resp BP Pulse Ox
98.2 F 64 14 97/46 99
02/08/24 07:50 02/08/24 07:50 02/08/24 07:50 02/08/24 08:27 02/08/24 07:50
I&O
02/07/24 02/08/24 02/09/24
06:59 06:59 06:59
Intake Total 900 / 900 1200 / 1200
Output Total 150 / 150
Balance 750 / 750 1200 / 1200
Physical Exam
Physical Exam
GI: Soft, Non Distended and Non Tender
[2024-02-08 11:37] VITALS: BP 117/96
[2024-02-08 12:00] LABS: Glucose - Point of Care 257 mg/dl (70-99)
--- NOTE | 2024-02-08 12:23 | W.PN.HOSP.TC ---
Today's Communication/Plan
-
monitor vitals
see plan
hgb 7.3
spoke with patient and son and they want to hold eliquis and likely dont want it to be started. they understand high risk of CVA but bleeding risk is also high. They will follow-up with outpatient executive pastry chef before starting eliquis
dc when [facility]; family likely going to get palliative there
Assessment / Plan
Assessment / Plan
General: No Apparent Distress and Comfortable
HEENT: Anicteric and Moist mucous membranes
Respiratory: Clear and Non Labored Respirations; No Wheezes
Cardiac: S1/S2 and Regular Rhythm
Breast: Deferred by me
GI: Soft, Non Tender, Non Distended and Normal Bowel Sounds
Rectal: Deferred by Provider
Genito-urinary: No Saba
Musculoskeletal: No Edema
Neuro: Awake, Alert, Oriented and AO x 3
Psych: Calm and Intact Judgment/Insight
Shortness of breath secondary to acute on chronic CHF with reduced EF
Echo EF 20 to 25% by AUDI 12/11/2023
Chronic left bundle branch block
s/p Medtronic RN CORONARY CARE UNIT-P 12/29/20
Chest x-ray noted
cardiology following
IV Lasix now on hold by cards, will likely resume at low-dose 20 mg daily on discharge
Per patient and her son her executive pastry chef stopped her Eliquis; watchmann is ongoing discussion however per son its likely not going to happen. spoke with patient and son and they want to hold eliquis and likely dont want it to be started. they
understand high risk of CVA but bleeding risk is also high. They will follow-up with outpatient executive pastry chef before starting eliquis
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
per med rec on Lopressor; should switch to toprol
Check orthostatics neg
abdominal cramping with diarrhea
Symptoms resolved, DC stool studies
Elevated troponin likely from non myocardial injury
persistent A-fib
Status post AV node ablation 12/16/2023
Hold BB for now; per med rec on lopressor
eliquis dc'ed by primary executive pastry chef Dr Harvey
was on amio on last dc but currently not on amio anymore
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
Does have chronic anemia; iron deficient; cw IV iron
Hemoglobin this morning 7.4; Continue to monitor
Transfuse hemoglobin less than 7, blood consent in chart
Heme positive stool, GI following
Continue PPI
EGD 01/25 noted with few small ectasia in the gastric body, antrum and duodenal bulb. Cauterized with APC
Mild hyponatremia
Monitor
Essential hypertension
Monitor
Hold Lopressor for now
History of CKD 3
Monitor
History of diabetes mellitus
A1c 7.4
Sliding scale, Accu-Cheks. Continue glipizide
History of right parietal ischemic stroke
Hyperlipidemia
DVT prophylaxis
Heparin
DNR, confirmed with patient admission
Discussed with son 02/04 in great detail. He is speaking with the patient regarding possible need for palliative care in future.
I spent a total of 52 minutes with the patient or on the floor. More than 50% of this time involved counseling and coordination of care.
Anticipated Discharge: Within 24 hours
Subjective/Interval History
-
Date of Service: February 08, 2024
Denies pain
Objective Data
-
Labs:
Laboratory Results
02/08/24
06:54
WBC 4.3 L
Hgb 7.3 L
Hct 25.1 L
Plt Count 186
Sodium 134 L
Potassium 4.5
Chloride 108 H
Carbon Dioxide 24
BUN 27 H
Creatinine 1.5 H
Glucose 116 H
Calcium 8.2 L
Vital Signs:
Vital Signs
Temp Pulse Resp BP Pulse Ox
98.2 F 57 16 117/96 98
02/08/24 11:37 02/08/24 11:37 02/08/24 11:37 02/08/24 11:37 02/08/24 11:37
I&O
02/07/24 02/08/24 02/09/24
06:59 06:59 06:59
Intake Total 900 / 900 1200 / 1200
Output Total 150 / 150
Balance 750 / 750 1200 / 1200
[2024-02-08] MEDS: NOVOLOG FLEXPEN-LOW RESISTANCE 3 UNITS SC ×2 (14:07→16:55)
[2024-02-08] MEDS: FERRLECIT 110 MG IV (14:10)
[2024-02-08 15:40] VITALS: BP 137/60
[2024-02-08 16:50] LABS: Glucose - Point of Care 279 mg/dl (70-99)
[2024-02-08 19:33] VITALS: BP 141/65
[2024-02-08] MEDS: LIPITOR 40 MG PO (21:03)
[2024-02-08] MEDS: DESYREL 25 MG PO (21:03)
[2024-02-08 22:06] LABS: Glucose - Point of Care 235 mg/dl (70-99)
[2024-02-08 23:13] VITALS: BP 129/50
[2024-02-09] VITALS (7 sets, daily range): BP systolic 112–140; BP diastolic 51–79; PULSE 67–72; O2SAT 99–100; BMI 22.0
[2024-02-09] MEDS: SYNTHROID 100 MCG PO (05:43)
[2024-02-09 07:38] LABS: % Basophils 0.8 % (0-2); % Immature Granulocytes 0.5 % (0-0.5); % Lymphocytes 14.3 % (20.5-51.1); % Monocytes 8.3 % (1.7-9.3); % Neutrophils 73.1 % (42.2-75.2); Absolute Eosinophils 0.1 10^3/uL (0-0.7); Absolute Lymphocytes 0.6 10^3/uL (1.2-3.4); Absolute Monocytes 0.3 10^3/uL (0.1-0.6); Absolute Neutrophils 2.9 10^3/uL (1.4-6.5); Hematocrit 24.8 % (37.0-47.0); Hemoglobin 7.3 g/dL (12.0-16.0); Mean Corp Hgb Conc. 29.4 g/dL (33.0-37.0); Mean Corpuscular Hgb 31.5 pg (27.0-31.0); Mean Corpuscular Volume 106.9 fL (81.0-99.0); Mean Platelet Volume 10.7 fL (7.4-10.4); Nucleated Red Blood Cells % 0 %; Platelet Count 181 10^3/uL (130-400); Red Blood Cell Count 2.32 10^6/uL (4.20-5.40); Red Cell Dist. Width 18.5 % (11.5-14.5)
[2024-02-09 07:42] LABS: Glucose - Point of Care 127 mg/dl (70-99)
[2024-02-09] MEDS: NOVOLOG FLEXPEN-LOW RESISTANCE SC (07:43)
[2024-02-09 08:08] LABS: Blood Urea Nitrogen 26 mg/dl (7-17); Calcium 8.3 mg/dl (8.4-10.2); Carbon Dioxide 24 mmol/L (22-30); Chloride 109 mmol/L (98-107); Estimated Creatinine Clearance 22 ml/min; Glucose 114 mg/dl (70-99); Potassium 4.3 mmol/L (3.5-5.1); Sodium 135 mmol/L (135-145); eGFR 48.33
[2024-02-09] MEDS: TOPROL XL 25 MG PO (09:02)
[2024-02-09] MEDS: VITAMIN B-12 1000 MCG PO (09:02)
[2024-02-09] MEDS: GLUCOTROL 5 MG PO ×2 (09:02→16:54)
[2024-02-09] MEDS: PROTONIX IV 40 MG IV ×2 (09:03→21:51)
[2024-02-09] MEDS: LIDOCAINE 4% PATCH 1 PATCH TOPICAL (09:03)
[2024-02-09] MEDS: NSS (PRESERVATIVE FREE) 10 ML IV ×2 (09:03→21:51)
[2024-02-09] MEDS: HEPARIN 5000 UNITS SC ×2 (09:03→21:51)
--- NOTE | 2024-02-09 09:04 | W.PN.CARDCBS ---
Addendum entered and electronically signed by Jaime Gay DO 02/09/24 11:02:
I saw and examined the patient.
The Porter Luggage's note was reviewed and I agree with the note.
Comment:
Plan:
Cont Toprol for rate control
Family and pt wish to hold to continue to hold anticoagulation for now and review with primary blueberry grower Dr Harvey.
He had been starting eval for Watchman as outpt
Resume oral lasix at d/c and check BMP 1 week
Will arrange outpt cardiac follow up
Please recall if needed.
Original Note:
Today's Communication / Plan
-
Continue to hold Eliquis per patient's wishes
Continue Toprol for rate control
Consider d/c on low dose PO lasix 20mg daily w/ BMP in 1 week.
Follow up w/ Dr. Harvey arranged
Impression / Plan
-
PCP: Dr. Olga Curry
Service Person: Dr. Harvey
Impression:
Multifactorial SOB
Acute on chronic HFrEF
Acute on chronic anemia, improving from last admission
Acute renal failure
Recent admission for acute blood loss anemia, GIB 01/22- 01/27/24
h/o GI bleeding/recurrent anemia presumed due to AV malformations
Nonischemic CM EF 20-25% by AUDI 12/11/23
Persistent Afib/tach/aflutter
Chronic amiodarone therapy, stopped by Dr. Harvey 01/30/24
Chronic Eliquis OAC
s/p AV node ablation 12/16/23
s/p [employer] MEDICINE AND HEALTH SERVICE MANAGER-P 12/29/20
Chronic LBBB
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
h/o right parietal ischemic stroke 06/2020
Hypertension
Hyperlipidemia
AUDI 12/11/23: HRH study, EF 20-25%
Plan:
-Presented with anemia and evidence of acute heart failure.
-Was diuresed with IV lasix 40mg daily, however has been on hold since 02/04 due to hypotension and ALENA. Creat down to 1.1 02/08.
-Consider lasix 20 mg daily at discharge. She was not on lasix prior to admit. BMP in 1 week.
-Weight 101lbs 02/08. Continue to follow daily weights, I&Os, and renal function.
-EF 12/2023 with EF 20-25% as noted above.
-Continue Toprol 25mg daily for medical therapy. Previously on spironolactone which has been on hold due to hypotension and ALENA.
-Also with h/o GIB and AVMs w/ APC of ectasias last admission and now this admission has had anemia, although has not required transfusion thus far.
-Hgb 7.3 02/08. No plan for repeat endoscopy per GI.
-Has h/o Afib and CVA, although Eliquis has been on hold again with recurrent anemia and GIB. Per GI, ok to resume AC, however given significant bleeding risk, patient and son prefer to hold off for now and will follow up with primary blueberry grower
prior to restarting.
-Remains in persistent atrial fibrillation. s/p AV node ablation and HR stable on review of telemetry. Continue Toprol. Previously amiodarone stopped as OP as it was felt to be ineffective.
-Follow up w/ Dr. Harvey arranged.
HPI: Patient [facility] from [facility] today with abnormal lab work concerning for anemia and is now being admitted for acute HFrEF resulting in cardiology consult. Patient was just admitted to 01/23/24 until 01/27/24 with anemia in the setting of
GIB. Pateint was transfused with 2 units PRBCs that admission and EGD showed a few small ectasias that were cauterized with APC therefore she was felt to be stable to resume Eliquis at 2.5 mg BID prior to discharge. Patient has a h/o GIB, but has
remained on OAC due to h/o persistent atrial arrhythmia and CVA as well. Patient was also recently at 12/16/23 to 12/17/23 after being transferred from [facility] for an AV node ablation. Her EF was down to 20-25% by cath at [facility] at that time, but no
evidence of acute HF and patient was not on a daily diuretic. Patient now c/o SOB and pro-BNP is 3670. Patient was given Lasix 40 mg IV x1 in DHER.
Progress Note - Service Person
Subjective
Date of Service: February 09, 2024
Feeling well with no complaints.
Objective
Labs:
02/09/24 07:05
02/09/24 07:05
Labs
Hgb 7.3 g/dL (12.0-16.0) L 02/09/24 07:05
Hct 24.8 % (37.0-47.0) L 02/09/24 07:05
Plt Count 181 10^3/uL (130-400) 02/09/24 07:05
PT 15.0 Sec (11.4-14.6) H 02/04/24 12:38
INR 1.18 02/04/24 12:38
APTT 25.4 Sec (23.4-35.0) 02/04/24 12:38
Sodium 135 mmol/L (135-145) 02/09/24 07:05
Potassium 4.3 mmol/L (3.5-5.1) 02/09/24 07:05
BUN 26 mg/dl (7-17) H 02/09/24 07:05
Creatinine 1.1 mg/dL (0.6-1.0) H 02/09/24 07:05
Glucose 114 mg/dl (70-99) H 02/09/24 07:05
Vital Signs and I&O:
Vital Signs
Temp Pulse Resp BP Pulse Ox
98.1 F 61 18 130/54 98
02/09/24 07:55 02/09/24 07:55 02/09/24 07:55 02/09/24 07:55 02/09/24 07:55
Vital Signs
Temp Pulse Resp BP Pulse Ox
98.1 F 61 18 130/54 98
02/09/24 07:55 02/09/24 07:55 02/09/24 07:55 02/09/24 07:55 02/09/24 07:55
Intake & Output
02/07/24 02/08/24 02/09/24 02/10/24
06:59 06:59 06:59 06:59
Intake Total 900 / 900 1200 / 1200 1260 / 1260
Output Total 150 / 150 640 / 640
Balance 750 / 750 1200 / 1200 620 / 620
Physical Exam
Physical Exam
GEN: No distress, awake, alert, oriented x3
HEENT: supple, anicteric, mmm
LUNGS: CTA b/l, no wheezes/rales
CV: Irreg, S1/S2, no murmur
EXT: No clubbing, cyanosis, or edema
NEURO: Gross non-focal
SKIN: Warm, dry, no rash
--- NOTE | 2024-02-09 11:11 | W.PN.HOSP.TC ---
Today's Communication/Plan
-
Monitor vital signs see plan
Symptoms slowly improving
Discharge today to [facility] if bed available
monitor hgb
Assessment / Plan
Assessment / Plan
General: No Apparent Distress and Comfortable
HEENT: Anicteric and Moist mucous membranes
Respiratory: Clear and Non Labored Respirations; No Wheezes
Cardiac: S1/S2 and Regular Rhythm
GI: Soft, Non Tender, Non Distended and Normal Bowel Sounds
Genito-urinary: No Saba
Musculoskeletal: No Edema
Neuro: Awake, Alert, Oriented and AO x 3
Psych: Calm and Intact Judgment/Insight
Shortness of breath secondary to acute on chronic CHF with reduced EF
Echo EF 20 to 25% by AUDI 12/11/2023
Chronic left bundle branch block
s/p [employer] EMERGENCY MEDICINE NURSE PRACTITIONER-P 12/29/20
Chest x-ray noted
cardiology following
IV Lasix now on hold by cards, will likely resume at low-dose 20 mg daily on discharge
Per patient and her son her ic designer custom stopped her Eliquis; anjalimann is ongoing discussion however per son its likely not going to happen. spoke with patient and son and they want to hold eliquis and likely dont want it to be started. they
understand high risk of CVA but bleeding risk is also high. They will follow-up with outpatient ic designer custom before starting eliquis
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
per med rec on Lopressor; should switch to toprol
orthostatics neg
abdominal cramping with diarrhea
Symptoms resolved, DC stool studies
Elevated troponin likely from non myocardial injury
persistent A-fib
Status post AV node ablation 12/16/2023
Hold BB for now; per med rec on lopressor
eliquis dc'ed by primary ic designer custom Dr Harvey
was on amio on last dc but currently not on amio anymore
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
Does have chronic anemia; iron deficient; cw IV iron
Hemoglobin this morning 7.4; Continue to monitor
Transfuse hemoglobin less than 7, blood consent in chart
Heme positive stool, GI following
Continue PPI
EGD 01/25 noted with few small ectasia in the gastric body, antrum and duodenal bulb. Cauterized with APC
Mild hyponatremia
Monitor
Essential hypertension
Monitor
Hold Lopressor for now
History of CKD 3
Monitor
History of diabetes mellitus
A1c 7.4
Sliding scale, Accu-Cheks. Continue glipizide
History of right parietal ischemic stroke
Hyperlipidemia
DVT prophylaxis
Heparin
DNR, confirmed with patient admission
Discussed with son 02/04 in great detail. He is speaking with the patient regarding possible need for palliative care in future.
Anticipated Discharge: Today
Subjective/Interval History
-
Date of Service: February 09, 2024
Denies dizziness
Objective Data
-
Labs:
Laboratory Results
02/09/24
07:05
WBC 4.0 L
Hgb 7.3 L
Hct 24.8 L
Plt Count 181
Sodium 135
Potassium 4.3
Chloride 109 H
Carbon Dioxide 24
BUN 26 H
Creatinine 1.1 H
Glucose 114 H
Calcium 8.3 L
Vital Signs:
Vital Signs
Temp Pulse Resp BP Pulse Ox
98.1 F 61 18 130/54 98
02/09/24 07:55 02/09/24 07:55 02/09/24 07:55 02/09/24 07:55 02/09/24 07:55
I&O
02/08/24 02/09/24 02/10/24
06:59 06:59 06:59
Intake Total 1200 / 1200 1260 / 1260
Output Total 640 / 640
Balance 1200 / 1200 620 / 620
[2024-02-09 11:59] LABS: Glucose - Point of Care 294 mg/dl (70-99)
--- NOTE | 2024-02-09 12:42 | CM ---
air export logistics manager reviewed patient's chart and spoke with patient's physician and patient has been cleared for discharge today, residential case manager reached out to admissions at [facility] and patient's family did not hold the bed for patient and therefore
patient is a new referral, referral sent and per Yelitza in admissions at [facility] they can take tomorrow.
[facility]
Report [phone]
[2024-02-09] MEDS: NOVOLOG FLEXPEN-LOW RESISTANCE 3 UNITS SC (12:59)
[2024-02-09] MEDS: FERRLECIT 110 MG IV (15:22)
--- NOTE | 2024-02-09 15:38 | W.HF.CON ---
Heart Failure
- LV Function
Left ventricular function study result: LV Ejection fraction </= 35% (AUDI [facility] 12/11/23)
Ejection Fraction Percentage: 20-25
- ARNI
Patient already on ARNI: No
Heart Failure ARNI Contraindication: Acute Renal Failure, Hypotension
- ACEI/ARB
Patient already on ACEI/ARB: No
Heart Failure ACEI/ARB Contraindication: Acute Renal Failure, Hypotension
- Beta Chloé
Patient already on Evidence Based Beta Chloé: Yes
- Mineralocorticord Receptor Antagonist
Patient already on MRA: No
Heart Failure MRA Contraindication: Acute Renal Insufficiency, Hypotension
- SGLT-2 Inhibitor
Patient already on SGLT-2 Inhibitor: No
Heart Failure SGLT-2 Inhibitor Contraindication: Patient Refusal
- Afib Anticoagulation
Patient already on Anticoagulation for Afib: No
Heart Failure Afib Anticoagulation Contraindication: Patient Refusal
- NYHA CHF Classification
NYHA CHF Classification Level: Class III - Symptoms w/ min exertion, interferes w/ nml daily activity
- ACC/AHA Stage
ACC/AHA Stage: Stage C: Symptomatic Heart Failure
[2024-02-09 16:49] LABS: Glucose - Point of Care 213 mg/dl (70-99)
[2024-02-09] MEDS: NOVOLOG FLEXPEN-LOW RESISTANCE 2 UNITS SC (16:54)
[2024-02-09 21:34] LABS: Glucose - Point of Care 180 mg/dl (70-99)
[2024-02-09] MEDS: DESYREL 25 MG PO (21:56)
[2024-02-09] MEDS: LIPITOR 40 MG PO (21:57)
[2024-02-10 06:00] VITALS: BMI 21.9
[2024-02-10] MEDS: SYNTHROID 100 MCG PO (06:10)
[2024-02-10 07:33] LABS: Glucose - Point of Care 123 mg/dl (70-99)
[2024-02-10] MEDS: NOVOLOG FLEXPEN-LOW RESISTANCE SC (07:42)
[2024-02-10 07:50] VITALS: BP 131/56
[2024-02-10 08:45] LABS: % Basophils 0.4 % (0-2); % Eosinophils 3.4 % (0-6); % Immature Granulocytes 0.8 % (0-0.5); % Lymphocytes 14.2 % (20.5-51.1); % Monocytes 8.5 % (1.7-9.3); % Neutrophils 72.7 % (42.2-75.2); Absolute Eosinophils 0.2 10^3/uL (0-0.7); Absolute Lymphocytes 0.7 10^3/uL (1.2-3.4); Absolute Monocytes 0.4 10^3/uL (0.1-0.6); Absolute Neutrophils 3.4 10^3/uL (1.4-6.5); Hematocrit 25.7 % (37.0-47.0); Hemoglobin 7.8 g/dL (12.0-16.0); Mean Corp Hgb Conc. 30.4 g/dL (33.0-37.0); Mean Corpuscular Hgb 31.8 pg (27.0-31.0); Mean Corpuscular Volume 104.9 fL (81.0-99.0); Mean Platelet Volume 10.9 fL (7.4-10.4); Nucleated Red Blood Cells % 0 %; Platelet Count 190 10^3/uL (130-400); Red Blood Cell Count 2.45 10^6/uL (4.20-5.40); Red Cell Dist. Width 18.3 % (11.5-14.5); White Blood Cell Count 4.7 10^3/uL (4.8-10.8)
[2024-02-10] MEDS: VITAMIN B-12 1000 MCG PO (08:46)
[2024-02-10] MEDS: LIDOCAINE 4% PATCH 1 PATCH TOPICAL (08:47)
[2024-02-10] MEDS: TOPROL XL 25 MG PO (08:47)
[2024-02-10] MEDS: HEPARIN 5000 UNITS SC (08:47)
[2024-02-10] MEDS: GLUCOTROL 5 MG PO (08:47)
[2024-02-10] MEDS: NSS (PRESERVATIVE FREE) 10 ML IV (08:47)
[2024-02-10] MEDS: PROTONIX IV 40 MG IV (08:48)
[2024-02-10 09:17] LABS: Blood Urea Nitrogen 28 mg/dl (7-17); Calcium 8.4 mg/dl (8.4-10.2); Carbon Dioxide 24 mmol/L (22-30); Chloride 109 mmol/L (98-107); Estimated Creatinine Clearance 20 ml/min; Glucose 109 mg/dl (70-99); Potassium 5.1 mmol/L (3.5-5.1); Sodium 133 mmol/L (135-145); eGFR 43.54
--- NOTE | 2024-02-10 09:24 | CM ---
Addendum entered by Sonia Daniels 02/10/24 11:05:
CM spoke with patient son and he indicated that he would transport patient via personal care and declined wheelchair van at this time. Patient son requested patient be ready by noon. CM updated nursing. CM will continue to follow for discharge
planning needs.
Original Note:
Patient seen at bedside, confirmed with Yelitza at [facility] available bed and tt to physician requesting discharge if appropriate to SNF. Awaiting response from physician and from commissions coordinator re, ambulance vs wheelchair van, forms completed
and on chart. CM will continue to follow for discharge planning needs.
Plan; SNF today pending physician assessment
Jenny Maguire
Report [phone]
--- NOTE | 2024-02-10 10:30 | W.PN.HOSP.TC ---
Addendum entered and electronically signed by Jordon Herring MD 02/10/24 13:25:
spoke with patient's son, discussed that patient needs to be on 20 mg p.o. daily Lasix. He said he will discuss with Jenny and will make sure patient has that on her medications.
Original Note:
Today's Communication/Plan
-
Monitor vital signs
see plan
Discharge today
Time of discharge 38 minutes
Assessment / Plan
Assessment / Plan
General: No Apparent Distress and Comfortable
HEENT: Anicteric and Moist mucous membranes
Respiratory: Clear and Non Labored Respirations; No Wheezes
Cardiac: S1/S2 and Regular Rhythm
GI: Soft, Non Tender, Non Distended and Normal Bowel Sounds
Genito-urinary: No Saba
Musculoskeletal: No Edema
Neuro: Awake, Alert, Oriented and AO x 3
Psych: Calm and Intact Judgment/Insight
Shortness of breath secondary to acute on chronic CHF with reduced EF
Echo EF 20 to 25% by AUDI 12/11/2023
Chronic left bundle branch block
s/p [employer] MENTALLY IMPAIRED TEACHER-P 12/29/20
Chest x-ray noted
cardiology following
IV Lasix now on hold by cards, will likely resume at low-dose 20 mg daily on discharge
Per patient and her son her clinical care manager stopped her Eliquis; anjalimann is ongoing discussion however per son its likely not going to happen. spoke with patient and son and they want to hold eliquis and likely dont want it to be started. they
understand high risk of CVA but bleeding risk is also high. They will follow-up with outpatient clinical care manager before starting eliquis
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
per med rec on Lopressor; should switch to toprol
orthostatics neg
abdominal cramping with diarrhea
Symptoms resolved, DC stool studies
Elevated troponin likely from non myocardial injury
persistent A-fib
Status post AV node ablation 12/16/2023
Hold BB for now; per med rec on lopressor
eliquis dc'ed by primary clinical care manager Dr Harvey
was on amio on last dc but currently not on amio anymore
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
Does have chronic anemia; iron deficient; cw IV iron
Hemoglobin this morning 7.8; Continue to monitor
Transfuse hemoglobin less than 7, blood consent in chart
Heme positive stool, GI following
Continue PPI
EGD 01/25 noted with few small ectasia in the gastric body, antrum and duodenal bulb. Cauterized with APC
Mild hyponatremia
Monitor
Essential hypertension
Monitor
Hold Lopressor for now
History of CKD 3
Monitor
History of diabetes mellitus
A1c 7.4
Sliding scale, Accu-Cheks. Continue glipizide
History of right parietal ischemic stroke
Hyperlipidemia
DVT prophylaxis
Heparin
DNR, confirmed with patient admission
Discussed with son 02/04 in great detail. He is speaking with the patient regarding possible need for palliative care in future.
Anticipated Discharge: Today
Subjective/Interval History
-
Date of Service: February 10, 2024
Denies dizziness, pain
Objective Data
-
Labs:
Laboratory Results
02/10/24
07:25
WBC 4.7 L
Hgb 7.8 L
Hct 25.7 L
Plt Count 190
Sodium 133 L
Potassium 5.1
Chloride 109 H
Carbon Dioxide 24
BUN 28 H
Creatinine 1.2 H
Glucose 109 H
Calcium 8.4
Vital Signs:
Vital Signs
Temp Pulse Resp BP Pulse Ox
98.1 F 66 18 131/56 96
02/10/24 07:50 02/10/24 07:50 02/10/24 07:50 02/10/24 07:50 02/10/24 07:50
I&O
02/09/24 02/10/24 02/11/24
06:59 06:59 06:59
Intake Total 1260 / 1260 960 / 960
Output Total 640 / 640
Balance 620 / 620 960 / 960
--- NOTE | 2024-02-10 10:34 | W.DCSUMMARY ---
Discharge Summary
Discharge Data
Date of Admission: 02/04/24
Date of Discharge: 02/10/24
-
Pending Results: No
Hospital Course
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
shortness of breath which was likely secondary to acute on chronic congestive heart failure exacerbation. On this hospitalization patient also had dark stool with heme positive stools along with iron deficiency anemia. Patient was seen by
gastroenterology. Patient hemoglobin did not drop below 7 so patient did not require any blood transfusion. Eliquis was held on this hospitalization and upon discharge. I discussed with patient and her son and they both decided to hold Eliquis
until they speak with patient's outpatient entry level java developer. They understood increased risk of stroke off Eliquis. Given low ejection fraction and A-fib patient was started on Toprol. GI did not recommended any endoscopy at this time. Patient
symptoms started to improve and she was discharged to SNF on low dose daily lasix per cardiology recommendation.
Discharge Plan
-
Patient Disposition: [facility]/SNF
Discharge Diagnosis/Procedures: Acute on chronic congestive heart failure with reduced ejection fracture
Persistent atrial fibrillation
Heme positive stool with anemia
Diet: As tolerated
Activity: As tolerated
Driving Restrictions: As prior to admission
Blood Work: CBC and BMP next week with primary care provider
Activity Restrictions/Additional Instructions:
You chose to hold Eliquis on discharge. Discussed with Dr. Harvey regarding continuation of Eliquis.
Instructions: *[facility] Heart Failure Instructions
Referrals:
Lizandro Stevenson DO [Family Provider] - in less than 1 week
Benedicto Harvey MD [Active] - 02/25/24 11:20 am (You have a follow up visit with Dr. Harvey. Please call with questions. )
Prescriptions:
New
metoprolol succinate 25 mg Tablet Extended Release 24 Hr
25 mg PO DAILY Qty: 0 0RF
furosemide [Lasix] 20 mg tablet
20 mg PO DAILY Qty: 30 0RF
Continued
glipizide 10 MG tablet
5 mg PO BID
ferrous sulfate 325 mg (65 mg iron) Tablet
650 mg PO BID Qty: 0
atorvastatin 40 mg Tablet
40 mg PO HS
acetaminophen [Tylenol] 325 mg Tablet
650 mg PO Q4HPRN PRN (Reason: mild pain)
lidocaine 4 % Adhesive Patch,Medicated
1 patch TOPICAL DAILY
trazodone 50 mg Tablet
25 mg PO HS
magnesium hydroxide [Milk of Magnesia] 400 mg/5 mL Suspension
2,400 mg PO HSPRN PRN (Reason: constipation)
bisacodyl [Dulcolax (bisacodyl)] 10 mg Suppository
10 mg NH [id number] PRN (Reason: if no bm aftr mom)
cyanocobalamin (vitamin B-12) 1,000 mcg Tablet
1,000 mcg PO DAILY Qty: 30 0RF
trazodone 50 mg Tablet
25 mg PO Q8HPRN PRN (Reason: anxiety)
levothyroxine [Synthroid] 100 mcg Tablet
100 mcg PO DAILY
epoetin west 40,000 unit/mL Solution
20,000 unit SC Q2W
Rx Instructions:
every Friday
Changed
pantoprazole [Protonix] 40 mg tablet,delayed release (DR/EC)
40 mg PO BID Qty: 30 0RF
Held
spironolactone 25 MG tablet
12.5 mg PO DAILY
Hold Instructions: Resume on 02/04/24. until further directed by your PCP/[employer]
Eliquis 2.5 mg Tablet
2.5 mg PO BID
Hold Instructions: Until instructed by cardiology
Rx Instructions:
d/c by intermediate on 03/27/24 per entry level java developer
Discontinued
metoprolol tartrate [Lopressor] 100 mg Tablet
100 mg PO BID
Hold Instructions: Resume on 02/04/24. until further directed by your PCP/Gr[employer] 1 [employer] 6 Teacher
Discharge Orders:
Discharge Patient (As Directed); Ordered 02/10/24
Ordered By: Jordon Herring
Discharge Date and Time
Discharge Date/Time: 02/10/24 12:24
Print Language: NICARAGUAN
[2024-02-10 11:38] LABS: Glucose - Point of Care 242 mg/dl (70-99)
== END 2024-02-10 12:24 | DRG 291 ==
LOC: 4 WEST ACU 16:42
PROVIDERS: Emergency Medicine; ADMITTING PHYSICIAN Internal Medicine; CONSULT PHYSICIAN Nuclear Medicine Nuclear Cardiology; EMERGENCY PHYSICIAN Emergency Medicine; FAMILY PHYSICIAN Student in an Organized Health Care Education/Training Program; OTHER PHYSICIAN Internal Medicine
DX: I13.0 Hypertensive heart and chronic kidney disease with heart failure and stage 1 through stage 4 chronic kidney disease, or unspecified chronic kidney disease (principal); I50.23 Acute on chronic systolic (congestive) heart failure; I48.19 Other persistent atrial fibrillation; I48.92 Unspecified atrial flutter; E87.1 Hypo-osmolality and hyponatremia; N17.9 Acute kidney failure, unspecified; Z66 Do not resuscitate; D50.9 Iron deficiency anemia, unspecified; Z79.01 Long term (current) use of anticoagulants; K55.20 Angiodysplasia of colon without hemorrhage; E78.00 Pure hypercholesterolemia, unspecified; Z86.73 Personal history of transient ischemic attack (TIA), and cerebral infarction without residual deficits
CPT/HCPCS: 36415; 71046; 80048; 80053; 82607; 82728; 82746; 82962; 83540; 83550; 83735; 83880; 84443; 84466; 84484; 85014; 85018; 85025; 85610; 85730; 86850; 86870; 86900; 86901; 87070; 93005; 96374; 97116; 97162; 97167; 97530; 97535; 99285; J2916

== ENCOUNTER → 2024-02-16 12:50 | Outpatient (REF) | payer OTHER, MEDICARE, SELFPAY ==
[2024-02-16 13:53] LABS: % Basophils 0.4 % (0-2); % Eosinophils 1.8 % (0-6); % Immature Granulocytes 0.9 % (0-0.5); % Lymphocytes 13.7 % (20.5-51.1); % Monocytes 9.5 % (1.7-9.3); % Neutrophils 73.7 % (42.2-75.2); Absolute Eosinophils 0.1 10^3/uL (0-0.7); Absolute Lymphocytes 0.6 10^3/uL (1.2-3.4); Absolute Monocytes 0.4 10^3/uL (0.1-0.6); Absolute Neutrophils 3.3 10^3/uL (1.4-6.5); Hematocrit 23.6 % (37.0-47.0); Hemoglobin 7.4 g/dL (12.0-16.0); Mean Corp Hgb Conc. 31.4 g/dL (33.0-37.0); Mean Corpuscular Hgb 31.9 pg (27.0-31.0); Mean Corpuscular Volume 101.7 fL (81.0-99.0); Mean Platelet Volume 11.3 fL (7.4-10.4); Nucleated Red Blood Cells % 0 %; Platelet Count 188 10^3/uL (130-400); Red Blood Cell Count 2.32 10^6/uL (4.20-5.40); Red Cell Dist. Width 16.6 % (11.5-14.5); White Blood Cell Count 4.5 10^3/uL (4.8-10.8)
[2024-02-16 15:23] LABS: Free T4 1.69 ng/dl (0.78-2.19)
== END ==
LOC: OLABN 12:50
PROVIDERS: ATTENDING PHYSICIAN Student in an Organized Health Care Education/Training Program
DX: D68.59 Other primary thrombophilia (principal); E03.9 Hypothyroidism, unspecified
CPT/HCPCS: 36415; 84439; 84443; 85025

== ENCOUNTER → 2024-03-01 11:07 | Outpatient (REF) | payer MEDICARE, SELFPAY ==
[2024-03-01 14:41] LABS: Blood Urea Nitrogen 32 mg/dl (7-17); Calcium 8.9 mg/dl (8.4-10.2); Carbon Dioxide 27 mmol/L (22-30); Chloride 104 mmol/L (98-107); Glucose 63 mg/dl (70-99); Potassium 4.7 mmol/L (3.5-5.1); Sodium 136 mmol/L (135-145); eGFR 43.54
[2024-03-01 16:15] LABS: Free T4 1.76 ng/dl (0.78-2.19)
[2024-03-01 16:29] LABS: TSH 8.34 uIU/ml (0.47-4.68)
== END ==
LOC: OLABN 11:07
PROVIDERS: ATTENDING PHYSICIAN Student in an Organized Health Care Education/Training Program
DX: I70.90 Unspecified atherosclerosis (principal); E03.9 Hypothyroidism, unspecified
CPT/HCPCS: 36415; 80048; 84439; 84443

== ENCOUNTER → 2024-03-15 12:16 | Outpatient (REF) | payer MEDICARE, SELFPAY ==
[2024-03-15 12:47] LABS: % Basophils 0.4 % (0-2); % Eosinophils 1.2 % (0-6); % Immature Granulocytes 0.4 % (0-0.5); % Lymphocytes 14.3 % (20.5-51.1); % Monocytes 9.2 % (1.7-9.3); % Neutrophils 74.5 % (42.2-75.2); Absolute Eosinophils 0.1 10^3/uL (0-0.7); Absolute Lymphocytes 1.2 10^3/uL (1.2-3.4); Absolute Monocytes 0.7 10^3/uL (0.1-0.6); Hematocrit 38.7 % (37.0-47.0); Hemoglobin 11.8 g/dL (12.0-16.0); Mean Corp Hgb Conc. 30.5 g/dL (33.0-37.0); Mean Corpuscular Hgb 31.5 pg (27.0-31.0); Mean Corpuscular Volume 103.2 fL (81.0-99.0); Mean Platelet Volume 11.1 fL (7.4-10.4); Nucleated Red Blood Cells % 0 %; Platelet Count 220 10^3/uL (130-400); Red Blood Cell Count 3.75 10^6/uL (4.20-5.40); Red Cell Dist. Width 14.7 % (11.5-14.5); White Blood Cell Count 8.1 10^3/uL (4.8-10.8)
[2024-03-15 13:19] LABS: Free T4 2.05 ng/dl (0.78-2.19)
[2024-03-15 13:32] LABS: TSH 0.53 uIU/ml (0.47-4.68)
== END ==
LOC: OLABN 12:16
PROVIDERS: ATTENDING PHYSICIAN Student in an Organized Health Care Education/Training Program
DX: D68.59 Other primary thrombophilia (principal); E03.9 Hypothyroidism, unspecified
CPT/HCPCS: 36415; 84439; 84443; 85025

== ENCOUNTER → 2024-08-09 13:31 | Outpatient (REF) | payer OTHER, MEDICARE, SELFPAY ==
[2024-08-09 16:53] LABS: Blood Urea Nitrogen 58 mg/dl (7-17); Calcium 9.6 mg/dl (8.4-10.2); Carbon Dioxide 27 mmol/L (22-30); Chloride 102 mmol/L (98-107); Glucose 313 mg/dl (70-99); Potassium 5.3 mmol/L (3.5-5.1); Sodium 140 mmol/L (135-145); eGFR 35.96
== END ==
LOC: OLABN 13:31
PROVIDERS: ATTENDING PHYSICIAN Student in an Organized Health Care Education/Training Program
DX: R94.4 Abnormal results of kidney function studies (principal)
CPT/HCPCS: 36415; 80048